=== PATIENT | female | born 1970 | race Caucasian/White ===

== ENCOUNTER 2020-01-28 10:54 | Outpatient (REF) | payer OTHER, SELFPAY ==
[2020-01-28 11:36] LABS: MANUAL DIFF FLAG NO
[2020-01-28 11:41] LABS: Basophils Absolute Auto 0.1 X10*3/uL (0.0-0.2); Basophils Percent Auto 0.5 % (0-2); Eosinophils Absolute Auto 0.3 X10*3/uL (0.0-0.4); Eosinophils Percent Auto 3.3 % (0-4); Hematocrit 42.7 % (37-47); Hemoglobin 13.8 g/dl (12.0-16.0); Imm Gran Abs Auto 0.04 X10*3/uL (0.00-0.03); Imm Gran Pct Auto 0.4 % (0.0-0.4); Lymphocytes Absolute Auto 3.3 X10*3/uL (1.2-4.9); Lymphocytes Percent Auto 34.1 % (20-40); Mean Corpuscular HGB Conc 32.3 g/dl (31.0-35.0); Mean Corpuscular Hemoglobin 30.3 pg (27.0-33.0); Mean Corpuscular Volume 93.6 fL (80-98); Mean Platelet Volume 9.1 fL (9.4-12.3); Monocytes Absolute Auto 0.5 X10*3/uL (0.1-1.2); Monocytes Percent Auto 5.1 % (2-11); Neutrophils Absolute Auto 5.5 X10*3/uL (2.0-8.3); Neutrophils Percent Auto 56.6 % (45-73); Platelet Count 268 X10*3/uL (160-400); Red Blood Count 4.56 X10*6/uL (4.20-5.50); Red Cell Distribution Width 12.6 % (11.0-16.0); White Blood Count 9.8 X10*3/uL (4.8-10.8)
== END 2020-01-28 10:55 | disposition home or self-care (01) ==
LOC: HO.LABR 10:54
PROVIDERS: PCP Internal Medicine; Visit Provider Clinical Nurse Specialist Psychiatric/Mental Health, Adult
DX: Z79.899 Other long term (current) drug therapy (principal)
CPT/HCPCS: 36415; 85025

== ENCOUNTER 2020-03-04 12:31 | Outpatient (REF) | payer OTHER, SELFPAY ==
[2020-03-04 13:15] LABS: MANUAL DIFF FLAG NO
[2020-03-04 13:20] LABS: Basophils Absolute Auto 0.1 X10*3/uL (0.0-0.2); Basophils Percent Auto 0.5 % (0-2); Eosinophils Absolute Auto 0.3 X10*3/uL (0.0-0.4); Hematocrit 41.8 % (37-47); Hemoglobin 13.3 g/dl (12.0-16.0); Imm Gran Abs Auto 0.06 X10*3/uL (0.00-0.03); Imm Gran Pct Auto 0.5 % (0.0-0.4); Lymphocytes Percent Auto 32.7 % (20-40); Mean Corpuscular HGB Conc 31.8 g/dl (31.0-35.0); Mean Corpuscular Hemoglobin 29.8 pg (27.0-33.0); Mean Corpuscular Volume 93.7 fL (80-98); Mean Platelet Volume 8.8 fL (9.4-12.3); Monocytes Absolute Auto 0.6 X10*3/uL (0.1-1.2); Monocytes Percent Auto 4.8 % (2-11); Neutrophils Absolute Auto 7.4 X10*3/uL (2.0-8.3); Neutrophils Percent Auto 59.5 % (45-73); Platelet Count 312 X10*3/uL (160-400); Red Blood Count 4.46 X10*6/uL (4.20-5.50); Red Cell Distribution Width 12.7 % (11.0-16.0); White Blood Count 12.4 X10*3/uL (4.8-10.8)
== END 2020-03-04 12:32 | disposition home or self-care (01) ==
LOC: HO.LAB 12:31
PROVIDERS: PCP Internal Medicine; Visit Provider Clinical Nurse Specialist Psychiatric/Mental Health, Adult
DX: Z79.899 Other long term (current) drug therapy (principal)
CPT/HCPCS: 36415; 85025

== ENCOUNTER 2020-03-30 15:42 | Outpatient (REF) | payer OTHER, SELFPAY ==
[2020-03-30 16:32] LABS: MANUAL DIFF FLAG NO
[2020-03-30 16:38] LABS: Basophils Percent Auto 0.4 % (0-2); Eosinophils Absolute Auto 0.3 X10*3/uL (0.0-0.4); Eosinophils Percent Auto 2.5 % (0-4); Hematocrit 42.2 % (37-47); Hemoglobin 13.2 g/dl (12.0-16.0); Imm Gran Abs Auto 0.03 X10*3/uL (0.00-0.03); Imm Gran Pct Auto 0.3 % (0.0-0.4); Lymphocytes Absolute Auto 3.9 X10*3/uL (1.2-4.9); Lymphocytes Percent Auto 37.3 % (20-40); Mean Corpuscular HGB Conc 31.3 g/dl (31.0-35.0); Mean Corpuscular Hemoglobin 29.8 pg (27.0-33.0); Mean Corpuscular Volume 95.3 fL (80-98); Monocytes Absolute Auto 0.5 X10*3/uL (0.1-1.2); Monocytes Percent Auto 4.6 % (2-11); Neutrophils Absolute Auto 5.7 X10*3/uL (2.0-8.3); Neutrophils Percent Auto 54.9 % (45-73); Platelet Count 242 X10*3/uL (160-400); Red Blood Count 4.43 X10*6/uL (4.20-5.50); Red Cell Distribution Width 12.8 % (11.0-16.0); White Blood Count 10.4 X10*3/uL (4.8-10.8)
== END 2020-03-30 15:43 | disposition home or self-care (01) ==
LOC: HO.LABR 15:42
PROVIDERS: PCP Internal Medicine; Visit Provider Clinical Nurse Specialist Psychiatric/Mental Health, Adult
DX: Z79.899 Other long term (current) drug therapy (principal); E78.2 Mixed hyperlipidemia
CPT/HCPCS: 36415; 85025

== ENCOUNTER 2020-04-27 10:17 | Outpatient (REF) | payer OTHER, SELFPAY ==
[2020-04-27 11:34] LABS: MANUAL DIFF FLAG NO
[2020-04-27 11:45] LABS: Basophils Absolute Auto 0.1 X10*3/uL (0.0-0.2); Basophils Percent Auto 0.5 % (0-2); Eosinophils Absolute Auto 0.2 X10*3/uL (0.0-0.4); Eosinophils Percent Auto 1.9 % (0-4); Hematocrit 43.4 % (37-47); Hemoglobin 14.1 g/dl (12.0-16.0); Imm Gran Abs Auto 0.04 X10*3/uL (0.00-0.03); Imm Gran Pct Auto 0.4 % (0.0-0.4); Lymphocytes Absolute Auto 3.6 X10*3/uL (1.2-4.9); Lymphocytes Percent Auto 34.8 % (20-40); Mean Corpuscular HGB Conc 32.5 g/dl (31.0-35.0); Mean Corpuscular Hemoglobin 29.9 pg (27.0-33.0); Mean Corpuscular Volume 91.9 fL (80-98); Mean Platelet Volume 9.5 fL (9.4-12.3); Monocytes Absolute Auto 0.5 X10*3/uL (0.1-1.2); Neut%MD 57.4 %; Neutrophils Absolute Auto 5.9 X10*3/uL (2.0-8.3); Neutrophils Percent Auto 57.4 % (45-73); Platelet Count 245 X10*3/uL (160-400); Red Blood Count 4.72 X10*6/uL (4.20-5.50); Red Cell Distribution Width 12.8 % (11.0-16.0); WBCANC 10.3 X10*3/uL; White Blood Count 10.3 X10*3/uL (4.8-10.8)
[2020-05-01 15:07] LABS: Clozapine (Clozaril) 286 mcg/L; Norclozapine 103 mcg/L (25-400)
== END 2020-04-27 10:18 | disposition home or self-care (01) ==
LOC: HO.LABR 10:17
PROVIDERS: PCP Internal Medicine; Visit Provider Clinical Nurse Specialist Psychiatric/Mental Health, Adult
DX: Z79.899 Other long term (current) drug therapy (principal)
CPT/HCPCS: 36415; 80159; 85025; 85048

== ENCOUNTER 2020-05-27 11:09 | Outpatient (REF) | payer OTHER, SELFPAY ==
[2020-05-27 12:03] LABS: MANUAL DIFF FLAG NO
[2020-05-27 12:08] LABS: Basophils Absolute Auto 0.1 X10*3/uL (0.0-0.2); Basophils Percent Auto 0.5 % (0-2); Eosinophils Absolute Auto 0.3 X10*3/uL (0.0-0.4); Eosinophils Percent Auto 2.9 % (0-4); Hematocrit 41.9 % (37-47); Hemoglobin 13.6 g/dl (12.0-16.0); Imm Gran Abs Auto 0.04 X10*3/uL (0.00-0.03); Imm Gran Pct Auto 0.4 % (0.0-0.4); Lymphocytes Absolute Auto 3.9 X10*3/uL (1.2-4.9); Lymphocytes Percent Auto 40.9 % (20-40); Mean Corpuscular HGB Conc 32.5 g/dl (31.0-35.0); Mean Corpuscular Hemoglobin 30.2 pg (27.0-33.0); Mean Corpuscular Volume 92.9 fL (80-98); Mean Platelet Volume 9.7 fL (9.4-12.3); Monocytes Absolute Auto 0.5 X10*3/uL (0.1-1.2); Monocytes Percent Auto 5.4 % (2-11); Neut%MD 49.9 %; Neutrophils Absolute Auto 4.8 X10*3/uL (2.0-8.3); Neutrophils Percent Auto 49.9 % (45-73); Platelet Count 246 X10*3/uL (160-400); Red Blood Count 4.51 X10*6/uL (4.20-5.50); Red Cell Distribution Width 12.9 % (11.0-16.0); WBCANC 9.6 X10*3/uL; White Blood Count 9.6 X10*3/uL (4.8-10.8)
== END 2020-05-27 11:10 | disposition home or self-care (01) ==
LOC: HO.LABR 11:09
PROVIDERS: PCP Internal Medicine; Visit Provider Clinical Nurse Specialist Psychiatric/Mental Health, Adult
DX: Z79.899 Other long term (current) drug therapy (principal)
CPT/HCPCS: 36415; 85025; 85048

== ENCOUNTER 2020-06-24 11:46 | Outpatient (REF) | payer OTHER, SELFPAY ==
[2020-06-24 13:04] LABS: MANUAL DIFF FLAG NO
[2020-06-24 13:22] LABS: Basophils Absolute Auto 0.1 X10*3/uL (0.0-0.2); Basophils Percent Auto 0.5 % (0-2); Eosinophils Absolute Auto 0.3 X10*3/uL (0.0-0.4); Eosinophils Percent Auto 2.9 % (0-4); Hematocrit 44.4 % (37-47); Hemoglobin 14.1 g/dl (12.0-16.0); Imm Gran Abs Auto 0.03 X10*3/uL (0.00-0.03); Imm Gran Pct Auto 0.3 % (0.0-0.4); Lymphocytes Absolute Auto 3.8 X10*3/uL (1.2-4.9); Lymphocytes Percent Auto 35.5 % (20-40); Mean Corpuscular HGB Conc 31.8 g/dl (31.0-35.0); Mean Corpuscular Hemoglobin 29.9 pg (27.0-33.0); Mean Corpuscular Volume 94.3 fL (80-98); Mean Platelet Volume 9.6 fL (9.4-12.3); Monocytes Absolute Auto 0.5 X10*3/uL (0.1-1.2); Monocytes Percent Auto 4.9 % (2-11); Neut%MD 55.9 %; Neutrophils Absolute Auto 5.9 X10*3/uL (2.0-8.3); Neutrophils Percent Auto 55.9 % (45-73); Platelet Count 262 X10*3/uL (160-400); Red Blood Count 4.71 X10*6/uL (4.20-5.50); Red Cell Distribution Width 13.1 % (11.0-16.0); WBCANC 10.6 X10*3/uL; White Blood Count 10.6 X10*3/uL (4.8-10.8)
== END 2020-06-24 11:47 | disposition home or self-care (01) ==
LOC: HO.LABR 11:46
PROVIDERS: PCP Internal Medicine; Visit Provider Clinical Nurse Specialist Psychiatric/Mental Health, Adult
DX: Z79.899 Other long term (current) drug therapy (principal)
CPT/HCPCS: 36415; 85025; 85048

== ENCOUNTER 2020-07-22 13:32 | Outpatient (REF) | payer OTHER, SELFPAY ==
[2020-07-22 14:06] LABS: MANUAL DIFF FLAG NO
[2020-07-22 14:07] LABS: Basophils Absolute Auto 0.1 X10*3/uL (0.0-0.2); Basophils Percent Auto 0.6 % (0-2); Eosinophils Absolute Auto 0.3 X10*3/uL (0.0-0.4); Eosinophils Percent Auto 2.8 % (0-4); Hematocrit 45.3 % (37-47); Hemoglobin 14.6 g/dl (12.0-16.0); Imm Gran Abs Auto 0.03 X10*3/uL (0.00-0.03); Imm Gran Pct Auto 0.3 % (0.0-0.4); Lymphocytes Absolute Auto 3.3 X10*3/uL (1.2-4.9); Lymphocytes Percent Auto 31.5 % (20-40); Mean Corpuscular HGB Conc 32.2 g/dl (31.0-35.0); Mean Corpuscular Volume 93.2 fL (80-98); Mean Platelet Volume 8.9 fL (9.4-12.3); Monocytes Absolute Auto 0.5 X10*3/uL (0.1-1.2); Neutrophils Absolute Auto 6.2 X10*3/uL (2.0-8.3); Neutrophils Percent Auto 59.8 % (45-73); Platelet Count 262 X10*3/uL (160-400); Red Blood Count 4.86 X10*6/uL (4.20-5.50); Red Cell Distribution Width 13.1 % (11.0-16.0); White Blood Count 10.4 X10*3/uL (4.8-10.8)
== END 2020-07-22 13:33 | disposition home or self-care (01) ==
LOC: HO.LABR 13:32
PROVIDERS: PCP Internal Medicine; Visit Provider Clinical Nurse Specialist Psychiatric/Mental Health, Adult
DX: Z79.899 Other long term (current) drug therapy (principal)
CPT/HCPCS: 36415; 85025

== ENCOUNTER 2020-08-19 13:39 | Outpatient (REF) | payer OTHER, SELFPAY ==
[2020-08-19 14:31] LABS: MANUAL DIFF FLAG NO
[2020-08-19 14:35] LABS: Basophils Absolute Auto 0.1 X10*3/uL (0.0-0.2); Basophils Percent Auto 0.5 % (0-2); Eosinophils Absolute Auto 0.3 X10*3/uL (0.0-0.4); Hematocrit 41.3 % (37-47); Hemoglobin 13.4 g/dl (12.0-16.0); Imm Gran Abs Auto 0.03 X10*3/uL (0.00-0.03); Imm Gran Pct Auto 0.3 % (0.0-0.4); Lymphocytes Absolute Auto 3.6 X10*3/uL (1.2-4.9); Lymphocytes Percent Auto 36.9 % (20-40); Mean Corpuscular HGB Conc 32.4 g/dl (31.0-35.0); Mean Corpuscular Hemoglobin 30.3 pg (27.0-33.0); Mean Corpuscular Volume 93.4 fL (80-98); Mean Platelet Volume 9.4 fL (9.4-12.3); Monocytes Absolute Auto 0.6 X10*3/uL (0.1-1.2); Monocytes Percent Auto 6.4 % (2-11); Neut%MD 52.9 %; Neutrophils Absolute Auto 5.2 X10*3/uL (2.0-8.3); Neutrophils Percent Auto 52.9 % (45-73); Platelet Count 277 X10*3/uL (160-400); Red Blood Count 4.42 X10*6/uL (4.20-5.50); Red Cell Distribution Width 12.7 % (11.0-16.0); WBCANC 9.8 X10*3/uL; White Blood Count 9.8 X10*3/uL (4.8-10.8)
== END 2020-08-19 13:40 | disposition home or self-care (01) ==
LOC: HO.LABR 13:39
PROVIDERS: PCP Internal Medicine; Visit Provider Clinical Nurse Specialist Psychiatric/Mental Health, Adult
DX: Z79.899 Other long term (current) drug therapy (principal)
CPT/HCPCS: 36415; 85025; 85048

== ENCOUNTER 2020-09-27 09:22 | Outpatient (REF) | payer OTHER, SELFPAY ==
[2020-09-27 10:21] LABS: MANUAL DIFF FLAG NO
[2020-09-27 10:40] LABS: Basophils Absolute Auto 0.1 X10*3/uL (0.0-0.2); Basophils Percent Auto 0.6 % (0-2); Eosinophils Absolute Auto 0.3 X10*3/uL (0.0-0.4); Hematocrit 42.7 % (37-47); Hemoglobin 13.6 g/dl (12.0-16.0); Imm Gran Abs Auto 0.04 X10*3/uL (0.00-0.03); Imm Gran Pct Auto 0.4 % (0.0-0.4); Lymphocytes Absolute Auto 2.7 X10*3/uL (1.2-4.9); Lymphocytes Percent Auto 26.3 % (20-40); Mean Corpuscular HGB Conc 31.9 g/dl (31.0-35.0); Mean Corpuscular Hemoglobin 30.2 pg (27.0-33.0); Mean Corpuscular Volume 94.7 fL (80-98); Mean Platelet Volume 9.6 fL (9.4-12.3); Monocytes Absolute Auto 0.5 X10*3/uL (0.1-1.2); Monocytes Percent Auto 4.5 % (2-11); Neutrophils Absolute Auto 6.7 X10*3/uL (2.0-8.3); Neutrophils Percent Auto 65.2 % (45-73); Platelet Count 249 X10*3/uL (160-400); Red Blood Count 4.51 X10*6/uL (4.20-5.50); Red Cell Distribution Width 13.2 % (11.0-16.0); White Blood Count 10.2 X10*3/uL (4.8-10.8)
== END 2020-09-27 09:23 | disposition home or self-care (01) ==
LOC: HO.LABR 09:22
PROVIDERS: PCP Internal Medicine; Visit Provider Clinical Nurse Specialist Psychiatric/Mental Health, Adult
DX: Z79.899 Other long term (current) drug therapy (principal)
CPT/HCPCS: 36415; 85025

== ENCOUNTER 2020-10-26 14:39 | Outpatient (REF) | payer OTHER, SELFPAY ==
[2020-10-26 15:04] LABS: MANUAL DIFF FLAG NO
[2020-10-26 15:07] LABS: Basophils Absolute Auto 0.1 X10*3/uL (0.0-0.2); Basophils Percent Auto 0.4 % (0-2); Eosinophils Absolute Auto 0.3 X10*3/uL (0.0-0.4); Eosinophils Percent Auto 2.8 % (0-4); Hematocrit 41.5 % (37-47); Hemoglobin 13.3 g/dl (12.0-16.0); Imm Gran Abs Auto 0.04 X10*3/uL (0.00-0.03); Imm Gran Pct Auto 0.3 % (0.0-0.4); Lymphocytes Absolute Auto 3.7 X10*3/uL (1.2-4.9); Lymphocytes Percent Auto 31.2 % (20-40); Mean Corpuscular Hemoglobin 30.2 pg (27.0-33.0); Mean Corpuscular Volume 94.1 fL (80-98); Mean Platelet Volume 8.9 fL (9.4-12.3); Monocytes Absolute Auto 0.6 X10*3/uL (0.1-1.2); Monocytes Percent Auto 4.8 % (2-11); Neutrophils Absolute Auto 7.3 X10*3/uL (2.0-8.3); Neutrophils Percent Auto 60.5 % (45-73); Platelet Count 251 X10*3/uL (160-400); Red Blood Count 4.41 X10*6/uL (4.20-5.50); Red Cell Distribution Width 12.6 % (11.0-16.0)
== END 2020-10-26 14:40 | disposition home or self-care (01) ==
LOC: HO.LABR 14:39
PROVIDERS: PCP Internal Medicine; Visit Provider Clinical Nurse Specialist Psychiatric/Mental Health, Adult
DX: Z79.899 Other long term (current) drug therapy (principal)
CPT/HCPCS: 36415; 85025

== ENCOUNTER 2020-11-23 09:54 | Outpatient (REF) | payer OTHER, SELFPAY ==
[2020-11-23 10:32] LABS: Basophils Absolute Auto 0.1 X10*3/uL (0.0-0.2); Basophils Percent Auto 0.6 % (0-2); Eosinophils Absolute Auto 0.3 X10*3/uL (0.0-0.4); Eosinophils Percent Auto 2.9 % (0-4); Hematocrit 41.9 % (37-47); Hemoglobin 13.6 g/dl (12.0-16.0); Imm Gran Abs Auto 0.04 X10*3/uL (0.00-0.03); Imm Gran Pct Auto 0.4 % (0.0-0.4); Lymphocytes Absolute Auto 2.9 X10*3/uL (1.2-4.9); Lymphocytes Percent Auto 29.6 % (20-40); MANUAL DIFF FLAG NO; Mean Corpuscular HGB Conc 32.5 g/dl (31.0-35.0); Mean Corpuscular Hemoglobin 29.9 pg (27.0-33.0); Mean Corpuscular Volume 92.1 fL (80-98); Mean Platelet Volume 9.3 fL (9.4-12.3); Monocytes Absolute Auto 0.5 X10*3/uL (0.1-1.2); Monocytes Percent Auto 4.5 % (2-11); Neutrophils Absolute Auto 6.1 X10*3/uL (2.0-8.3); Platelet Count 242 X10*3/uL (160-400); Red Blood Count 4.55 X10*6/uL (4.20-5.50); Red Cell Distribution Width 12.8 % (11.0-16.0); White Blood Count 9.9 X10*3/uL (4.8-10.8)
== END 2020-11-23 09:55 | disposition home or self-care (01) ==
LOC: HO.LABR 09:54
PROVIDERS: PCP Internal Medicine; Visit Provider Clinical Nurse Specialist Psychiatric/Mental Health, Adult
DX: Z79.899 Other long term (current) drug therapy (principal)
CPT/HCPCS: 36415; 85025

== ENCOUNTER 2021-01-03 10:24 | Outpatient (REF) | payer OTHER, SELFPAY ==
[2021-01-03 11:08] LABS: MANUAL DIFF FLAG NO
[2021-01-03 11:47] LABS: Basophils Percent Auto 0.4 % (0-2); Eosinophils Absolute Auto 0.3 X10*3/uL (0.0-0.4); Eosinophils Percent Auto 2.6 % (0-4); Hematocrit 43.9 % (37-47); Hemoglobin 14.1 g/dl (12.0-16.0); Imm Gran Abs Auto 0.04 X10*3/uL (0.00-0.03); Imm Gran Pct Auto 0.4 % (0.0-0.4); Lymphocytes Absolute Auto 3.6 X10*3/uL (1.2-4.9); Lymphocytes Percent Auto 34.4 % (20-40); Mean Corpuscular HGB Conc 32.1 g/dl (31.0-35.0); Mean Corpuscular Volume 93.4 fL (80-98); Mean Platelet Volume 9.2 fL (9.4-12.3); Monocytes Absolute Auto 0.6 X10*3/uL (0.1-1.2); Monocytes Percent Auto 5.9 % (2-11); Neut%MD 56.3 %; Neutrophils Absolute Auto 5.9 X10*3/uL (2.0-8.3); Neutrophils Percent Auto 56.3 % (45-73); Platelet Count 293 X10*3/uL (160-400); Red Cell Distribution Width 13.1 % (11.0-16.0); WBCANC 10.5 X10*3/uL; White Blood Count 10.5 X10*3/uL (4.8-10.8)
== END 2021-01-03 10:25 | disposition home or self-care (01) ==
LOC: HO.LABR 10:24
PROVIDERS: Visit Provider Clinical Nurse Specialist Psychiatric/Mental Health, Adult
DX: Z79.899 Other long term (current) drug therapy (principal)
CPT/HCPCS: 36415; 85025

== ENCOUNTER 2021-01-13 12:16 | Outpatient (REF) | payer OTHER, SELFPAY ==
[2021-01-13 13:33] LABS: Alanine Aminotransferase 15 U/L (0-31); Alkaline Phosphatase 85 U/L (39-117); Anion Gap 10 (12-20); Aspartate Amino Transferase 12 U/L (5-31); Bilirubin Total 0.6 mg/dL (0.0-1.0); Blood Urea Nitrogen 12 mg/dL (9-16); Calcium 9.7 mg/dL (8.4-10.2); Carbon Dioxide 29 mmol/L (22-29); Chloride 105 mmol/L (96-108); Estimated Glomerular Filt Rate > 60; Glucose Random 97 mg/dL (60-115); Potassium 4.3 mmol/L (3.3-5.1); Sodium 140 mmol/L (135-145); Total Protein 6.7 g/dL (6.5-8.0)
[2021-01-13 13:35] LABS: Valproate 17.6 mcg/mL (50.0-100.0)
[2021-01-13 13:40] LABS: Lithium 0.83 mmol/L (0.60-1.20)
[2021-01-13 13:56] LABS: Thyroid Stimulating Hormone 0.79 uIU/mL (0.32-4.0)
== END 2021-01-13 12:17 | disposition home or self-care (01) ==
LOC: HO.LAB 12:16
PROVIDERS: PCP Internal Medicine; Visit Provider Clinical Nurse Specialist Psychiatric/Mental Health, Adult
DX: Z79.899 Other long term (current) drug therapy (principal)
CPT/HCPCS: 36415; 80053; 80164; 80178; 84443

== ENCOUNTER 2021-01-31 09:07 | Outpatient (REF) | payer OTHER, SELFPAY ==
[2021-01-31 09:32] LABS: MANUAL DIFF FLAG NO
[2021-01-31 10:06] LABS: Basophils Absolute Auto 0.1 X10*3/uL (0.0-0.2); Basophils Percent Auto 0.5 % (0-2); Eosinophils Absolute Auto 0.3 X10*3/uL (0.0-0.4); Eosinophils Percent Auto 3.2 % (0-4); Hematocrit 44.6 % (37-47); Hemoglobin 14.1 g/dl (12.0-16.0); Imm Gran Abs Auto 0.05 X10*3/uL (0.00-0.03); Imm Gran Pct Auto 0.5 % (0.0-0.4); Lymphocytes Absolute Auto 3.1 X10*3/uL (1.2-4.9); Lymphocytes Percent Auto 29.4 % (20-40); Mean Corpuscular HGB Conc 31.6 g/dl (31.0-35.0); Mean Corpuscular Hemoglobin 29.8 pg (27.0-33.0); Mean Corpuscular Volume 94.3 fL (80-98); Mean Platelet Volume 9.2 fL (9.4-12.3); Monocytes Absolute Auto 0.5 X10*3/uL (0.1-1.2); Monocytes Percent Auto 4.6 % (2-11); Neutrophils Absolute Auto 6.4 X10*3/uL (2.0-8.3); Neutrophils Percent Auto 61.8 % (45-73); Platelet Count 307 X10*3/uL (160-400); Red Blood Count 4.73 X10*6/uL (4.20-5.50); Red Cell Distribution Width 13.4 % (11.0-16.0); White Blood Count 10.4 X10*3/uL (4.8-10.8)
== END 2021-01-31 09:08 | disposition home or self-care (01) ==
LOC: HO.LABR 09:07
PROVIDERS: Visit Provider Clinical Nurse Specialist Psychiatric/Mental Health, Adult
DX: Z79.899 Other long term (current) drug therapy (principal)
CPT/HCPCS: 36415; 85025

== ENCOUNTER 2021-01-31 16:10 | Emergency (ER) | payer OTHER, SELFPAY ==
--- NOTE | ~2021-01-31 | CT_ITS ---
EXAMINATION: CT ANGIOGRAM HEAD CT ANGIOGRAM NECK CLINICAL INFORMATION: Right-sided headache with weakness. COMPARISON: CT head from 01/31/2021. TECHNIQUE: Initial noncontrast asic design engineer imaging of the head and neck was performed. Comparison is made with noncontrast head CT from earlier today. Test bolus sequences followed by intravenous administration 70 mL of Omnipaque 350. Helical imaging was performed in the axial plane from the aortic arch to the skull vertex. Delayed postcontrast imaging of the head was also performed. The data was processed at the electronic technologist's workstation for generation of MIP sequences. Angled MIPs and volume rendered reformatted images were also generated at an offline 3D workstation. Stenoses are assessed in accordance with NASCET criteria unless otherwise indicated. This CT examination was performed using dose optimization techniques as appropriate, variously including the following: *Automated exposure control. *Adjustment of mA and/or kV according to patient size (this includes techniques or standardized protocols for targeted exams where dose is matched to indication/reason for exam; i.e. extremities or head). *Use of iterative reconstruction technique. DLP: 1657 mGy-cm FINDINGS: CT Head: There is no evidence of acute intracranial hemorrhage or edematous territorial infarction. There is no abnormal attenuation within the brain parenchyma. Hoang-white matter differentiation is preserved. The ventricles are normal in size and configuration. No evidence for obstructive hydrocephalus. No abnormal mass effect or midline shift. No extra-axial fluid collections. No pathologic intra-axial enhancement or regional oligemia. No acute soft tissue or osseous abnormalities. Mild mucosal thickening of the paranasal sinuses. Moderate rightward nasal septal deviation. The mastoid air cells and middle ear cavities are clear. Mild degenerative arthropathy of the temporal mandibular joints. Mild periapical lucencies associated with the maxillary and mandibular right-sided molars. CT Neck: The thyroid gland and remaining cervical soft tissues are within normal limits. Mild multilevel degenerative spinal arthropathy of the cervical spine. CT Upper Chest: The visualized lung apices and upper mediastinum are within normal limits. Neck CTA: Aortic Arch: Normal contour and caliber. Classic 3 vessel branching pattern of the aortic arch. Great Vessel Origins: No significant stenosis of the branch origins. Right Common Carotid Artery: No focal stenosis or occlusion. Cervical Right Internal Carotid Artery: Normal opacification without focal stenosis or occlusion. Left Common Carotid Artery: No focal stenosis or occlusion. Cervical Left Internal Carotid Artery: Normal opacification without focal stenosis or occlusion. Cervical Right Vertebral Artery: Co-dominant. No focal stenosis or occlusion. Cervical Left Vertebral Artery: Co-dominant. No focal stenosis or occlusion. Brain CTA: Intracranial Internal Carotid Arteries: Mild calcific atherosclerotic disease of the intracranial internal carotid arteries without occlusion or flow-limiting stenosis. 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 Right Anterior Cerebral Artery: Normal A1 segment. Normal opacification of the distal VERN segments. Left Anterior Cerebral Artery: Normal A1 segment. Normal opacification of the distal VERN segments. Anterior Communicating Artery: Normal. Right Middle Cerebral Artery: Normal M1 segment of the MCA without focal stenosis or occlusion. Normal arborization of the distal segments. Left Middle Cerebral Artery: Normal M1 segment of the MCA without focal stenosis or occlusion. Normal arborization of the distal segments. Right Vertebral Artery: Normal V4 segment. Normal opacification of the proximal segments of the posterior inferior cerebellar artery. Left Vertebral Artery: Normal V4 segment. Normal opacification of the proximal segments of the posterior inferior cerebellar artery. Basilar Artery: Normal without focal stenosis or occlusion. Normal appearance of the proximal superior cerebellar arteries. Right Posterior Cerebral Artery: Normal P1 segment. Normal opacification of the distal TELECOM BILLING ANALYST segments. Left Posterior Cerebral Artery: Normal P1 segment. Normal opacification of the distal TELECOM BILLING ANALYST segments. Normal opacification of the superior sagittal, straight, transverse, and sigmoid sinuses. CT/CT angio head neck IMPRESSION: 1. No evidence of acute intracranial hemorrhage or edematous territorial infarction. Mild underlying microangiopathy and generalized cerebral volume loss. 2. CTA of the head and neck without proximal occlusion or flow-limiting stenosis. 3. 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
--- NOTE | ~2021-01-31 | CT_ITS ---
EXAMINATION: CT HEAD WITHOUT CONTRAST (STROKE PROTOCOL) CLINICAL INFORMATION: Stroke protocol. Headache. Altered mental status. COMPARISON: CT head September 27, 2014 TECHNIQUE: Contiguous axial imaging was performed from the skull base to vertex without intravenous administration of contrast. This CT examination was performed using dose optimization techniques as appropriate, variously including the following: *Automated exposure control *Adjustment of mA and/or kV according to patient size (this includes techniques or standardized protocols for targeted exams where dose is matched to indication/reason for exam; i.e. extremities or head) *Use of iterative reconstruction technique DLP: 863 mGy-cm FINDINGS: There is generalized global volume loss. There is mild prominence of the ventricles and the sulci . There is mild hypodensity of the periventricular white matter due to chronic small vessel ischemic disease. There are vascular calcifications of the internal carotid arteries bilaterally. There is no intracranial hemorrhage, hematoma, or extra-axial fluid collection. The ventricles are normal in size. There is no hydrocephalus, edema, or mass effect. The vaughn-white matter differentiation appears symmetric. There is no acute infarct or mass lesion. The calvarium appears intact. There is no pneumocephalus or orbital emphysema. The visualized sinuses and middle ears and mastoid air cells show no significant mucosal thickening. There are no air-fluid levels. CT/CT head for stroke IMPRESSION: No acute intracranial pathology. This critical result was discussed with Dr. Willingham at 1655 hours on 01/31/2021. It was ascertained that the content and urgency of the report was understood at the time of direct communication.
--- NOTE | 2021-01-31 09:35 | ECG_ITS ---
Test Reason : STROKE Blood Pressure : / mmHG Vent. Rate : 089 BPM Atrial Rate : 089 BPM P-R Int : 150 ms QRS Dur : 098 ms QT Int : 380 ms P-R-T Axes : 027 -39 007 degrees QTc Int : 462 ms Normal sinus rhythm Left axis deviation Nonspecific T wave abnormality Abnormal ECG When compared with ECG of 26-JAN-2018 12:32, Nonspecific T wave abnormality now evident in Inferior leads Nonspecific T wave abnormality no longer evident in Lateral leads Referred By: Da Kramer Electronically Signed By:DAYAMI HARVEY MD
[2021-01-31 16:18] VITALS: PULSE 88; BMI 34.3
[2021-01-31 16:25] VITALS: BP 119/70; PULSE 89; RESP 18; TEMP 36.5; O2SAT 94
--- NOTE | 2021-01-31 16:42 | ED.NEUROSD ---
HPI - Neuro Symptoms/Deficit General Chief Complaint: Neuro Symptoms/Deficit Stated Complaint: stroke alert Time Seen by Provider: 01/31/21 16:29 Source: patient Mode of arrival: ambulatory Limitations: no limitations History of Present Illness HPI Narrative: Patient 50 years old with history of bipolar disorder depression hypertension no history of migraine was doing okay just half an hour prior to arrival while with her friend noticed sudden onset of right-sided frontotemporal headache associated with bilateral leg weakness had difficulty in walking no facial asymmetry mild slurred speech no focal weakness noticed by the EMS after arrival patient felt better , walked to the bathroom. Related Data Allergies Allergy/AdvReac Type Severity Reaction Status Date / Time lamotrigine [From LAMICTAL] Allergy Unknown HEART Unverified 12/24/19 17:02 PALPITATIONS From SEROQUEL Allergy Unknown HEART Uncoded 12/24/19 17:02 PALPITATIONS Review of Systems Review of Systems: Yes all other systems are reviewed and are negative [facility] Social History Social History Alcohol intake: unknown Patient Tobacco Use Status: Tobacco use Unknown Use of substances other than those prescribed or required for medical reasons: No Advance Directives: No Advance Directives Information Provided: Yes Physical Exam Vital Signs: Vital Signs: Last Vital Signs Temp 98.4 F 01/31/21 19:49 Pulse 89 01/31/21 19:49 Resp 16 01/31/21 19:49 BP 139/92 H 01/31/21 19:49 Pulse Ox 94 01/31/21 19:49 Body Mass Index 34.3 Appearance: Alert. Oriented X3. No acute distress. Eyes: PERRLA, No Nystagmus ENT: Pharynx normal. Oral Mucosa moist, no temporal artery tenderness Neck: Normal inspection. Neck supple. CVS: Normal heart rate and rhythm. Pulses normal. Respiratory: No respiratory distress. Equal air entry bilateral, no wheezing/rales/rhonchi Abdomen: Soft and nontender. Bowel sounds are present, no mass palpable, no CVA tenderness Skin: Skin warm and dry. Normal skin color. Normal skin turgor. Extremities: No lower extremity edema. No calf tenderness Neuro: Oriented X 3. No motor deficit. No sensory deficit.No cerebellar signs , cranial nerves II-XII intact MDM - Neuro Symptoms/Deficit MDM Narrative Medical decision making narrative: Patient nonspecific headache with weakness NIHSS score was 0 CT head negative CTA head and neck also negative discharge patient home for likely migraine/tension headache. Patient ambulatory in the ER without any weakness Lab Data Attestation: I reviewed the patient's lab results. Result diagrams: 01/31/21 17:04 Labs: Lab Results 01/31/21 Range/Units 17:04 Sodium 139 (135-145) mmol/L Potassium 4.3 (3.3-5.1) mmol/L Chloride 104 (96-108) mmol/L Carbon Dioxide 27 (22-29) mmol/L Anion Gap 12 (12-20) BUN 11 (9-16) mg/dL Creatinine 0.68 (0.5-1.4) mg/dL Estim Creat Clear Calc 106.8 Estimated GFR > 60 Random Glucose 94 (60-115) mg/dL Calcium 9.2 (8.4-10.2) mg/dL NIH Stroke Scale Internal: Initial- Upon Arrival Level of Consciousness: Alert Level of Consciousness Questions: Answers both questions correctly Level of Consciousness Commands: Performs both tasks correctly Best Gaze: Normal Visual: No visual loss Facial Palsy: Normal Motor Arm (Right): No drift Motor Arm (Left): No drift Motor Leg (Right): No drift Motor Leg (Left): No drift Limb Ataxia: Absent Sensory: Normal Best Language: No aphasia Dysarthia: Normal Extinction and Inattention: No abnormality Score: 0 Discharge Plan Discharge Clinical Impression: Weakness Headache Qualifiers: Headache type: unspecified Headache chronicity pattern: unspecified pattern Intractability: not intractable Qualified Code(s): R51.9 - Headache, unspecified Patient Disposition: Home, Self-Care Instructions: Weakness (ED), General Headache (ED) Additional Instructions: No stroke was found in your CT scan The symptoms likely from tension headache with nonspecific weakness Follow-up with PCP if any concerns
[2021-01-31 17:28] LABS: Anion Gap 12 (12-20); Blood Urea Nitrogen 11 mg/dL (9-16); Calcium 9.2 mg/dL (8.4-10.2); Carbon Dioxide 27 mmol/L (22-29); Chloride 104 mmol/L (96-108); Creatinine Clr Calc Pharmacy 106.8; Estimated Glomerular Filt Rate > 60; Glucose Random 94 mg/dL (60-115); Potassium 4.3 mmol/L (3.3-5.1); Sodium 139 mmol/L (135-145)
[2021-01-31] MEDS: iohexoL 350 MG/ML 100 ML INFUS..BTL IV (19:23)
[2021-01-31 19:49] VITALS: BP 139/92; PULSE 89; RESP 16; TEMP 36.9; O2SAT 94
--- NOTE | 2021-01-31 19:51 | PC.NURSE ---
Pt sitting on stretcher in NAD, breathing with ease on RA, family at bedside. Pt aaox4, speaking in complete clear sentences. No facial droop or unilateral weakness noted/appreciated by this RN. Pt awaiting CTA results and dispo, is agreeable to plan.
== END 2021-01-31 20:28 | disposition home or self-care (01) ==
PROVIDERS: Emergency Provider Internal Medicine
DX: R53.1 Weakness (principal); R51.9 Headache, unspecified; I10 Essential (primary) hypertension
CPT/HCPCS: 36415; 70450; 70496; 70498; 80048; 93005; 99284; 99285; Q9967

== ENCOUNTER 2021-03-14 10:37 | Outpatient (REF) | payer OTHER, SELFPAY ==
[2021-03-14 10:52] LABS: MANUAL DIFF FLAG NO
[2021-03-14 11:48] LABS: Basophils Absolute Auto 0.1 X10*3/uL (0.0-0.2); Basophils Percent Auto 0.4 % (0-2); Eosinophils Absolute Auto 0.3 X10*3/uL (0.0-0.4); Eosinophils Percent Auto 2.7 % (0-4); Hematocrit 44.5 % (37.0-47.0); Hemoglobin 14.3 g/dl (12.0-16.0); Imm Gran Abs Auto 0.04 X10*3/uL (0.00-0.03); Imm Gran Pct Auto 0.4 % (0.0-0.4); Lymphocytes Absolute Auto 3.1 X10*3/uL (1.2-4.9); Lymphocytes Percent Auto 27.4 % (20-40); Mean Corpuscular HGB Conc 32.1 g/dl (31.0-35.0); Mean Corpuscular Hemoglobin 30.8 pg (27.0-33.0); Mean Corpuscular Volume 95.9 fL (80.0-98.0); Mean Platelet Volume 9.3 fL (9.4-12.3); Monocytes Absolute Auto 0.5 X10*3/uL (0.1-1.2); Monocytes Percent Auto 4.4 % (2-11); Neutrophils Absolute Auto 7.2 x10*3/uL (2.0-8.3); Neutrophils Percent Auto 64.7 % (45-73); Platelet Count 265 X10*3/uL (160-400); Red Blood Count 4.64 X10*6/uL (4.20-5.50); Red Cell Distribution Width 13.2 % (11.0-16.0); White Blood Count 11.2 X10*3/uL (4.8-10.8)
== END 2021-03-14 10:38 | disposition home or self-care (01) ==
LOC: HO.LABR 10:37
PROVIDERS: Visit Provider Clinical Nurse Specialist Psychiatric/Mental Health, Adult
DX: Z79.899 Other long term (current) drug therapy (principal)
CPT/HCPCS: 36415; 85025

== ENCOUNTER 2021-04-04 13:01 | Outpatient (REF) | payer OTHER, SELFPAY ==
[2021-04-04 13:15] LABS: MANUAL DIFF FLAG NO
[2021-04-04 14:04] LABS: Basophils Absolute Auto 0.1 X10*3/uL (0.0-0.2); Basophils Percent Auto 0.7 % (0-2); Eosinophils Absolute Auto 0.3 X10*3/uL (0.0-0.4); Eosinophils Percent Auto 3.2 % (0-4); Hematocrit 44.4 % (37.0-47.0); Hemoglobin 14.1 g/dl (12.0-16.0); Imm Gran Abs Auto 0.04 X10*3/uL (0.00-0.03); Imm Gran Pct Auto 0.4 % (0.0-0.4); Lymphocytes Absolute Auto 3.3 X10*3/uL (1.2-4.9); Lymphocytes Percent Auto 31.1 % (20-40); Mean Corpuscular HGB Conc 31.8 g/dl (31.0-35.0); Mean Corpuscular Hemoglobin 30.4 pg (27.0-33.0); Mean Corpuscular Volume 95.7 fL (80.0-98.0); Mean Platelet Volume 9.4 fL (9.4-12.3); Monocytes Absolute Auto 0.5 X10*3/uL (0.1-1.2); Monocytes Percent Auto 5.1 % (2-11); Neutrophils Absolute Auto 6.2 x10*3/uL (2.0-8.3); Neutrophils Percent Auto 59.5 % (45-73); Platelet Count 268 X10*3/uL (160-400); Red Blood Count 4.64 X10*6/uL (4.20-5.50); Red Cell Distribution Width 12.9 % (11.0-16.0); White Blood Count 10.5 X10*3/uL (4.8-10.8)
== END 2021-04-04 13:02 | disposition home or self-care (01) ==
LOC: HO.LABR 13:01
PROVIDERS: Visit Provider Clinical Nurse Specialist Psychiatric/Mental Health, Adult
DX: Z79.899 Other long term (current) drug therapy (principal)
CPT/HCPCS: 36415; 85025

== ENCOUNTER 2021-05-01 13:52 | Outpatient (REF) | payer OTHER, SELFPAY ==
[2021-05-01 14:04] LABS: MANUAL DIFF FLAG NO
[2021-05-01 14:39] LABS: Basophils Absolute Auto 0.1 X10*3/uL (0.0-0.2); Basophils Percent Auto 0.5 % (0-2); Eosinophils Absolute Auto 0.4 X10*3/uL (0.0-0.4); Eosinophils Percent Auto 2.9 % (0-4); Hemoglobin 14.4 g/dl (12.0-16.0); Imm Gran Abs Auto 0.06 X10*3/uL (0.00-0.03); Imm Gran Pct Auto 0.5 % (0.0-0.4); Lymphocytes Absolute Auto 4.2 X10*3/uL (1.2-4.9); Lymphocytes Percent Auto 33.3 % (20-40); Mean Corpuscular Hemoglobin 30.6 pg (27.0-33.0); Mean Corpuscular Volume 95.5 fL (80.0-98.0); Mean Platelet Volume 9.3 fL (9.4-12.3); Monocytes Absolute Auto 0.7 X10*3/uL (0.1-1.2); Monocytes Percent Auto 5.5 % (2-11); Neutrophils Absolute Auto 7.3 x10*3/uL (2.0-8.3); Neutrophils Percent Auto 57.3 % (45-73); Platelet Count 301 X10*3/uL (160-400); Red Blood Count 4.71 X10*6/uL (4.20-5.50); White Blood Count 12.7 X10*3/uL (4.8-10.8)
== END 2021-05-01 13:53 | disposition home or self-care (01) ==
LOC: HO.LABR 13:52
PROVIDERS: Visit Provider Clinical Nurse Specialist Psychiatric/Mental Health, Adult
DX: Z79.899 Other long term (current) drug therapy (principal)
CPT/HCPCS: 36415; 85025

== ENCOUNTER 2021-12-11 07:57 | Emergency (ER) | payer OTHER, SELFPAY ==
--- NOTE | 2021-12-11 08:15 | ED_ITS ---
HPI - General Adult General Chief complaint: General Medical Stated complaint: NOT FEELING WELL S/P TAKING A FEW MEDS Time Seen by Provider: 12/11/21 08:15 Source: patient and EMS Mode of arrival: EMS Limitations: no limitations History of Present Illness HPI narrative: Patient is a 51 year old female presenting to the emergency department today requesting a medication refill. Patient states that she didn't sleep well last night because her medication is wrong. Patient states that a nurse came and went through her pills with her but she is short multiple clonazepam and clozapine. Patient states that due to the holiday, she wasn't sure if she was going to be able to call and have them filled or not, so she came here. Patient states she is very concerned because she has an extensive psychiatric history and has not been sleeping. Patient denies any dizziness, lightheadedness, abdominal pain, nausea, vomiting, fever, chills, blurry vision, double vision, loss of vision, chest pain, difficulty breathing, shortness of breath, back pain, night sweats, pain with urination, increased urinary frequency, increased urinary urgency, blood in her urine or stool, syncope or a near syncopal episode, recent trauma or falls, bowel incontinence, bladder incontinence, bowel retention, bladder retention, or any other complaints at this time. Severity: mild Severity scale (1-10): 1 Relieving factors: none Exacerbating factors: none Associated symptoms: denies other symptoms Treatments prior to arrival: none Related Data Allergies Allergy/AdvReac Type Severity Reaction Status Date / Time lamotrigine [From LAMICTAL] Allergy Unknown HEART Unverified 12/24/19 17:02 PALPITATIONS From SEROQUEL Allergy Unknown HEART Uncoded 12/24/19 17:02 PALPITATIONS Review of Systems Constitutional: Constitutional: Reports no additional constitutional complaints, Denies chills, Denies fever(s) and Denies night sweats Eyes: Eyes: Reports no additional eye complaints, Denies blurry vision, Denies change in vision, Denies diplopia, Denies eye discharge, Denies loss of vision and Denies eye pain ENT: Denies dizziness Cardiovascular: Cardiovascular: Reports no additional cardiovascular complaints, Denies chest pain, Denies lightheadedness, Denies Loss of Consciousness and Denies dyspnea Respiratory: Respiratory: Reports no additional respiratory complaints and Denies dyspnea Gastrointestinal: Gastrointestinal: Reports no additional gastrointestinal complaints, Denies abdominal pain, Denies melena, Denies hematochezia, Denies change in bowel habits and Denies change in stool character Genitourinary: Genitourinary: Denies hematuria, Denies urinary frequency, Denies dysuria, Denies urinary incontinence, Denies urinary hesitancy and Denies urinary urgency Musculoskeletal: Musculoskeletal: Reports no additional musculoskeletal complaints, Denies numbness and Denies tingling Neurologic: Denies dizziness, Denies loss of vision, Denies numbness and Denies tingling Psychiatric: Psychiatric: Reports no additional psychiatric complaints Endocrine: Endocrine: Reports no additional endocrine complaints Hematologic/Lymphatic: Hematologic/Lymphatic: Reports no additional hematologic/lymphatic complaints Allergic/Immunologic: Allergic/Immunologic: Reports no additional allergic/immunologic complaints PMFSH Past Medical History Attestation statement: The following information was validated with the patient. Source: old records reviewed Social History Social History Alcohol intake: unknown Patient Tobacco Use Status: Tobacco use Unknown Advance Directives: No Advance Directives Information Provided: No Physical Exam ED Vital Signs: Vital Signs - 24 hr 12/11/21 08:20 Temperature 98 F Pulse Rate 74 Respiratory Rate 20 Blood Pressure 132/85 Pulse Oximetry 95 Oxygen Delivery Method Room Air BMI result Body Mass Index 42.0 Const General: cooperative, no acute distress, alert and awake Nutritional Appearance: well nourished Orientation/consciousness: patient oriented x3 Limitations: no limitations HENMT Head: Yes normal to inspection and Yes atraumatic Ears: hearing grossly normal bilaterally and external ears normal General nose exam: Normal external nose present, no nasal discharge noted and no epistaxis Face and sinus: Yes normal facial exam, No abrasion and No laceration Mouth: Normal oral and palatal mucosa present, no drooling and no muffled voice Eyes General: appearance normal, both eyes and all related structures Periorbital: periorbital findings normal Eyelids: Yes eyelids normal Conjunctivae: conjunctivae normal Pupils: Equal, round and reactive pupils present EOM: EOMs intact bilaterally Neck Neck: Yes normal visual inspection, Yes full ROM and Yes no lymphadenopathy Chest Chest palpation & inspection: normal inspection of the chest Resp Effort & Inspection: normal respiratory effort and able to speak in complete sentences Auscultation: clear to auscultation bilaterally Cardio Rate: regular rate Rhythm: regular rhythm GI Inspection: Yes normal to inspection Neuro General: patient oriented x3 and moves all extremities Cranial nerves: Yes Equal, round and reactive pupils present Cognition (Neuro): normal cognition Motor exam (neuro): 5/5 motor strength present throughout Sensory Exam: Normal double simultaneous stimulation for sensation Coordination: [id number] test normal Extrem General: Yes normal to inspection, Yes full ROM and Yes capillary refill normal Psych Appearance: grossly normal Mental Status: mental status grossly normal Affect: normal affect Attitude: cooperative Thought process: Normal thought process present Thought content: Normal thought content present Insight: Good insight present (Psych) Medical Decision Making MDM Narrative Medical decision making narrative: Patient is a 51 year old female presenting to the emergency department today f or a medication refill. Patient's physical exam was unremarkable. I explained my physical exam findings to the patient. I answered all questions asked by the patient. I called and spoke to the pharmacist at [facility] on [facility] and they stated that those prescriptions she is asking about are on hold and can be filled for her. Pharmacist stated that they will start working on filling them for her now. I stressed the importance of the patient taking her medication as prescribed. I stressed the importance of the patient following up with her primary care provider and her psychiatrist. I stressed the importance of the patient returning to the emergency department immediately if her symptoms were to worsen or if she were to develop any dizziness, shortness of breath, difficulty breathing, chest pain, blurry vision, loss of vision, nausea, vomiting, abdominal pain, fever, chills, back pain, or any other complaints. Patient verbalized agreement and understanding with this treatment plan and tello calixto. Differential Diagnosis Differential Diagnosis: med refill Medical Records Medical records reviewed: Yes I reviewed the patient's medical records. Discharge Plan Discharge Clinical Impression: Encounter for medication refill Patient Disposition: Home, Self-Care Instructions: Medicine Refill (ED) Additional Instructions: Follow up with your primary care provider. Return to the emergency department immediately if your symptoms worsen or if you develop any dizziness, shortness of breath, difficulty breathing, chest pain, blurry vision, loss of vision, nausea, vomiting, abdominal pain, fever, chills, back pain, or any other complaints. Referrals: [facility] [Provider Group] (Call to establish and follow up with a primary care provider. If you already have a primary care provider, please follow up with them. ) [facility], [place] [Provider Group] (Call to establish and follow up with a primary care provider. If you already have a primary care provider, please follow up with them. ) [facility] Primary [facility],[place] [Provider Group] (Call to establish and follow up with a primary care provider. If you already have a primary care provider, please follow up with them. ) Print Language: Occitan
[2021-12-11 08:20] VITALS: BP 124/80; BP 132/85; PULSE 74; PULSE 86; RESP 20; TEMP 36.6; O2SAT 92; O2SAT 95; BMI 42.0
== END 2021-12-11 08:42 | disposition home or self-care (01) ==
PROVIDERS: Emergency Provider Emergency Medicine
DX: Z76.0 Encounter for issue of repeat prescription (principal)
CPT/HCPCS: 99282

== ENCOUNTER 2022-07-23 13:42 | Outpatient (REF) | payer OTHER, SELFPAY ==
[2022-07-23 14:04] LABS: MANUAL DIFF FLAG NO
[2022-07-23 15:37] LABS: Basophils Absolute Auto 0.1 X10*3/uL (0.0-0.2); Basophils Percent Auto 0.6 % (0-2); Eosinophils Absolute Auto 0.3 X10*3/uL (0.0-0.4); Eosinophils Percent Auto 3.5 % (0-4); Hematocrit 40.2 % (37.0-47.0); Hemoglobin 12.6 g/dl (12.0-16.0); Imm Gran Abs Auto 0.03 X10*3/uL (0.00-0.03); Imm Gran Pct Auto 0.3 % (0.0-0.4); Lymphocytes Percent Auto 32.5 % (20-40); Mean Corpuscular HGB Conc 31.3 g/dl (31.0-35.0); Mean Corpuscular Hemoglobin 29.2 pg (27.0-33.0); Mean Corpuscular Volume 93.1 fL (80.0-98.0); Mean Platelet Volume 9.8 fL (9.4-12.3); Monocytes Absolute Auto 0.4 X10*3/uL (0.1-1.2); Monocytes Percent Auto 4.2 % (2-11); Neutrophils Absolute Auto 5.4 x10*3/uL (2.0-8.3); Neutrophils Percent Auto 58.9 % (45-73); Platelet Count 281 X10*3/uL (160-400); Red Blood Count 4.32 X10*6/uL (4.20-5.50); Red Cell Distribution Width 13.4 % (11.0-16.0); White Blood Count 9.3 X10*3/uL (4.8-10.8)
== END 2022-07-23 13:43 | disposition home or self-care (01) ==
LOC: HO.LABR 13:42
PROVIDERS: Visit Provider Clinical Nurse Specialist Psychiatric/Mental Health, Adult
DX: Z79.899 Other long term (current) drug therapy (principal)
CPT/HCPCS: 36415; 85025

== ENCOUNTER 2022-08-20 14:09 | Outpatient (REF) | payer OTHER, SELFPAY ==
[2022-08-20 15:59] LABS: Valproate 41.1 mcg/mL (50.0-100.0)
[2022-08-20 16:05] LABS: Alanine Aminotransferase 8 U/L (0-31); Albumin Level 3.8 g/dL (3.5-5.0); Alkaline Phosphatase 75 U/L (39-117); Anion Gap 11 (12-20); Aspartate Amino Transferase 11 U/L (5-31); Bilirubin Total 0.2 mg/dL (0.0-1.0); Blood Urea Nitrogen 16 mg/dL (9-16); Calcium 9.3 mg/dL (8.4-10.2); Carbon Dioxide 27 mmol/L (22-29); Chloride 105 mmol/L (96-108); Estimated Glomerular Filt Rate > 60; Glucose Random 108 mg/dL (60-115); Potassium 4.2 mmol/L (3.3-5.1); Sodium 139 mmol/L (135-145); Total Protein 6.5 g/dL (6.5-8.0)
[2022-08-20 16:19] LABS: Lithium 0.67 mmol/L (0.60-1.20)
[2022-08-20 16:22] LABS: Thyroid Stimulating Hormone 2.09 uIU/mL (0.32-4.0)
== END 2022-08-20 14:10 | disposition home or self-care (01) ==
LOC: HO.LAB 14:09
PROVIDERS: Visit Provider Clinical Nurse Specialist Psychiatric/Mental Health, Adult
DX: Z79.899 Other long term (current) drug therapy (principal)
CPT/HCPCS: 36415; 80053; 80164; 80178; 84443

== ENCOUNTER 2022-10-03 09:53 | Outpatient (REF) | payer OTHER, SELFPAY ==
[2022-10-03 10:03] LABS: MANUAL DIFF FLAG NO
[2022-10-03 10:32] LABS: Basophils Absolute Auto 0.1 X10*3/uL (0.0-0.2); Basophils Percent Auto 0.6 % (0-2); Eosinophils Absolute Auto 0.3 X10*3/uL (0.0-0.4); Eosinophils Percent Auto 2.4 % (0-4); Hematocrit 38.9 % (37.0-47.0); Hemoglobin 12.5 g/dl (12.0-16.0); Imm Gran Abs Auto 0.04 X10*3/uL (0.00-0.03); Imm Gran Pct Auto 0.4 % (0.0-0.4); Lymphocytes Absolute Auto 3.5 X10*3/uL (1.2-4.9); Lymphocytes Percent Auto 31.6 % (20-40); Mean Corpuscular HGB Conc 32.1 g/dl (31.0-35.0); Mean Corpuscular Hemoglobin 30.1 pg (27.0-33.0); Mean Corpuscular Volume 93.7 fL (80.0-98.0); Mean Platelet Volume 9.5 fL (9.4-12.3); Monocytes Absolute Auto 0.6 X10*3/uL (0.1-1.2); Neutrophils Absolute Auto 6.7 x10*3/uL (2.0-8.3); Platelet Count 266 X10*3/uL (160-400); Red Blood Count 4.15 X10*6/uL (4.20-5.50); Red Cell Distribution Width 13.2 % (11.0-16.0); White Blood Count 11.1 X10*3/uL (4.8-10.8)
== END 2022-10-03 09:54 | disposition home or self-care (01) ==
LOC: HO.LAB 09:53
PROVIDERS: Visit Provider Clinical Nurse Specialist Psychiatric/Mental Health, Adult
DX: Z79.899 Other long term (current) drug therapy (principal)
CPT/HCPCS: 36415; 85025

== ENCOUNTER 2022-10-30 13:34 | Outpatient (REF) | payer OTHER, SELFPAY ==
[2022-10-30 13:45] LABS: MANUAL DIFF FLAG NO
[2022-10-30 14:01] LABS: Basophils Absolute Auto 0.1 X10*3/uL (0.0-0.2); Basophils Percent Auto 0.9 % (0-2); Eosinophils Absolute Auto 0.4 X10*3/uL (0.0-0.4); Eosinophils Percent Auto 3.5 % (0-4); Hematocrit 38.8 % (37.0-47.0); Hemoglobin 12.4 g/dl (12.0-16.0); Imm Gran Abs Auto 0.03 X10*3/uL (0.00-0.03); Imm Gran Pct Auto 0.3 % (0.0-0.4); Lymphocytes Absolute Auto 3.8 X10*3/uL (1.2-4.9); Lymphocytes Percent Auto 35.8 % (20-40); Mean Corpuscular Hemoglobin 29.3 pg (27.0-33.0); Mean Corpuscular Volume 91.7 fL (80.0-98.0); Monocytes Absolute Auto 0.5 X10*3/uL (0.1-1.2); Monocytes Percent Auto 4.7 % (2-11); Neutrophils Absolute Auto 5.8 x10*3/uL (2.0-8.3); Neutrophils Percent Auto 54.8 % (45-73); Platelet Count 265 X10*3/uL (160-400); Red Blood Count 4.23 X10*6/uL (4.20-5.50); Red Cell Distribution Width 12.9 % (11.0-16.0); White Blood Count 10.5 X10*3/uL (4.8-10.8)
== END 2022-10-30 13:35 | disposition home or self-care (01) ==
LOC: HO.LABR 13:34
PROVIDERS: Visit Provider Clinical Nurse Specialist Psychiatric/Mental Health, Adult
DX: Z79.899 Other long term (current) drug therapy (principal)
CPT/HCPCS: 36415; 85025

== ENCOUNTER 2022-11-30 09:29 | Outpatient (REF) | payer OTHER, SELFPAY ==
[2022-11-30 09:49] LABS: MANUAL DIFF FLAG NO
[2022-11-30 10:04] LABS: Basophils Absolute Auto 0.1 X10*3/uL (0.0-0.2); Basophils Percent Auto 0.6 % (0-2); Eosinophils Absolute Auto 0.4 X10*3/uL (0.0-0.4); Eosinophils Percent Auto 3.8 % (0-4); Hematocrit 41.7 % (37.0-47.0); Hemoglobin 13.1 g/dl (12.0-16.0); Imm Gran Abs Auto 0.03 X10*3/uL (0.00-0.03); Imm Gran Pct Auto 0.3 % (0.0-0.4); Lymphocytes Absolute Auto 3.1 X10*3/uL (1.2-4.9); Lymphocytes Percent Auto 32.3 % (20-40); Mean Corpuscular HGB Conc 31.4 g/dl (31.0-35.0); Mean Corpuscular Hemoglobin 29.4 pg (27.0-33.0); Mean Corpuscular Volume 93.7 fL (80.0-98.0); Mean Platelet Volume 9.2 fL (9.4-12.3); Monocytes Absolute Auto 0.5 X10*3/uL (0.1-1.2); Monocytes Percent Auto 5.5 % (2-11); Neutrophils Absolute Auto 5.6 x10*3/uL (2.0-8.3); Neutrophils Percent Auto 57.5 % (45-73); Platelet Count 240 X10*3/uL (160-400); Red Blood Count 4.45 X10*6/uL (4.20-5.50); Red Cell Distribution Width 12.9 % (11.0-16.0); White Blood Count 9.7 X10*3/uL (4.8-10.8)
== END 2022-11-30 09:30 | disposition home or self-care (01) ==
LOC: HO.LABR 09:29
PROVIDERS: Visit Provider Clinical Nurse Specialist Psychiatric/Mental Health, Adult
DX: Z79.899 Other long term (current) drug therapy (principal)
CPT/HCPCS: 36415; 85025

== ENCOUNTER 2023-01-09 16:43 | Outpatient (REF) | payer OTHER, SELFPAY ==
[2023-01-09 16:53] LABS: MANUAL DIFF FLAG NO
[2023-01-09 17:51] LABS: Basophils Absolute Auto 0.1 X10*3/uL (0.0-0.2); Basophils Percent Auto 0.7 % (0-2); Eosinophils Absolute Auto 0.3 X10*3/uL (0.0-0.4); Eosinophils Percent Auto 2.9 % (0-4); Hematocrit 37.7 % (37.0-47.0); Hemoglobin 11.9 g/dl (12.0-16.0); Imm Gran Abs Auto 0.02 X10*3/uL (0.00-0.03); Imm Gran Pct Auto 0.2 % (0.0-0.4); Lymphocytes Percent Auto 30.1 % (20-40); Mean Corpuscular HGB Conc 31.6 g/dl (31.0-35.0); Mean Corpuscular Hemoglobin 29.3 pg (27.0-33.0); Mean Corpuscular Volume 92.9 fL (80.0-98.0); Mean Platelet Volume 9.7 fL (9.4-12.3); Monocytes Absolute Auto 0.7 X10*3/uL (0.1-1.2); Monocytes Percent Auto 6.5 % (2-11); Neut%MD 59.6 %; Neutrophils Percent Auto 59.6 % (45-73); Platelet Count 250 X10*3/uL (160-400); Red Blood Count 4.06 X10*6/uL (4.20-5.50); Red Cell Distribution Width 14.1 % (11.0-16.0); WBCANC 10.1 X10*3/uL; White Blood Count 10.1 X10*3/uL (4.8-10.8)
== END 2023-01-09 16:44 | disposition home or self-care (01) ==
LOC: HO.LABR 16:43
PROVIDERS: PCP Internal Medicine; Visit Provider Clinical Nurse Specialist Psychiatric/Mental Health, Adult
DX: Z79.899 Other long term (current) drug therapy (principal)
CPT/HCPCS: 36415; 85025

== ENCOUNTER 2023-02-22 12:47 | Outpatient (REF) | payer OTHER, SELFPAY ==
[2023-02-22 12:58] LABS: MANUAL DIFF FLAG NO
[2023-02-22 14:11] LABS: Basophils Absolute Auto 0.1 X10*3/uL (0.0-0.2); Basophils Percent Auto 0.6 % (0-2); Eosinophils Absolute Auto 0.3 X10*3/uL (0.0-0.4); Eosinophils Percent Auto 3.2 % (0-4); Hemoglobin 13.1 g/dl (12.0-16.0); Imm Gran Abs Auto 0.04 X10*3/uL (0.00-0.03); Imm Gran Pct Auto 0.4 % (0.0-0.4); Lymphocytes Absolute Auto 3.8 X10*3/uL (1.2-4.9); Mean Corpuscular Hemoglobin 30.3 pg (27.0-33.0); Mean Corpuscular Volume 94.7 fL (80.0-98.0); Mean Platelet Volume 9.8 fL (9.4-12.3); Monocytes Absolute Auto 0.5 X10*3/uL (0.1-1.2); Monocytes Percent Auto 5.1 % (2-11); Neutrophils Absolute Auto 4.9 x10*3/uL (2.0-8.3); Neutrophils Percent Auto 50.7 % (45-73); Platelet Count 259 X10*3/uL (160-400); Red Blood Count 4.33 X10*6/uL (4.20-5.50); White Blood Count 9.6 X10*3/uL (4.8-10.8)
== END 2023-02-22 12:48 | disposition home or self-care (01) ==
LOC: HO.LABR 12:47
PROVIDERS: Visit Provider Clinical Nurse Specialist Psychiatric/Mental Health, Adult
DX: Z79.899 Other long term (current) drug therapy (principal)
CPT/HCPCS: 36415; 85025

== ENCOUNTER 2023-03-21 12:04 | Outpatient (REF) | payer OTHER, SELFPAY ==
[2023-03-21 12:33] LABS: MANUAL DIFF FLAG NO
[2023-03-21 12:48] LABS: Basophils Absolute Auto 0.1 X10*3/uL (0.0-0.2); Basophils Percent Auto 0.7 % (0-2); Eosinophils Absolute Auto 0.3 X10*3/uL (0.0-0.4); Eosinophils Percent Auto 2.9 % (0-4); Hematocrit 41.3 % (37.0-47.0); Hemoglobin 13.2 g/dl (12.0-16.0); Imm Gran Abs Auto 0.03 X10*3/uL (0.00-0.03); Imm Gran Pct Auto 0.3 % (0.0-0.4); Lymphocytes Absolute Auto 3.6 X10*3/uL (1.2-4.9); Lymphocytes Percent Auto 38.1 % (20-40); Mean Corpuscular Hemoglobin 29.9 pg (27.0-33.0); Mean Corpuscular Volume 93.4 fL (80.0-98.0); Mean Platelet Volume 9.1 fL (9.4-12.3); Monocytes Absolute Auto 0.5 X10*3/uL (0.1-1.2); Monocytes Percent Auto 4.9 % (2-11); Neut%MD 53.1 %; Neutrophils Percent Auto 53.1 % (45-73); Platelet Count 219 X10*3/uL (160-400); Red Blood Count 4.42 X10*6/uL (4.20-5.50); Red Cell Distribution Width 12.5 % (11.0-16.0); WBCANC 9.5 X10*3/uL; White Blood Count 9.5 X10*3/uL (4.8-10.8)
== END 2023-03-21 12:05 | disposition home or self-care (01) ==
LOC: HO.LABR 12:04
PROVIDERS: Visit Provider Clinical Nurse Specialist Psychiatric/Mental Health, Adult
DX: Z79.899 Other long term (current) drug therapy (principal)
CPT/HCPCS: 36415; 85025

== ENCOUNTER 2023-05-02 16:21 | Outpatient (REF) | payer OTHER, SELFPAY ==
[2023-05-02 16:36] LABS: MANUAL DIFF FLAG NO
[2023-05-02 17:15] LABS: Basophils Absolute Auto 0.1 X10*3/uL (0.0-0.2); Basophils Percent Auto 0.7 % (0-2); Eosinophils Absolute Auto 0.3 X10*3/uL (0.0-0.4); Eosinophils Percent Auto 3.6 % (0-4); Hematocrit 41.7 % (37.0-47.0); Hemoglobin 13.5 g/dl (12.0-16.0); Imm Gran Abs Auto 0.03 X10*3/uL (0.00-0.03); Imm Gran Pct Auto 0.4 % (0.0-0.4); Lymphocytes Percent Auto 35.9 % (20-40); Mean Corpuscular HGB Conc 32.4 g/dl (31.0-35.0); Mean Corpuscular Volume 92.7 fL (80.0-98.0); Mean Platelet Volume 9.9 fL (9.4-12.3); Monocytes Absolute Auto 0.4 X10*3/uL (0.1-1.2); Monocytes Percent Auto 5.2 % (2-11); Neut%MD 54.2 %; Neutrophils Absolute Auto 4.6 x10*3/uL (2.0-8.3); Neutrophils Percent Auto 54.2 % (45-73); Platelet Count 230 X10*3/uL (160-400); Red Cell Distribution Width 12.6 % (11.0-16.0); WBCANC 8.4 X10*3/uL; White Blood Count 8.4 X10*3/uL (4.8-10.8)
== END 2023-05-02 16:22 | disposition home or self-care (01) ==
LOC: HO.LABR 16:21
PROVIDERS: Visit Provider Clinical Nurse Specialist Psychiatric/Mental Health, Adult
DX: Z79.899 Other long term (current) drug therapy (principal)
CPT/HCPCS: 36415; 85025

== ENCOUNTER 2023-05-30 11:56 | Outpatient (REF) | payer OTHER, SELFPAY ==
[2023-05-30 12:23] LABS: MANUAL DIFF FLAG NO
[2023-05-30 13:28] LABS: Basophils Absolute Auto 0.1 X10*3/uL (0.0-0.2); Basophils Percent Auto 0.8 % (0-2); Eosinophils Absolute Auto 0.3 X10*3/uL (0.0-0.4); Eosinophils Percent Auto 4.1 % (0-4); Hemoglobin 13.6 g/dl (12.0-16.0); Imm Gran Abs Auto 0.04 X10*3/uL (0.00-0.03); Imm Gran Pct Auto 0.5 % (0.0-0.4); Lymphocytes Absolute Auto 2.4 X10*3/uL (1.2-4.9); Lymphocytes Percent Auto 31.5 % (20-40); Mean Corpuscular HGB Conc 32.4 g/dl (31.0-35.0); Mean Corpuscular Hemoglobin 30.4 pg (27.0-33.0); Mean Corpuscular Volume 93.8 fL (80.0-98.0); Mean Platelet Volume 9.6 fL (9.4-12.3); Monocytes Absolute Auto 0.5 X10*3/uL (0.1-1.2); Monocytes Percent Auto 6.3 % (2-11); Neut%MD 56.8 %; Neutrophils Absolute Auto 4.3 x10*3/uL (2.0-8.3); Neutrophils Percent Auto 56.8 % (45-73); Platelet Count 291 X10*3/uL (160-400); Red Blood Count 4.48 X10*6/uL (4.20-5.50); Red Cell Distribution Width 12.9 % (11.0-16.0); WBCANC 7.6 X10*3/uL; White Blood Count 7.6 X10*3/uL (4.8-10.8)
== END 2023-05-30 11:57 | disposition home or self-care (01) ==
LOC: HO.LABR 11:56
PROVIDERS: Visit Provider Clinical Nurse Specialist Psychiatric/Mental Health, Adult
DX: Z79.899 Other long term (current) drug therapy (principal)
CPT/HCPCS: 36415; 85025

== ENCOUNTER 2023-07-02 13:49 | Outpatient (REF) | payer OTHER, SELFPAY ==
[2023-07-02 14:01] LABS: MANUAL DIFF FLAG NO
[2023-07-02 14:37] LABS: Basophils Absolute Auto 0.1 X10*3/uL (0.0-0.2); Basophils Percent Auto 0.6 % (0-2); Eosinophils Absolute Auto 0.3 X10*3/uL (0.0-0.4); Eosinophils Percent Auto 3.6 % (0-4); Hematocrit 42.7 % (37.0-47.0); Hemoglobin 13.8 g/dl (12.0-16.0); Imm Gran Abs Auto 0.03 X10*3/uL (0.00-0.03); Imm Gran Pct Auto 0.4 % (0.0-0.4); Lymphocytes Absolute Auto 2.3 X10*3/uL (1.2-4.9); Lymphocytes Percent Auto 27.8 % (20-40); Mean Corpuscular HGB Conc 32.3 g/dl (31.0-35.0); Mean Corpuscular Volume 92.8 fL (80.0-98.0); Mean Platelet Volume 9.2 fL (9.4-12.3); Monocytes Absolute Auto 0.5 X10*3/uL (0.1-1.2); Monocytes Percent Auto 5.4 % (2-11); Neutrophils Absolute Auto 5.2 x10*3/uL (2.0-8.3); Neutrophils Percent Auto 62.2 % (45-73); Platelet Count 275 X10*3/uL (160-400); Red Cell Distribution Width 12.6 % (11.0-16.0); White Blood Count 8.3 X10*3/uL (4.8-10.8)
[2023-07-02 15:04] LABS: Lithium 0.62 mmol/L (0.60-1.20)
[2023-07-02 15:09] LABS: Alanine Aminotransferase 13 U/L (0-31); Albumin Level 4.1 g/dL (3.5-5.0); Alkaline Phosphatase 83 U/L (39-117); Anion Gap 12 (12-20); Aspartate Amino Transferase 19 U/L (5-31); Bilirubin Total 0.2 mg/dL (0.0-1.0); Blood Urea Nitrogen 19 mg/dL (9-16); Calcium 9.8 mg/dL (8.4-10.2); Carbon Dioxide 29 mmol/L (22-29); Chloride 102 mmol/L (96-108); Estimated Glomerular Filt Rate > 60; Glucose Random 107 mg/dL (60-115); Potassium 4.2 mmol/L (3.3-5.1); Sodium 139 mmol/L (135-145); Total Protein 7.7 g/dL (6.5-8.0)
[2023-07-02 15:13] LABS: Valproate 37.2 mcg/mL (50.0-100.0)
== END 2023-07-02 13:50 | disposition home or self-care (01) ==
LOC: HO.LABR 13:49
PROVIDERS: Visit Provider Clinical Nurse Specialist Psychiatric/Mental Health, Adult
DX: Z79.899 Other long term (current) drug therapy (principal)
CPT/HCPCS: 36415; 80053; 80164; 80178; 84443; 85025

== ENCOUNTER 2023-07-30 13:44 | Outpatient (REF) | payer OTHER, SELFPAY ==
[2023-07-30 14:01] LABS: MANUAL DIFF FLAG NO
[2023-07-30 14:38] LABS: Basophils Absolute Auto 0.1 X10*3/uL (0.0-0.2); Basophils Percent Auto 0.6 % (0-2); Eosinophils Absolute Auto 0.3 X10*3/uL (0.0-0.4); Eosinophils Percent Auto 3.5 % (0-4); Hematocrit 40.4 % (37.0-47.0); Hemoglobin 13.4 g/dl (12.0-16.0); Imm Gran Abs Auto 0.06 X10*3/uL (0.00-0.03); Imm Gran Pct Auto 0.7 % (0.0-0.4); Lymphocytes Absolute Auto 2.5 X10*3/uL (1.2-4.9); Lymphocytes Percent Auto 27.6 % (20-40); Mean Corpuscular HGB Conc 33.2 g/dl (31.0-35.0); Mean Corpuscular Volume 93.5 fL (80.0-98.0); Mean Platelet Volume 9.1 fL (9.4-12.3); Monocytes Absolute Auto 0.5 X10*3/uL (0.1-1.2); Neutrophils Absolute Auto 5.5 x10*3/uL (2.0-8.3); Neutrophils Percent Auto 61.6 % (45-73); Platelet Count 248 X10*3/uL (160-400); Red Blood Count 4.32 X10*6/uL (4.20-5.50); Red Cell Distribution Width 12.6 % (11.0-16.0); White Blood Count 8.9 X10*3/uL (4.8-10.8)
== END 2023-07-30 13:45 | disposition home or self-care (01) ==
LOC: HO.LAB 13:44
PROVIDERS: PCP Internal Medicine; Visit Provider Clinical Nurse Specialist Psychiatric/Mental Health, Adult
DX: Z79.899 Other long term (current) drug therapy (principal)
CPT/HCPCS: 36415; 85025

== ENCOUNTER 2023-08-23 11:51 | Outpatient (REF) | payer OTHER, SELFPAY ==
[2023-08-23 12:10] LABS: MANUAL DIFF FLAG NO
[2023-08-23 12:53] LABS: Basophils Absolute Auto 0.1 X10*3/uL (0.0-0.2); Basophils Percent Auto 0.6 % (0-2); Eosinophils Absolute Auto 0.4 X10*3/uL (0.0-0.4); Eosinophils Percent Auto 4.3 % (0-4); Hematocrit 42.5 % (37.0-47.0); Hemoglobin 13.6 g/dl (12.0-16.0); Imm Gran Abs Auto 0.03 X10*3/uL (0.00-0.03); Imm Gran Pct Auto 0.3 % (0.0-0.4); Lymphocytes Absolute Auto 2.9 X10*3/uL (1.2-4.9); Lymphocytes Percent Auto 32.8 % (20-40); Mean Corpuscular Hemoglobin 30.5 pg (27.0-33.0); Mean Corpuscular Volume 95.3 fL (80.0-98.0); Mean Platelet Volume 9.3 fL (9.4-12.3); Monocytes Absolute Auto 0.4 X10*3/uL (0.1-1.2); Monocytes Percent Auto 4.8 % (2-11); Neutrophils Absolute Auto 5.1 x10*3/uL (2.0-8.3); Neutrophils Percent Auto 57.2 % (45-73); Platelet Count 241 X10*3/uL (160-400); Red Blood Count 4.46 X10*6/uL (4.20-5.50); White Blood Count 8.9 X10*3/uL (4.8-10.8)
== END 2023-08-23 11:52 | disposition home or self-care (01) ==
LOC: HO.LABR 11:51
PROVIDERS: Visit Provider Clinical Nurse Specialist Psychiatric/Mental Health, Adult
DX: Z79.899 Other long term (current) drug therapy (principal)
CPT/HCPCS: 36415; 85025

== ENCOUNTER 2023-09-03 15:15 | Outpatient (REF) | payer OTHER, SELFPAY ==
[2023-09-03 15:35] LABS: MANUAL DIFF FLAG NO
[2023-09-03 16:22] LABS: Basophils Absolute Auto 0.1 X10*3/uL (0.0-0.2); Basophils Percent Auto 0.6 % (0-2); Eosinophils Absolute Auto 0.4 X10*3/uL (0.0-0.4); Eosinophils Percent Auto 3.6 % (0-4); Hematocrit 42.6 % (37.0-47.0); Imm Gran Abs Auto 0.05 X10*3/uL (0.00-0.03); Imm Gran Pct Auto 0.5 % (0.0-0.4); Lymphocytes Absolute Auto 2.9 X10*3/uL (1.2-4.9); Lymphocytes Percent Auto 29.2 % (20-40); Mean Corpuscular HGB Conc 32.9 g/dl (31.0-35.0); Mean Corpuscular Hemoglobin 30.5 pg (27.0-33.0); Mean Corpuscular Volume 92.8 fL (80.0-98.0); Mean Platelet Volume 9.2 fL (9.4-12.3); Monocytes Absolute Auto 0.5 X10*3/uL (0.1-1.2); Monocytes Percent Auto 5.3 % (2-11); Neut%MD 60.8 %; Neutrophils Absolute Auto 6.1 x10*3/uL (2.0-8.3); Neutrophils Percent Auto 60.8 % (45-73); Platelet Count 264 X10*3/uL (160-400); Red Blood Count 4.59 X10*6/uL (4.20-5.50); Red Cell Distribution Width 12.8 % (11.0-16.0); WBCANC 10.1 X10*3/uL; White Blood Count 10.1 X10*3/uL (4.8-10.8)
== END 2023-09-03 15:16 | disposition home or self-care (01) ==
LOC: HO.LABR 15:15
PROVIDERS: PCP Internal Medicine; Visit Provider Clinical Nurse Specialist Psychiatric/Mental Health, Adult
DX: Z79.899 Other long term (current) drug therapy (principal)
CPT/HCPCS: 36415; 85025

== ENCOUNTER 2023-10-04 09:32 | Outpatient (REF) | payer OTHER, SELFPAY ==
[2023-10-04 09:44] LABS: MANUAL DIFF FLAG NO
[2023-10-04 09:59] LABS: Basophils Absolute Auto 0.1 X10*3/uL (0.0-0.2); Basophils Percent Auto 0.7 % (0-2); Eosinophils Absolute Auto 0.3 X10*3/uL (0.0-0.4); Eosinophils Percent Auto 3.5 % (0-4); Hematocrit 40.3 % (37.0-47.0); Hemoglobin 13.3 g/dl (12.0-16.0); Imm Gran Abs Auto 0.03 X10*3/uL (0.00-0.03); Imm Gran Pct Auto 0.4 % (0.0-0.4); Lymphocytes Percent Auto 26.8 % (20-40); Mean Corpuscular Hemoglobin 30.6 pg (27.0-33.0); Mean Corpuscular Volume 92.6 fL (80.0-98.0); Mean Platelet Volume 8.9 fL (9.4-12.3); Monocytes Absolute Auto 0.4 X10*3/uL (0.1-1.2); Neutrophils Absolute Auto 4.7 x10*3/uL (2.0-8.3); Neutrophils Percent Auto 63.6 % (45-73); Platelet Count 224 X10*3/uL (160-400); Red Blood Count 4.35 X10*6/uL (4.20-5.50); Red Cell Distribution Width 12.6 % (11.0-16.0); White Blood Count 7.4 X10*3/uL (4.8-10.8)
== END 2023-10-04 09:33 | disposition home or self-care (01) ==
LOC: HO.LABR 09:32
PROVIDERS: PCP Physician Assistant Medical; Visit Provider Clinical Nurse Specialist Psychiatric/Mental Health, Adult
DX: Z79.899 Other long term (current) drug therapy (principal)
CPT/HCPCS: 36415; 85025

== ENCOUNTER 2023-10-30 13:34 | Outpatient (REF) | payer OTHER, SELFPAY ==
[2023-10-30 13:49] LABS: MANUAL DIFF FLAG NO
[2023-10-30 14:00] LABS: Basophils Absolute Auto 0.1 X10*3/uL (0.0-0.2); Basophils Percent Auto 0.6 % (0-2); Eosinophils Absolute Auto 0.2 X10*3/uL (0.0-0.4); Eosinophils Percent Auto 2.8 % (0-4); Hematocrit 42.3 % (37.0-47.0); Imm Gran Abs Auto 0.03 X10*3/uL (0.00-0.03); Imm Gran Pct Auto 0.4 % (0.0-0.4); Lymphocytes Absolute Auto 2.5 X10*3/uL (1.2-4.9); Lymphocytes Percent Auto 30.8 % (20-40); Mean Corpuscular HGB Conc 33.1 g/dl (31.0-35.0); Mean Corpuscular Hemoglobin 30.8 pg (27.0-33.0); Mean Corpuscular Volume 93.2 fL (80.0-98.0); Mean Platelet Volume 8.8 fL (9.4-12.3); Monocytes Absolute Auto 0.5 X10*3/uL (0.1-1.2); Monocytes Percent Auto 5.8 % (2-11); Neutrophils Absolute Auto 4.8 x10*3/uL (2.0-8.3); Neutrophils Percent Auto 59.6 % (45-73); Platelet Count 266 X10*3/uL (160-400); Red Blood Count 4.54 X10*6/uL (4.20-5.50); Red Cell Distribution Width 12.5 % (11.0-16.0); White Blood Count 8.1 X10*3/uL (4.8-10.8)
== END 2023-10-30 13:35 | disposition home or self-care (01) ==
LOC: HO.LABR 13:34
PROVIDERS: PCP Physician Assistant Medical; Visit Provider Clinical Nurse Specialist Psychiatric/Mental Health, Adult
DX: Z79.899 Other long term (current) drug therapy (principal)
CPT/HCPCS: 36415; 85025

== ENCOUNTER 2023-11-29 09:33 | Outpatient (REF) | payer OTHER, SELFPAY ==
[2023-11-29 09:45] LABS: MANUAL DIFF FLAG NO
[2023-11-29 10:17] LABS: Basophils Absolute Auto 0.1 X10*3/uL (0.0-0.2); Basophils Percent Auto 0.6 % (0-2); Eosinophils Absolute Auto 0.3 X10*3/uL (0.0-0.4); Hematocrit 41.7 % (37.0-47.0); Hemoglobin 13.5 g/dl (12.0-16.0); Imm Gran Abs Auto 0.02 X10*3/uL (0.00-0.03); Imm Gran Pct Auto 0.3 % (0.0-0.4); Lymphocytes Absolute Auto 2.2 X10*3/uL (1.2-4.9); Lymphocytes Percent Auto 26.9 % (20-40); Mean Corpuscular HGB Conc 32.4 g/dl (31.0-35.0); Mean Corpuscular Hemoglobin 30.1 pg (27.0-33.0); Mean Corpuscular Volume 92.9 fL (80.0-98.0); Mean Platelet Volume 9.1 fL (9.4-12.3); Monocytes Absolute Auto 0.4 X10*3/uL (0.1-1.2); Monocytes Percent Auto 5.3 % (2-11); Neutrophils Percent Auto 62.9 % (45-73); Platelet Count 244 X10*3/uL (160-400); Red Blood Count 4.49 X10*6/uL (4.20-5.50); Red Cell Distribution Width 12.4 % (11.0-16.0)
== END 2023-11-29 09:34 | disposition home or self-care (01) ==
LOC: HO.LABR 09:33
PROVIDERS: PCP Physician Assistant Medical; Visit Provider Clinical Nurse Specialist Psychiatric/Mental Health, Adult
DX: Z79.899 Other long term (current) drug therapy (principal)
CPT/HCPCS: 36415; 85025

== ENCOUNTER 2024-01-02 13:32 | Outpatient (REF) | payer OTHER, SELFPAY ==
[2024-01-02 13:50] LABS: MANUAL DIFF FLAG NO
[2024-01-02 13:59] LABS: Basophils Absolute Auto 0.1 X10*3/uL (0.0-0.2); Basophils Percent Auto 0.5 % (0-2); Eosinophils Absolute Auto 0.3 X10*3/uL (0.0-0.4); Eosinophils Percent Auto 2.4 % (0-4); Hematocrit 40.1 % (37.0-47.0); Hemoglobin 13.1 g/dl (12.0-16.0); Imm Gran Abs Auto 0.04 X10*3/uL (0.00-0.03); Imm Gran Pct Auto 0.4 % (0.0-0.4); Lymphocytes Absolute Auto 2.4 X10*3/uL (1.2-4.9); Lymphocytes Percent Auto 22.1 % (20-40); Mean Corpuscular HGB Conc 32.7 g/dl (31.0-35.0); Mean Corpuscular Hemoglobin 30.3 pg (27.0-33.0); Mean Corpuscular Volume 92.6 fL (80.0-98.0); Mean Platelet Volume 8.7 fL (9.4-12.3); Monocytes Absolute Auto 0.7 X10*3/uL (0.1-1.2); Monocytes Percent Auto 6.8 % (2-11); Neutrophils Absolute Auto 7.2 x10*3/uL (2.0-8.3); Neutrophils Percent Auto 67.8 % (45-73); Platelet Count 271 X10*3/uL (160-400); Red Blood Count 4.33 X10*6/uL (4.20-5.50); Red Cell Distribution Width 12.8 % (11.0-16.0); White Blood Count 10.7 X10*3/uL (4.8-10.8)
== END 2024-01-02 13:33 | disposition home or self-care (01) ==
LOC: HO.LAB 13:32
PROVIDERS: PCP Internal Medicine; Visit Provider Clinical Nurse Specialist Psychiatric/Mental Health, Adult
DX: Z79.899 Other long term (current) drug therapy (principal)
CPT/HCPCS: 36415; 85025

== ENCOUNTER 2024-02-04 13:03 | Outpatient (REF) | payer OTHER, SELFPAY ==
[2024-02-04 13:17] LABS: MANUAL DIFF FLAG NO
[2024-02-04 13:47] LABS: Basophils Absolute Auto 0.1 X10*3/uL (0.0-0.2); Basophils Percent Auto 0.7 % (0-2); Eosinophils Absolute Auto 0.3 X10*3/uL (0.0-0.4); Eosinophils Percent Auto 3.7 % (0-4); Hematocrit 40.9 % (37.0-47.0); Hemoglobin 13.2 g/dl (12.0-16.0); Imm Gran Abs Auto 0.02 X10*3/uL (0.00-0.03); Imm Gran Pct Auto 0.3 % (0.0-0.4); Lymphocytes Absolute Auto 2.3 X10*3/uL (1.2-4.9); Lymphocytes Percent Auto 31.2 % (20-40); Mean Corpuscular HGB Conc 32.3 g/dl (31.0-35.0); Mean Corpuscular Hemoglobin 30.1 pg (27.0-33.0); Mean Corpuscular Volume 93.2 fL (80.0-98.0); Mean Platelet Volume 9.3 fL (9.4-12.3); Monocytes Absolute Auto 0.4 X10*3/uL (0.1-1.2); Monocytes Percent Auto 5.8 % (2-11); Neutrophils Absolute Auto 4.3 x10*3/uL (2.0-8.3); Neutrophils Percent Auto 58.3 % (45-73); Platelet Count 243 X10*3/uL (160-400); Red Blood Count 4.39 X10*6/uL (4.20-5.50); White Blood Count 7.3 X10*3/uL (4.8-10.8)
== END 2024-02-04 13:04 | disposition home or self-care (01) ==
LOC: HO.LABR 13:03
PROVIDERS: Visit Provider Clinical Nurse Specialist Psychiatric/Mental Health, Adult
DX: Z79.899 Other long term (current) drug therapy (principal)
CPT/HCPCS: 36415; 85025

== ENCOUNTER 2024-03-03 15:39 | Outpatient (REF) | payer OTHER, SELFPAY ==
[2024-03-03 15:56] LABS: MANUAL DIFF FLAG NO
[2024-03-03 17:13] LABS: Basophils Absolute Auto 0.1 X10*3/uL (0.0-0.2); Basophils Percent Auto 0.7 % (0-2); Eosinophils Absolute Auto 0.3 X10*3/uL (0.0-0.4); Eosinophils Percent Auto 3.2 % (0-4); Hemoglobin 12.8 g/dl (12.0-16.0); Imm Gran Abs Auto 0.03 X10*3/uL (0.00-0.03); Imm Gran Pct Auto 0.3 % (0.0-0.4); Lymphocytes Absolute Auto 3.3 X10*3/uL (1.2-4.9); Lymphocytes Percent Auto 32.1 % (20-40); Mean Corpuscular Hemoglobin 29.8 pg (27.0-33.0); Mean Platelet Volume 9.5 fL (9.4-12.3); Monocytes Absolute Auto 0.5 X10*3/uL (0.1-1.2); Monocytes Percent Auto 5.2 % (2-11); Neut%MD 58.5 %; Neutrophils Absolute Auto 6.1 x10*3/uL (2.0-8.3); Neutrophils Percent Auto 58.5 % (45-73); Platelet Count 265 X10*3/uL (160-400); Red Cell Distribution Width 12.8 % (11.0-16.0); WBCANC 10.4 X10*3/uL; White Blood Count 10.4 X10*3/uL (4.8-10.8)
== END 2024-03-03 15:40 | disposition home or self-care (01) ==
LOC: HO.LABR 15:39
PROVIDERS: PCP Internal Medicine; Visit Provider Clinical Nurse Specialist Psychiatric/Mental Health, Adult
DX: Z79.899 Other long term (current) drug therapy (principal)
CPT/HCPCS: 36415; 85025

== ENCOUNTER 2024-04-10 11:02 | Outpatient (REF) | payer OTHER, SELFPAY ==
[2024-04-10 11:15] LABS: MANUAL DIFF FLAG NO
[2024-04-10 11:41] LABS: Basophils Absolute Auto 0.1 X10*3/uL (0.0-0.2); Basophils Percent Auto 0.5 % (0-2); Eosinophils Absolute Auto 0.3 X10*3/uL (0.0-0.4); Eosinophils Percent Auto 2.6 % (0-4); Hematocrit 42.2 % (37.0-47.0); Hemoglobin 13.6 g/dl (12.0-16.0); Imm Gran Abs Auto 0.04 X10*3/uL (0.00-0.03); Imm Gran Pct Auto 0.4 % (0.0-0.4); Lymphocytes Absolute Auto 2.4 X10*3/uL (1.2-4.9); Lymphocytes Percent Auto 24.2 % (20-40); Mean Corpuscular HGB Conc 32.2 g/dl (31.0-35.0); Mean Corpuscular Hemoglobin 29.9 pg (27.0-33.0); Mean Corpuscular Volume 92.7 fL (80.0-98.0); Mean Platelet Volume 9.1 fL (9.4-12.3); Monocytes Absolute Auto 0.6 X10*3/uL (0.1-1.2); Monocytes Percent Auto 5.7 % (2-11); Neutrophils Absolute Auto 6.6 x10*3/uL (2.0-8.3); Neutrophils Percent Auto 66.6 % (45-73); Platelet Count 275 X10*3/uL (160-400); Red Blood Count 4.55 X10*6/uL (4.20-5.50); Red Cell Distribution Width 13.1 % (11.0-16.0)
--- OUTSIDE RECORDS SUMMARY | 2024-04-10 12:53 | XMS_ITS | Clinical Summary ---
Author Organization Unknown Care Team Providers Care Guitar Technician Name Role Phone CHAZ DEL RIO, MADI Unavailable Unavailable KATHIE LIMA, AMY Unavailable Unavailable OTONIEL LIMA, YAHAIRA Unavailable Unavailable Payers Payer Name Policy Type Policy Number Effective Date Expira tion Date [facility] [id number] [place] [id number] Problems Condition Name Condition Details Condition Category Status Onset Date Resolution Date Last Treatment Date Treating Clinician Comments SCHIZOAFFECT JEET DISORDER, BIPOLAR TYPE Active 11-07 00:00: 00 POST-TRAUMAT IC STRESS DISORDER, UNSPECIFIED Active 11-07 00:00: 00 ESSENTIAL (PRIMARY) HYPERTENSION Active 04-08 00:00: 00 NICOTINE DEPENDENCE, UNSPECIFIED, UNCOMPLICATE D Active 04-08 00:00: 00 GASTRO-ESOPH AGEAL REFLUX DISEASE WITHOUT ESOPHAGITIS Active 04-08 00:00: 00 PERSONAL HISTORY OF MALIGNANT NEOPLASM OF BREAST Active 04-08 00:00: 00 Allergies, Adverse Reactions, Alerts Allergy Name Allergy Type Status Severity Reaction(s) Onset Date Inactive Date Treating Clinician Comments SEROQUEL Propensity to adverse reactions Active 2018-07 20:44:2 0 LAMICTAL Propensity to adverse reactions Active 2018-07 20:44:3 3 Medications Ordered Medication Name Filled Medication Name Start Date Stop Date Current Medication? Ordering Clinician Indication Dosage Frequency Signature (SIG) Comments Components Arimidex 1 mg tablet 07-09 00:00: 00 Yes [id number] 1 tablet EVERY AM 1 tablet EVERY AM (route: oral) Med Classific ation: Antineopl astics carvedilol 12.5 mg tablet 07-09 00:00: 00 Yes [id number] 1 tablet Twice a day 1 tablet Twice a day (route: oral) Med Classific ation: Cardiovas cular Therapy Agents clonazepam 1 mg tablet 06-06 00:00: 00 Yes [id number] 1 tablet TWICE A DAY DAILY 1 tablet TWICE A DAY DAILY (route: oral) Alternate Route: BY MOUTH. Med Classific ation: Central Nervous System Agents clonazepam 1 mg tablet 07-09 00:00: 00 08-13 23:59 :00 No [id number] 1 tablet PRN 1 tablet PRN (route: oral) Med Classific ation: Central Nervous System Agents clozapine 100 mg tablet 05-13 00:00: 00 Yes [id number] 3 tablet AT BEDTIME 3 tablet AT BEDTIME (route: oral) Alternate Route: BY MOUTH. Med Classific ation: Central Nervous System Agents desmopressi n 0.2 mg tablet 05-21 00:00: 00 03-07 23:59 :00 No [id number] 2 tablet AT BEDTIME 2 tablet AT BEDTIME (route: oral) Alternate Route: BY MOUTH. Med Classific ation: Endocrine Depakote 500 mg tablet,pedro luis yed release 05-21 00:00: 00 Yes [id number] 1 tablet TWICE A DAY 1 tablet TWICE A DAY (route: oral) Alternate Route: BY MOUTH. Med Classific ation: Central Nervous System Agents lisinopril 2.5 mg tablet 07-09 00:00: 00 Yes [id number] 1 tablet EVERY AM 1 tablet EVERY AM (route: oral) Med Classific ation: Cardiovas cular Therapy Agents lithium carbonate 300 mg capsule 07-09 00:00: 00 Yes [id number] 1 capsule EVERY AM 1 capsule EVERY AM (route: oral) Med Classific ation: Central Nervous System Agents lithium carbonate 300 mg capsule 07-09 00:00: 00 Yes [id number] 2 capsule EVERY PM 2 capsule EVERY PM (route: oral) Med Classific ation: Central Nervous System Agents omeprazole 20 mg capsule,del ayed release 07-09 00:00: 00 Yes [id number] 1 capsule EVERY AM 1 capsule EVERY AM (route: oral) Med Classific ation: Gastroint estinal Therapy Agents oxybutynin chloride 5 mg tablet 07-09 00:00: 00 Yes [id number] 2 tablet EVERY PM 2 tablet EVERY PM (route: oral) Med Classific ation: Genitouri nary Therapy Vitamin D3 25 mcg (1,000 unit) capsule 09-03 00:00: 00 Yes [id number] 1 mcg EVERY AM 1 mcg EVERY AM (route: oral) Med Classific ation: Electroly te Balance-N utritiona l Products doxycycline hyclate 100 mg capsule 12-01 00:00: 00 01-04 23:59 :00 No [id number] 1 capsule 2 TIMES DAILY 1 capsule 2 TIMES DAILY (route: oral) Med Classific ation: Anti-Infe ctive Agents cephalexin 500 mg capsule 11-02 00:00: 00 11-05 23:59 :00 No [id number] 1 capsule 4 TIMES DAILY 1 capsule 4 TIMES DAILY (route: oral) Med Classific ation: Anti-Infe ctive Agents desmopressi n 0.2 mg tablet 2021-04 00:00: 00 Yes [id number] 3 tablet BEDTIME 3 tablet BEDTIME (route: oral) Med Classific ation: Endocrine Immunizations Ordered Immunization Name Filled Immunization Name Date Status Comments Refusal Reason INFLUENZA, TIV (INACTIVATED) 2018-04-08 00:00:00 PNEUMOCOCCAL (PPV), PPV 2018-04-08 00:00:00 Plan of Treatment Planned Activity Planned Date Details Comments Future Scheduled Test SKILLED NU RSE TO EVALUATE PATIENT, IDENTIFY PRIMARY AND CO-MORBID CONDITIONS CODED PER CODING GUIDELINES, AND DEVELOP PATIENT SPECIFIC PLAN OF CARE THAT INCLUDES PATIENT GOAL FOR HOME HEALTH. [code = SKILLED NURSE TO EVALUATE PATIENT, IDENTIFY PRIMARY AND CO-MORBID CONDITIONS CODED PER CODING GUIDELINES, AND DEVELOP PATIENT SPECIFIC PLAN OF CARE THAT INCLUDES PATIENT GOAL FOR HOME HEALTH.] Future Scheduled Test SKILLED NU RSE TO O/A OF PATIENTS MENTAL/BEHAVIORAL STATUS, ASSESS VITAL SIGNS NEEDED OR REQUESTED, ALLOW 2 PRNS FOR MEDICATION MANAGEMENT. [code = SKILLED NURSE TO O/A OF PATIENTS MENTAL/BEHAVIORAL STATUS, ASSESS VITAL SIGNS NEEDED OR REQUESTED, ALLOW 2 PRNS FOR MEDICATION MANAGEMENT.] Future Scheduled Test SKILLED NU RSE WILL MAINTAIN SITUATIONAL AWARENESS FOR SAFETY AND WILL NOTIFY CLINICAL BOAT DOCK OPERATOR AND PHYSICIAN/PROVIDER WITH ANY CHANGE IN CONDITION. [code = SKILLED NURSE WILL MAINTAIN SITUATIONAL AWARENESS FOR SAFETY AND WILL NOTIFY CLINICAL BOAT DOCK OPERATOR AND PHYSICIAN/PROVIDER WITH ANY CHANGE IN CONDITION.] Future Scheduled Test SKILLED NU RSE TO PRE-POUR MEDICATION PER MEDICATION LIST WEEKLY. [code = SKILLED NURSE TO PRE-POUR MEDICATION PER MEDICATION LIST WEEKLY.] Future Scheduled Test SKILLED NU RSE FOR O/A AND SKILLED TEACHING OF COPING SKILLS TO MANAGE ANXIETY AND MAINTAIN SAFETY. [code = SKILLED NURSE FOR O/A AND SKILLED TEACHING OF COPING SKILLS TO MANAGE ANXIETY AND MAINTAIN SAFETY.] Future Scheduled Test SKILLED NU RSE FOR O/A OF ALTERED THOUGHT PROCESS AND/OR DISRUPTION IN COGNITIVE OPERATIONS AND ACTIVITIES. [code = SKILLED NURSE FOR O/A OF ALTERED THOUGHT PROCESS AND/OR DISRUPTION IN COGNITIVE OPERATIONS AND ACTIVITIES.] Future Scheduled Test SKILLED NU RSE TO ASSESS PATIENTS PSYCHOSOCIAL STATUS TO IDENTIFY POTENTIAL ISSUES THAT MAY COMPLICATE THE PROVISION OF THE PLAN OF CARE INCLUDING THE PATIENTS ABILITY TO ACCESS COMMUNITY RESOURCES AND PSYCHOSOCIAL SUPPORT SERVICES. [code = SKILLED NURSE TO ASSESS PATIENTS PSYCHOSOCIAL STATUS TO IDENTIFY POTENTIAL ISSUES THAT MAY COMPLICATE THE PROVISION OF THE PLAN OF CARE INCLUDING THE PATIENTS ABILITY TO ACCESS COMMUNITY RESOURCES AND PSYCHOSOCIAL SUPPORT SERVICES.] Future Scheduled Test SKILLED NU RSE FOR O/A OF CLIENT'S SOCIAL ISOLATION AND PROVIDE ASSISTANCE TO CLIENT IN DEVELOPMENT OF PLANNED ACTIVITIES [code = SKILLED NURSE FOR O/A OF CLIENT'S SOCIAL ISOLATION AND PROVIDE ASSISTANCE TO CLIENT IN DEVELOPMENT OF PLANNED ACTIVITIES] Future Scheduled Test MEDICATION S WILL BE HELD AND STORED IN LOCKBOX [code = MEDICATIONS WILL BE HELD AND STORED IN LOCKBOX] Future Scheduled Test SKILLED NU RSE MAY PICKUP AND TRANSPORT MEDICATIONS [code = SKILLED NURSE MAY PICKUP AND TRANSPORT MEDICATIONS] Goal Patient Goal - T O EXERCISE MORE AND DECREASE MY NEED FOR MEDICATION. Goal 2018-11-07 Patient Goal - TAKE LESS MED ICATION Goal 2018-09-10 Patient Goal - TAKE LESS MED ICATION Goal 2019-01-07 Patient Goal - TAKE LESS MED ICATION Goal 2019-03-06 Patient Goal - TAKE LESS MED ICATION Goal 2019-05-06 Patient Goal - TAKE LESS MED ICATION Goal 2019-07-08 Patient Goal - TAKE LESS MED ICATION Goal 2019-09-02 Patient Goal - TAKE LESS MED ICATION Goal 2019-11-04 Patient Goal - TAKE LESS MED ICATION Goal 2019-12-31 Patient Goal - TAKE LESS MED ICATION Goal 2020-02-29 Patient Goal - TAKE LESS MED ICATION Goal 2020-04-29 Patient Goal - TAKE LESS MED ICATION Goal 2020-06-30 Patient Goal - TAKE LESS MED ICATION Goal 2020-08-31 Patient Goal - TAKE LESS MED ICATION Goal 2020-10-27 Patient Goal - T O EXERCISE MORE AND DECREASE MY NEED FOR MEDICATION. Goal 2020-12-29 Patient Goal - T O EXERCISE MORE AND DECREASE MY NEED FOR MEDICATION. Goal 2021-02-23 Patient Goal - T O EXERCISE MORE AND DECREASE MY NEED FOR MEDICATION. Goal 2021-04-27 Patient Goal - T O EXERCISE MORE AND DECREASE MY NEED FOR MEDICATION. Goal 2021-06-23 Patient Goal - T O EXERCISE MORE AND DECREASE MY NEED FOR MEDICATION. Goal 2021-08-24 Patient Goal - T O EXERCISE MORE AND DECREASE MY NEED FOR MEDICATION. Goal 2021-10-24 Patient Goal - T O EXERCISE MORE AND DECREASE MY NEED FOR MEDICATION. Goal 2021-12-21 Patient Goal - T O EXERCISE MORE AND DECREASE MY NEED FOR MEDICATION. Goal 2022-02-22 Patient Goal - T O EXERCISE MORE AND DECREASE MY NEED FOR MEDICATION. Goal 2022-04-19 Patient Goal - T O EXERCISE MORE AND DECREASE MY NEED FOR MEDICATION. Goal 2022-06-20 Patient Goal - T O EXERCISE MORE AND DECREASE MY NEED FOR MEDICATION. Goal 2022-08-20 Patient Goal - T O EXERCISE MORE AND DECREASE MY NEED FOR MEDICATION. Goal 2022-10-18 Patient Goal - T O EXERCISE MORE AND DECREASE MY NEED FOR MEDICATION. Goal 2022-12-17 Patient Goal - T O EXERCISE MORE AND DECREASE MY NEED FOR MEDICATION. Goal 2023-02-14 Patient Goal - T O EXERCISE MORE AND DECREASE MY NEED FOR MEDICATION. Goal 2023-04-18 Patient Goal - T O EXERCISE MORE AND DECREASE MY NEED FOR MEDICATION. Goal 2023-06-13 Patient Goal - T O EXERCISE MORE AND DECREASE MY NEED FOR MEDICATION. Goal 2023-08-15 Patient Goal - T O EXERCISE MORE AND DECREASE MY NEED FOR MEDICATION. Goal 2023-10-14 Patient Goal - T O EXERCISE MORE AND DECREASE MY NEED FOR MEDICATION. Goal 2023-12-12 Patient Goal - T O EXERCISE MORE AND DECREASE MY NEED FOR MEDICATION. Goal 2024-02-12 Patient Goal - T O EXERCISE MORE AND DECREASE MY NEED FOR MEDICATION. Goal 2024-04-09 Patient Goal - T O EXERCISE MORE AND DECREASE MY NEED FOR MEDICATION. Goal Provider Goal - A PLAN OF CARE WILL BE ESTABLISHED THAT MEETS PATIENT'S SENIOR CARE NEEDS AND INCLUDES PATIENT GOAL FOR HOME HEALTH. Goal Provider Goal - ALTERED MENTAL/BEHAVIORAL STATUS WILL BE IDENTIFIED PROMPTLY AND INTERVENTION INITIATED QUICKLY TO MINIMIZE ASSOCIATED RISKS THROUGHOUT CERTIFICATION PERIOD. Goal Provider Goal - PATIENT WILL REMAIN SAFE IN THE COMMUNITY AND WILL BE FREE OF DANGER TO SELF AND OTHERS THROUGHOUT THE CERTIFICATION PERIOD. Goal Provider Goal - PATIENT WILL COMPLY WITH MEDICATION WHEN SKILLED NURSE PRE-POURS MEDICATION THROUGHOUT CERTIFICATION PERIOD. Goal Provider Goal - PATIENT WILL BE ABLE TO PERFORM DAILY FUNCTIONS AND HAVE OPTIMAL IMPROVEMENT IN LEVEL OF ANXIETY THROUGHOUT CERTIFICATION PERIOD. Goal Provider Goal - PATIENT WILL BE ABLE TO PERFORM DAILY FUNCTIONS AND HAVE OPTIMAL IMPROVEMENT IN THOUGHT PROCESS THROUGHOUT CERTIFICATION PERIOD. Goal Provider Goal - PSYCHOSOCIAL NEEDS WILL BE IDENTIFIED AND PLAN IMPLEMENTED TO MINIMIZE RISK THROUGHOUT CERTIFICATION PERIOD. Goal Provider Goal - PATIENT WILL DEMONSTRATE AN INCREASED INTEREST IN SOCIALIZATION AND ACTIVITIES BY THE END OF THE CERTIFICATION PERIOD. Goal Provider Goal - MEDICATION WILL BE STORED IN LOCKBOX FOR SAFETY. Goal Provider Goal - SKILLED NURSE PICKED UP AND TRANSPORTED MEDICATIONS FOR SAFETY. Progress Notes Progress Notes <paragraph>[Visit Date: 2024 by AMY VÁZQUEZ RN]:</paragraph><paragraph>RECERTIFICATION VISIT FOR A 53 YEAR OLD FEMALE LIVING ALONE IN A LARGE APARTMENT [facility]. SHE RECENTLY WAS GIFTED A CAT BY HER SON AND SHE IS PLEASANTLY DISTRACTED BY HIS SHENANEGANS. SHE REPORTED GETTING THROUGH THE [place]OL[place], NOT STAYING UP TILL MIDNIGHT ON [place]. APARTMENT IS SPOTLESSLY CLEAN, TRASH IS TAKEN OUT, AND [place]BAL[place] IS CLEAN, DRESSED. SHE SITS ON COUCH WHILE USES COFFEE TABLE TO PREFILL HER MEDS - WE TALK ABOUT HER WEEK, WHATS COMING UP, REMINDED HER SHE NEEDS TO GET BLOODWORK THIS WEEK FOR CLOZARIL REFILL. SHE SEES SONS REGULARLY, LIKES THEIR GIRLFRIENDS AND DECLARES BEING NEW. SHE REPORTS NOT WATCHING THE EVENING NEWS ANYMORE IT WAS INTERUPTING HER SLEEP. [place] IS SENSITIVE TO SUFFERING AND SAID THE NEWS IS TO GRAPHIC FOR HER. SHE IS TRYING TO QUIT SMOKING, ALWAYS GOES OUTSIDE IF SHE HAS TO, BUT HAS CUT CONSUMPTION IN HALF ON HER OWN. SHE ATTENDS ALL APPOINTMENTS AND IS COMPLIANT WITH PREFILLED MED NATIONAL OPELINT ANALYST, EVIDENCED BY EMPTY NATIONAL OPELINT ANALYST EACH VISIT. SHE RARELY MISSES A DOSE. SHE HAS A FLAT AFFECT AND A SLOW LAZY WAY OF TALKING, LIKE SHES ABOUT TO FALL ASLEEP. SN 1W9 FOR ASSESSMENT OF MOOD, COPING, COMPLIANCE, HOME SAFETY, MED PREFILL, MENTAL HEALTH SUPPORT, POC.</paragraph> Encounters Start Date/Time End Date/Time Encounter Type Admission Type Attending [facility] Care Facility Care Department Encounter ID Discharge Date Discharge Status Discharge Condition Discharge Reason Percent Goals Met 2017-11-16 00:00:00 2024-04-12 00:00:00 Outpatient RECERTIFIC [facility] [id number] 7.14
== END 2024-04-10 11:03 | disposition home or self-care (01) ==
LOC: HO.LAB 11:02
PROVIDERS: Visit Provider Clinical Nurse Specialist Psychiatric/Mental Health, Adult
DX: Z79.899 Other long term (current) drug therapy (principal)
CPT/HCPCS: 36415; 85025

== ENCOUNTER 2024-05-07 12:29 | Outpatient (REF) | payer OTHER, SELFPAY ==
[2024-05-07 13:01] LABS: MANUAL DIFF FLAG NO
[2024-05-07 13:09] LABS: Basophils Absolute Auto 0.1 X10*3/uL (0.0-0.2); Basophils Percent Auto 0.7 % (0-2); Eosinophils Absolute Auto 0.3 X10*3/uL (0.0-0.4); Eosinophils Percent Auto 3.7 % (0-4); Hematocrit 38.9 % (37.0-47.0); Hemoglobin 12.4 g/dl (12.0-16.0); Imm Gran Abs Auto 0.02 X10*3/uL (0.00-0.03); Imm Gran Pct Auto 0.3 % (0.0-0.4); Lymphocytes Percent Auto 26.5 % (20-40); Mean Corpuscular HGB Conc 31.9 g/dl (31.0-35.0); Mean Corpuscular Hemoglobin 29.5 pg (27.0-33.0); Mean Corpuscular Volume 92.4 fL (80.0-98.0); Monocytes Absolute Auto 0.4 X10*3/uL (0.1-1.2); Monocytes Percent Auto 4.6 % (2-11); Neutrophils Absolute Auto 4.9 x10*3/uL (2.0-8.3); Neutrophils Percent Auto 64.2 % (45-73); Platelet Count 210 X10*3/uL (160-400); Red Blood Count 4.21 X10*6/uL (4.20-5.50); White Blood Count 7.6 X10*3/uL (4.8-10.8)
--- OUTSIDE RECORDS SUMMARY | 2024-05-07 16:22 | XMS_ITS | Encounter Summary ---
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 Procedures MG Mammo Digital Diagnostic w Umer bilat MG Mammo Digital Diagnostic bilat Brittany Garcia MD [address] [place] [id number] [address] Referral ID Status Reason Start Date Expiration Date Visits Re quested Visits Authorized [id number] Closed 03/03/2024 03/03/2025 1 1 Encounter Details Date Type Department Care Team (Latest Contact Info) Description 04/24/2024 7:24 AM EST - 04/24/2024 11:59 PM EST Hospital [facility] [address] [phone] 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 Discharge Disposition: Home or Self Care Social History Tobacco Use Types Packs/Day Years Used Date Smoking Tobacco: Every Day Cigarettes Smokeless Tobacco: Never Alcohol Use Standard Drinks/Week Comments No 0 (1 standard drink = 0.6 oz pur e alcohol) Sex and Gender Information Value Date Recorded Sex Assigned at Female 03/04/2024 2:27 PM EST Gender Identity Female 03/04/2024 2:27 PM EST Sexual Orientation Straight 03/04/2024 2: 27 PM EST Job Start Date Occupation Industry Not on file Not on file Not on file documented as of this encounter Last Filed Vital Signs Vital Sign Reading Time Taken Comments Blood Pressure - - Pulse - - Temperature - - Respiratory Rate - - Oxygen Saturation - - Inhaled Oxygen Concentration - - Weight 107 kg (236 lb) 04/24/2024 7:33 AM EST Height 170.2 cm (5' 7 ) 04/24/2024 7:33 AM EST Body Mass Index 36.96 04/24/2024 7:33 AM EST documented in this encounter Medications at Time of Discharge Medication Sig Dispensed Refills Start Date End Date anastrozole (ARIMIDEX) 1 mg Take 1 tablet (1 mg total) by mouth 1 (one) time each day 02/06/2024 bisacodyL (DULCOLAX) 5 mg EC tablet Take 2 tablets by mouth right before your first dose of liquid prep. carvediloL (COREG) 12.5 mg tablet TAKE 1 TABLET BY MOUTH TWICE A DAY WITH FOOD celecoxib (CeleBREX) 100 mg capsule TAKE 1 CAPSULE BY MOUTH 2 TIMES DAILY FOR 30 DAYS. 03/28/2023 cholecalciferol (VITAMIN D-3) 25 mcg (1,000 unit) capsule TAKE 1 CAPSULE BY MOUTH EVERY DAY clindamycin (CLEOCIN T) 1 % gel Apply topically 2 (two) times a day. For treatment of hydradenitis suppurativa of axillae and groin. 30 g 03/03/2024 03/03/2025 clonazePAM (KlonoPIN) 1 mg tablet Take 1 Tab by mouth 2 times daily as needed. Takes 2 scheduled 2 prns cloZAPine (CLOZARIL) 100 mg tablet Take 300 mg by mouth at bedtime. desmopressin (DDAVP) 0.2 mg tablet Take 1 Tablet by mouth daily. divalproex (DEPAKOTE ER) 500 mg 24 hr tablet Take 1 Tab by mouth 2 times daily. lisinopriL (PRINIVIL,ZESTRIL) 2.5 mg tablet TAKE 1 TABLET BY MOUTH EVERY DAY 90 tablet 04/06/2024 lithium 300 mg capsule Take 1 Capsule by mouth every morning. lithium 300 mg tablet Take 2 Tablets by mouth every evening. omeprazole (PriLOSEC) [address] capsule Take 1 capsule (20 mg total) by mouth 1 (one) time each day. 90 capsule 1 04/28/2024 oxyBUTYnin (DITROPAN) 5 mg tablet TAKE 1 TABLET BY MOUTH TWICE A DAY polyethylene glycol (GoLYTELY) 236-22.74-6.74 -5.86 gram solution Take 240 mL by mouth once for 1 dose. Take 4L by mouth once for one dose. May substitue any PEG. Starting at 6PM the night before your procedure drink 1 8oz glasses at your own pace until rectals run clear. omeprazole (PriLOSEC) [address] capsule TAKE 1 CAPSULE BY MOUTH EVERY DAY 30 capsule 03/23/2024 04/28/2024 documented as of this encounter Discharge Disposition Disposition Code Departure Means Destination Home or Self Care documented in this encounter Plan of Treatment Upcoming Encounters Date Type Department Care Team (Late st Contact Info) Description 06/03/2024 12:45 PM EST Office Visit Adult Medicine [facility] [address] [place] [phone] Joshua Hampton PA [address] [place] [address] 09/01/2024 2:20 PM EDT Office Visit Breast Care Center [facility] [address] [place] [id number] Brittany Garcia MD [address] [place] [address] documented as of this encounter Procedures Procedure Name Priority Date/Time Associated Diagnosis Comments MG MAMMO DIGITAL DIAGNOSTIC W UMER BILAT Routine 04/24/2024 8:36 AM EST 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 ??Postlumpectomy changes bilaterally, stable on the left; no previous mammograms following the right lumpectomy are available for comparison. ??Follow-up bilateral diagnostic mammography in one year is recommended. TISSUE DENSITY: There are scattered areas of fibroglandular density. (BI-RADS category B) IMPRESSION: No mammographic evidence of malignancy. ??Postlumpectomy changes are present bilaterally. BI-RADS CATEGORY: 3 - PROBABLY BENIGN RECOMMENDATION: Diagnostic bilateral mammogram recommended in 1 year. Mammo Location: [facility], [address] [place] [id number] -------- FINAL REPORT -------- Dictated By: Anastacio Pathak Dictated Date: 04/24/2024 08:14 ET Assigned Physician: Anastacio Pathak Reviewed and Electronically Signed By: Anastacio Pathak Signed Date: 04/24/2024 08:26 ET Workstation ID: [id number] Transcribed By: Self Edit Transcribed Date: 04/24/2024 08:14 ET Narrative 04/24/2024 8:26 AM EST CLINICAL: The patient is a 53 years Female with personal history of left breast cancer in 2011 treated with lumpectomy, chemotherapy, and radiation. ??The patient also has a personal history of right breast cancer in 2022, treated with lumpectomy which was performed on 02/06/2023. ??This is the patient's first mammogram following treatment for right breast cancer. COMPARISON: Most recently 02/04/2023 and most remotely 12/08/2021. ?? TECHNIQUE: Full-field digital mammography of the breasts bilaterally consisting of tomosynthesis in MLO and CC projection is performed in the [employer] 2000-D unit. ??Computer aided detection utilizing the iCAD system was utilized. FINDINGS: The breasts are seen to be composed of a combination of fatty and fibroglandular elements. ??Architectural distortion is present at the 12:00 position of the left breast, middle depth, with associated dystrophic calcifications and overlying skin thickening and retraction, representing the lumpectomy site. ??This is unchanged as compared to prior studies dating back to 12/08/2021. ??There is also mild architectural distortion in the right breast, just medial to the nipple line, with surgical clips, representing the right lumpectomy site. ??Mild overlying skin thickening is noted. ??Bilateral breast calcifications, more numerous in the left breast than in the right breast, are without suspicious interval change. ??There is no suspicious cluster of microcalcifications, mass, or other area of architectural distortion. Procedure Note Anastacio Pathak MD - 04/24/2024 CLINICAL: The patient is a 53 years Female with personal history of leftbreast cancer in 2011 treated with lumpectomy, chemotherapy, andradiation. The patient also has a personal history of right breast cancerin 2022, treated with lumpectomy which was performed on 02/06/2023. Thisis the patient's first mammogram following treatment for right breastcancer. COMPARISON: Most recently 02/04/2023 and most remotely 12/08/2021. TECHNIQUE: Full-field digital mammography of the breasts bilaterallyconsisting of tomosynthesis in MLO and CC projection is performed in theAssociated Material Processing[employer]he 2000-D unit. Computer aided detection utilizing the Refinder by G[employer]Dsystem was utilized. FINDINGS: The breasts are seen to be composed of a combination of fattyand fibroglandular elements. Architectural distortion is present at the12:00 position of the left breast, middle depth, with associateddystrophic calcifications and overlying skin thickening and retraction,representing the lumpectomy site. This is unchanged as compared to priorstudies dating back to 12/08/2021. There is also mild architecturaldistortion in the right breast, just medial to the nipple line, withsurgical clips, representing the right lumpectomy site. Mild overlyingskin thickening is noted. Bilateral breast calcifications, more numerousin the left breast than in the right breast, are without suspiciousinterval change. There is no suspicious cluster of microcalcifications,mass, or other area of architectural distortion. IMPRESSION: No mammographic evidence of malignancy. Postlumpectomy changesbilaterally, stable on the left; no previous mammograms following theright lumpectomy are available for comparison. Follow-up bilateraldiagnostic mammography in one year is recommended. TISSUE DENSITY: There are scattered areas of fibroglandular density.(BI-RADS category B) IMPRESSION: No mammographic evidence of malignancy. Postlumpectomy changes arepresent bilaterally. BI-RADS CATEGORY: 3 - PROBABLY BENIGN RECOMMENDATION: Diagnostic bilateral mammogram recommended in 1 year. 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
--- OUTSIDE RECORDS SUMMARY | 2024-05-07 16:23 | XMS_ITS | Encounter Summary ---
Author Organization [facility] Address [address] [place] [address] Care Team Providers Care Occupational Therapy Aides Teacher Name Role Phone Carley Maguire MD Primary Care Provider [phone] Reason for Visit * Reason Onset Date Comments PT-1 04/23/2024 Encounter Details Date Type Department Care Team ([facility] st Contact Info) Description 04/23/2024 Telephone Adult Medicine [address] [phone] Carley Maguire MD [address] [place] [id number] PT-1 Social History Tobacco Use Types Packs/Day Years [...] on file documented as of this encounter Progress Notes * Fatimah Purvis LPN - 04/23/2024 3:15 PM EST PT 1 form submitted Tracking # [id number] Joshua Hampton 4 visit per year * Radha Hurst - 04/23/2024 11:38 AM EST PT-1 Request Call [place] new provider or submitter number is [id number] Verify and document patients [place] Health insurance ID # (NOT [facility] ID): [id number] Payor: [employer] PLAN / Plan: [employer] MEDICAID / Product Type: *No Product type* / Patient mailing address: [address] [place] [phone] (home) [phone] (work) Pt. demographics verified? yes If not accurate, update registration. Is this a NEW request or a RENEWAL? New request Name of treating facility: [facility] Name (first & last) of treating provider? required : Joshua Hampton What is the medical reason why the patient is seeing the above provider? Medication Review Address/Zip code for treating provider: [address] [place] [address] Phone # for treating provider: [phone] Is the provider in the [facility] [employer] network (do they accept [place] Health insurance)? yes What specialtly is this provider? Adult Medicine When is the visit scheduled for? 06/03/24 at 12:45pm How often you will be seeing this particular provider? 3 times a year Do you have friends or family who can transport you to this visit? yes If yes, do not complete request. Is there anything stopping you from using public transportation? If yes, explain: yes Is there a medical reason (diagnosis) why you are unable to use public transportation? If yes, explain: Yes,knee issues and lacks sense of direction Does patient carry self-administered oxygen? no Does patient require door through door or room to room service( ex: member cannot ambulate or wait independently outside their home/facility for transportation. no Is this is for an Adult Day Program or Suboxone clinic If yes to above what is arrival time and what is departure time If yes to above how many days a week? Do you need a wheelchair van? no If you use a wheelchair what is the height, width & length of the wheelchair? Do you need an escort to accompany you? If yes, explain why. no Will you have an alternative pick-up address? no Do you have a service animal? no PT DOES NOT NEED RELEASE OF INFORMATION SIGNED documented in this encounter Plan of Treatment Upcoming Encounters Date Type Department Care Team (Late st Contact Info) Description 06/03/2024 12:45 PM EST Office Visit Adult Medicine [facility] [address] [place] [address] Joshua Hampton PA [address] [place] [address] 09/01/2024 2:20 PM EDT Office Visit [facility] [address] [place] [id number] Brittany Garcia MD [address] [place] [address] documented as of this encounter Visit Diagnoses Not on filedocumented in this encounter Care Teams Occupational Therapy Aides Teacher Relationship Specialty Start Date End Date Carley Maguire MD [address] [place] [id number] PCP - General Internal Medicine 11/13/21 documented as of this encounter
--- OUTSIDE RECORDS SUMMARY | 2024-05-07 16:23 | XMS_ITS | Clinical Summary ---
Author Organization Unknown Care Team Providers Care Pneumatic Tube Repairer Name Role Phone CHAZ DEL RIO, MADI Unavailable Unavailable KATHIE LIMA, AMY Unavailable Unavailable OTONIEL LIMA, YAHAIRA Unavailable Unavailable Payers Payer Name Policy Type Policy Number Effective Date Expira tion Date [facility] [id number] MEDICAID [place] [id number] Problems Condition Name Condition Details Condition Category [...] 1 mg tablet 07-09 00:00: 00 Yes [id number] 1 tablet EVERY AM 1 tablet EVERY AM (route: oral) Med Classific ation: Antineopl astics carvedilol 12.5 mg tablet 07-09 00:00: 00 Yes [id number] 1 tablet Twice a day 1 tablet Twice a day (route: oral) Med Classific ation: Cardiovas cular Therapy Agents clonazepam 1 mg tablet 06-06 00:00: 00 Yes [id number] 1 tablet TWICE A DAY DAILY 1 tablet TWICE A DAY DAILY (route: oral) Alternate Route: BY MOUTH. Med Classific ation: Central Nervous System Agents clonazepam 1 mg tablet 07-09 00:00: 00 08-13 23:59 :00 No [id number] 1 tablet PRN 1 tablet PRN (route: oral) Med Classific ation: Central Nervous System Agents clozapine 100 mg tablet 05-13 00:00: 00 Yes [id number] 3 tablet AT BEDTIME 3 tablet AT BEDTIME (route: oral) Alternate Route: BY MOUTH. Med Classific ation: Central Nervous System Agents desmopressi n 0.2 mg tablet 05-21 00:00: 00 03-07 23:59 :00 No [id number] 2 tablet AT BEDTIME 2 tablet AT BEDTIME (route: oral) Alternate Route: BY MOUTH. Med Classific ation: Endocrine Depakote 500 mg tablet,pedro luis yed release 05-21 00:00: 00 Yes [id number] 1 tablet TWICE A DAY 1 tablet TWICE A DAY (route: oral) Alternate Route: BY MOUTH. Med Classific ation: Central Nervous System Agents lisinopril 2.5 mg tablet 07-09 00:00: 00 Yes [id number] 1 tablet EVERY AM 1 tablet EVERY AM (route: oral) Med Classific ation: Cardiovas cular Therapy Agents lithium carbonate 300 mg capsule 07-09 00:00: 00 Yes [id number] 1 capsule EVERY AM 1 capsule EVERY AM (route: oral) Med Classific ation: Central Nervous System Agents lithium carbonate 300 mg capsule 07-09 00:00: 00 Yes [id number] 2 capsule EVERY PM 2 capsule EVERY PM (route: oral) Med Classific ation: Central Nervous System Agents omeprazole 20 mg capsule,del ayed release 07-09 00:00: 00 Yes [id number] 1 capsule EVERY AM 1 capsule EVERY AM (route: oral) Med Classific ation: Gastroint estinal Therapy Agents oxybutynin chloride 5 mg tablet 07-09 00:00: 00 Yes [id number] 2 tablet EVERY PM 2 tablet EVERY PM (route: oral) Med Classific ation: Genitouri nary Therapy Vitamin D3 25 mcg (1,000 unit) capsule 09-03 00:00: 00 Yes [id number] 1 mcg EVERY AM 1 mcg EVERY AM (route: oral) Med Classific ation: Electroly te Balance-N utritiona l Products doxycycline hyclate 100 mg capsule 12-01 00:00: 00 01-04 23:59 :00 No [id number] 1 capsule 2 TIMES DAILY 1 capsule 2 TIMES DAILY (route: oral) Med Classific ation: Anti-Infe ctive Agents cephalexin 500 mg capsule 11-02 00:00: 00 11-05 23:59 :00 No [id number] 1 capsule 4 TIMES DAILY 1 capsule 4 TIMES DAILY (route: oral) Med Classific ation: Anti-Infe ctive Agents desmopressi n 0.2 mg tablet 2021-04 00:00: 00 Yes [id number] 3 tablet BEDTIME 3 tablet BEDTIME (route: oral) Med Classific ation: Endocrine Immunizations Ordered Immunization Name Filled Immunization Name Date Status Comments Refusal Reason INFLUENZA, TIV (INACTIVATED) 2018-04-08 00:00:00 PNEUMOCOCCAL (PPV), PPV 2018-04-08 00:00:00 Vital Signs Vital Name Observation Time Observation Value Commen ts Temperature 2024-04-16 12:19:00.000 96.9 [degF] Pulse 2024-04-16 12:19:00.000 81 /min Respirations 2024-04-16 12:19:00.000 16 /min Systolic Blood Pressure 2024-04-16 12:19:00.000 122 mm [Hg] Diastolic Blood Pressure 2024-04-16 12:19:00.000 81 mm [Hg] Plan of Treatment Planned Activity Planned Date [...] AWARENESS FOR SAFETY AND WILL NOTIFY CLINICAL LINE ORDERING CLINICIAN AND PHYSICIAN/PROVIDER WITH ANY CHANGE IN CONDITION. [code = SKILLED NURSE WILL MAINTAIN SITUATIONAL AWARENESS FOR SAFETY AND WILL NOTIFY CLINICAL LINE ORDERING CLINICIAN AND PHYSICIAN/PROVIDER WITH ANY CHANGE IN CONDITION.] [...] PROCESS AND/OR DISRUPTION IN COGNITIVE OPERATIONS AND ACTIVITIES [code = SKILLED NURSE FOR O/A OF ALTERED THOUGHT PROCESS AND/OR DISRUPTION IN COGNITIVE OPERATIONS AND ACTIVITIES ] Future Scheduled Test SKILLED NU RSE TO [...] AND PSYCHOSOCIAL SUPPORT SERVICES.] Future Scheduled Test MEDICATION S WILL BE HELD AND STORED IN LOCKBOX [code = MEDICATIONS WILL BE HELD AND STORED IN LOCKBOX] Future Scheduled Test SKILLED NU RSE MAY PICKUP AND TRANSPORT MEDICATIONS [code = SKILLED NURSE MAY PICKUP AND TRANSPORT MEDICATIONS] Goal 2018-11-07 Patient Goal - TAKE LESS [...] AND DECREASE MY NEED FOR MEDICATION. Goal Patient Goal - T O EXERCISE MORE AND DECREASE MY NEED FOR MEDICATION. Goal Provider Goal - A PLAN OF CARE WILL BE ESTABLISHED THAT MEETS PATIENT'S M[facility] NEEDS AND INCLUDES PATIENT GOAL FOR HOME [...] THROUGHOUT CERTIFICATION PERIOD. Goal Provider Goal - MEDICATION WILL BE STORED IN LOCKBOX FOR SAFETY. Goal Provider Goal - SKILLED NURSE PICKED UP AND TRANSPORTED MEDICATIONS FOR SAFETY. Encounters Start Date/Time End Date/Time Encounter Type Admission Type Attending [facility] Care Department Encounter ID Discharge Date Discharge Status Discharge Condition Discharge Reason Percent Goals Met 2017-11-16 00:00:00 2024-06-11 00:00:00 Outpatient RECERTIFIC AMY CURRY [facility] [id number] 02.16
--- OUTSIDE RECORDS SUMMARY | 2024-05-07 16:23 | XMS_ITS | Clinical Summary ---
Author Organization [facility] Address [address] [place] [address] Phone Care Team Providers Care Tong Setter Name Role Phone Carley Maguire MD Primary Care Provider [phone] Allergies Active Allergy Reactions Criticality Noted Date Comments Lamotrigine Swelling 07/21/2011 Quetiapine Fumarate Swelling 07/21/2011 Medications Medication Sig Dispensed Refills Start Date End Date Status bisacodyL (DULCOLAX) 5 mg EC tablet Take 2 tablets by mouth right before your first dose of liquid prep. Active carvediloL (COREG) 12.5 mg tablet TAKE 1 TABLET BY MOUTH TWICE A DAY WITH FOOD Active cholecalciferol (VITAMIN D-3) 25 mcg (1,000 unit) capsule TAKE 1 CAPSULE BY MOUTH EVERY DAY Active clonazePAM (KlonoPIN) 1 mg tablet Take 1 Tab by mouth 2 times daily as needed. Takes 2 scheduled 2 prns Active cloZAPine (CLOZARIL) 100 mg tablet Take 300 mg by mouth at bedtime. Active desmopressin (DDAVP) 0.2 mg tablet Take 1 Tablet by mouth daily. Active divalproex (DEPAKOTE ER) 500 mg 24 hr tablet Take 1 Tab by mouth 2 times daily. Active lithium 300 mg capsule Take 1 Capsule by mouth every morning. Active lithium 300 mg tablet Take 2 Tablets by mouth every evening. Active oxyBUTYnin (DITROPAN) 5 mg tablet TAKE 1 TABLET BY MOUTH TWICE A DAY Active polyethylene glycol (GoLYTELY) 236-22.74-6.74 -5.86 gram solution Take 240 mL by mouth once for 1 dose. Take 4L by mouth once for one dose. May substitue any PEG. Starting at 6PM the night before your procedure drink 1 8oz glasses at your own pace until rectals run clear. Active anastrozole (ARIMIDEX) 1 mg Take 1 tablet (1 mg total) by mouth 1 (one) time each day 02/06/2024 Active celecoxib (CeleBREX) 100 mg capsule TAKE 1 CAPSULE BY MOUTH 2 TIMES DAILY FOR 30 DAYS. 03/28/2023 Active clindamycin (CLEOCIN T) 1 % gel Apply topically 2 (two) times a day. For treatment of hydradenitis suppurativa of axillae and groin. 30 g 03/03/2024 5 Active lisinopriL (PRINIVIL,ZESTR IL) 2.5 mg tablet TAKE 1 TABLET BY MOUTH EVERY DAY 90 tablet 04/06/2024 Active omeprazole (PriLOSEC) [address] capsule Take 1 capsule (20 mg total) by mouth 1 (one) time each day. 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 I discussed the suspected diagnosis of hidradenitis suppurativa with the patient today. I encouraged her to call to make an appointment with dermatology. All questions answered. Overactive bladder 08/07/2021 Chronic instability of knee 06/01/2020 Internal derangement of knee, left 06/01/2020 Patellofemoral pain syndrome of left knee 2020 Primary osteoarthritis of both knees 06/01/2020 Current every day smoker 11/27/2019 Postmenopausal bleeding 08/31/2018 Dilated cardiomyopathy 07/18/2017 Overview (01/16/2024): Cardiac cath 07/11/2017 [facility] - nonobstructive CAD Hypertriglyceridemia 06/17/2017 Tubular adenoma of colon 04/15/2017 Gastroesophageal reflux disease 11/19/2016 Incisional hernia 11/16/2013 Ventral hernia 07/06/2012 Overview (01/16/2024): S/p repair Leukopenia 04/14/2012 Overview (01/16/2024): Clozaril was tapered off but she developed uncontrolled schizoaffective symptoms; Clozaril restarted 12/2012 Alcohol abuse, in remission 01/10/2012 Morbid obesity 07/21/2011 Schizoaffective disorder, bipolar type 2 Encounters Date Type Department Care Team Description 04/24/2024 7:24 AM EST - 04/24/2024 11:59 PM EST [facility] [address] [phone] 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 Discharge Disposition: Home or Self Care 04/23/2024 Telephone Adult Medicine [address] [phone] Carley Maguire MD PT-1 04/23/2024 Telephone Adult Medicine [address] [phone] Carley Maguire MD pt-1 04/23/2024 Telephone Adult Medicine [address] [phone] Carley Maguire MD PT-1 04/23/2024 Telephone Adult Medicine [address] [phone] Carley Maguire MD pt-1 03/03/2024 2:20 PM EST [facility] [address] [phone] Brittany Garcia MD 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 (Primary Dx); Hidradenitis suppurativa from Last 3 Months Immunizations Name Administration Dates Next Due Influenza Quadravalent, MDCK , 0.5ml, with preservative (Flucelvax) 6mo and older 01/16/2018,01/07/2017 Pfizer SARS-CoV-2 COVID-19, mRNA, LNP-S, preservative free 08/21/2020,07/31/2020 Tdap Tetanus diptheria acell ular pertussis (Boostrix; Adacel) 7yo and older 02/22/2023,01/07/2012 Surgical History Surgery Date Site/Laterality Comments TUBAL LIGATION PROCEDURE: HISTORICAL TUBAL LIGATION OTHER SURGICAL HISTORY 11/06/12 PROCEDURE: REPAIR INCARCERATED HERNI; COMMENT: laparoscopy, open repair of incarc ventral hernia, partial omentectomy OTHER SURGICAL HISTORY 02/15/12 PROCEDURE: HISTORICAL PARTIAL UNILATERAL MASTECTOMY; COMMENT: left COLONOSCOPY 03/19/2017 PROCEDURE: HISTORICAL COLONOSCOPY; COMMENT: polyps UPPER GASTROINTESTINAL ENDOSCOPY 03/19/2017 PROCEDURE: MI UPPER GI ENDOSCOPY PERFORMED; COMMENT: gastritis CARDIAC CATHETERIZATION PROCEDURE: HISTORICAL CARDIAC CATH BREAST BIOPSY 2011 Bilateral left 2011, right 2022 BREAST LUMPECTOMY 01/24/12 Bilateral left 2011, right 2022 Medical History Medical History Date Comments Bipolar illness ([facility]) 07/21/2011 DX:Bip olar illness ([facility]) Morbid obesity ([facility]) 07/21/2011 DX:Morb id obesity ([facility]) Schizoaffective disorder, bi polar type ([facility]) 07/21/2011 DX:Schizoaffective disorder, bipolar type ([facility]) Historical Medical DX 01/10/2012 DX:Alcohol abuse, in remission Leukopenia 04/14/2012 DX:Leukopenia; C OMMENT: Clozaril was tapered off but she developed uncontrolled schizoaffective symptoms; Clozaril restarted 12/2012 Historical Medical DX 07/06/2012 DX:Ventral hernia; COMMENT: S/p repair Gastroesophageal reflux disease 11/19/2016 DX:Gastroesophageal reflux disease Tubular adenoma of colon 04/15/2017 DX:Tubu lar adenoma of colon Hypertriglyceridemia 06/17/2017 DX:Hypertri glyceridemia Dilated cardiomyopathy ([facility]) 07/18/2017 DX:Dilated cardiomyopathy ([facility]); COMMENT: Cardiac cath 07/11/2017 [facility] - nonobstructive CAD Chronic systolic heart failure ([facility]) 018 DX:Chronic systolic heart failure ([facility]); COMMENT: Neg cardiac cath (nonobstructive CAD) 07/11/17 at [facility] Postmenopausal bleeding 08/31/2018 DX:Postm enopausal bleeding 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 DX:Infiltrating ductal carci noma of breast (HCC); COMMENT: left Hepatitis C antibody test positive DX:Hepatitis C antibody test positive Family History Medical History Relation Name Comments Other: Other Father possible brain tumor Pneumonia Maternal Grandfather Breast cancer Maternal Grandmother 54 Colon cancer Maternal Grandmother 54 Bipolar disorder Mother Diabetes Mother Other: shizoaffective Mother No Known Problems Son 1 No Known Problems Son 2 No Known Problems Son 3 Esophageal cancer Uncle maternal Relation Name Status Comments Father unknown type ca ncer Maternal Grandfather Maternal Grandmother 54 Mother Alive Paternal Grandfather Paternal Grandmother Son 1 Alive Son 2 Alive Son 3 Alive Uncle Social History Tobacco Use Types Packs/Day Years [...] file Not on file Not on file Obstetrics History Para Term AB IAB SAB Ectopic Multiple Livin g Live Births 3 Last Filed Vital Signs Vital Sign Reading Time Taken Comments Blood Pressure 110/76 08/15/2023 1:02 PM EDT Pulse 79 08/15/2023 1:02 PM EDT Temperature - - Respiratory Rate - - Oxygen Saturation - - Inhaled Oxygen Concentration - - Weight 107 kg (236 lb) 04/24/2024 7:33 AM EST Height 170.2 cm (5' 7 ) 04/24/2024 7:33 AM EST Body Mass Index 36.96 04/24/2024 7:33 AM EST Plan of Treatment Upcoming Encounters Date Type Department Care Team (Late st Contact Info) Description 06/03/2024 12:45 PM EST Office Visit Adult Medicine [facility] [address] [place] [phone] Joshua Hampton PA [address] [place], [place] [phone] 09/01/2024 2:20 PM EDT Office Visit [facility] [place] [address] [place] [phone] Brittany Garcia MD [address] [place] [address] Health Maintenance Due Date Last Done Comments Pneumococcal Vaccine: Pediatrics (0 to 5 Years) and At-Risk Patients (6 to 64 Years) (1 of 2 - PCV) 08/06/1975 Hepatitis A Vaccines (1 of 2 - Risk 2-dose series) 1988 Hepatitis B Vaccines (1 of 3 - 19+ 3-dose series) 1988 Zoster Vaccines (1 of 2) 1988 Colorectal Cancer Screening: Colonoscopy 03/16/2022 Depression Screening 03/16/2022 HIV Screening 03/16/2022 Social Influencers of Health Screening 03/16/2022 COVID-19 Vaccine ( season) 2023 04/19/2022, 04/19/2021, 08/21/2020, Additional history exists Influenza Vaccine (#1) 2023 01/16/2018, 2016 Hypertension/CHF/CAD Annual BMP Blood Test 08/15/2024 08/16/2023, 08/16/2023 Breast Cancer Screening 04/24/2026 04/24/19 25, 01/08/2023, 12/18/2022, Additional history exists Cervical Cancer Screening: HPV 03/21/2027 03/21/2022 Cholesterol Screening (Lipid Panel) 08/15/2028 08/16/2023, 08/16/2023 Osteoporosis Screening (Bone Density Screening) 07/19/2031 07/18/2021, 06/17/2019, 11/11/2017 DTaP,Tdap,and Td Vaccines (3 - Td or Tdap) 02/22/2033 02/22/2023, 01/07/2012 Hepatitis C Screening Completed 01/04/2022 HIB Vaccines Aged Out No longer eligi ble based on patient's age to complete this topic HPV Vaccines Aged Out No longer eligi ble based on patient's age to complete this topic IPV Vaccines Aged Out No longer eligi ble based on patient's age to complete this topic MMR Vaccines Aged Out No longer eligi ble based on patient's age to complete this topic Meningococcal ACWY Vaccine Aged Out N o longer eligible based on patient's age to complete this topic RSV Immunization Patients Under 20 months Aged Out No longer eligible based on patient's age to complete this topic Varicella Vaccines Aged Out No longer eligible based on patient's age to complete this topic Procedures Procedure Name Priority Date/Time Associated Diagnosis Comments MG MAMMO DIGITAL DIAGNOSTIC W FARZAD BILAT Routine 04/24/2024 8:36 AM EST 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 Mammo Location: [facility], [address] [place] [id number] -------- FINAL REPORT -------- Dictated By: Anastacio Pathak Dictated Date: 04/24/2024 08:14 ET Assigned Physician: Anastacio Pathak Reviewed and Electronically Signed By: Anastacio Pathak Signed Date: 04/24/2024 08:26 ET Workstation ID: [id number] Transcribed By: Self Edit Transcribed Date: 04/24/2024 [...] and CC projection is performed in the [employer] 2000-D unit. ??Computer aided detection utilizing the GeneTexD system was utilized. FINDINGS: The breasts are [...] MLO and CC projection is performed in the[employer] Sen[employer] 2000-D unit. Computer aided detection utilizing the Market Trackystem was utilized. FINDINGS: The breasts are seen [...] mammogram recommended in 1 year. Mammo Location: [facility], [address] [place] [id number] -------- FINAL REPORT -------- Dictated By: Anastacio Pathak Dictated Date: 04/24/2024 08:14 ET Assigned Physician: Anastacio Pathak Reviewed and Electronically Signed By: Anastacio Pathak Signed Date: 04/24/2024 08:26 ET Workstation ID: [id number] Transcribed By: Self Edit Transcribed Date: 04/24/2024 08:14 ET Brittany Garcia MD IMG BI PROCEDURES * Annual BMP Blood Test (08/16/2023) Pathologist [facility] Annual BMP Blood Test abstracted Historical Provider [facility] * (ABNORMAL) Lipid panel (08/16/2023) [facility] LDL/HDL Ratio 6(A) 0 - 4 Triglycerides 271(A) 0 - 150 mg/dL Cholesterol 174 0 - 200 mg/dL HDL 31(A) 40 mg/dL LDL Cholesterol 89 0 - 100 mg/dL Blood Venous blood specimen / Unknown Historical Provider LAB BLOOD ORDERAB LES * Cervical Cancer Screening: HPV (03/21/2022) [facility] Cervical Cancer Screening: HPV negative interpretation abstracted Historical Provider [facility] * Hepatitis C Screening (01/04/2022) [facility] Hepatitis C Screening abstracted Historical Provider [facility] * DXA BONE DENSITY STUDY 1+ SITS AXIAL SKEL (07/18/2021 11:27 AM EDT) Anatomical Region Laterality Modality Bone Densitometr y 03/06/2021 12:0 4 PM EST Narrative 07/18/2021 6:01 PM EDT BONE DENSITY ? Lumbar Spine T-score is +0.2 ?? (SD relative to 20-29 y/o adult) Z-score is +1.1 ??(SD relative to age matched peers) This is normal by criteria defined by the WHO. Left Hip T-score is +2.8 Z-score is +3.6 This is normal by criteria defined by the WHO. Impression: Based on the World Health Organization criteria, Aleksandra Waldrop should be classified as having normal bone density. [facility] Department of Internal Medicine recommends using National Osteoporosis Foundation (NOF) guidelines in treatment decisions related to osteoporosis. NOF guidelines suggest considering treatment for postmenopausal women and men aged 50 or older presenting with the following: History of hip or vertebral fracture. T-score less than or equal to -2.5 (DXA) at the femoral neck, total hip, or spine, after appropriate evaluation to exclude secondary causes. Low bone mass (T-score between -1.0 and -2.5 at the femoral neck or spine) AND a 10-year probability of a hip fracture greater than or equal to 3% OR a 10-year probability of a major osteoporosis-related fracture greater than or equal to 20% based on the [place]-adapted WHO algorithm Please note that all treatment decisions require clinical judgment and consideration of individual patient factors, including patient preferences, co-morbidities, previous drug use, risk factors not captured in the FRAX model (e.g., frailty, falls, vitamin D deficiency, increased bone turnover, interval significant decline in bone density) and possible under- or over-estimation of fracture risk by FRAX. Procedure Note Jane Villela MD - 03/27/2022 BONE DENSITY Lumbar Spine T-score is +0.2 (SD relative to 20-29 y/o adult) Z-score is +1.1 (SD relative to age matched peers) This is normal by criteria defined by the WHO. Left Hip T-score is +2.8 Z-score is +3.6 This is normal by criteria defined by the WHO. Impression: Based on the World Health Organization criteria, Aleksandra Waldrop should beclassified as having normal bone density. [facility] Department of Internal Medicine recommendsusing National Osteoporosis Foundation (NOF) guidelines in treatmentdecisions related to osteoporosis. NOF guidelines suggest consideringtreatment for postmenopausal women and men aged 50 or older presentingwith the following: History of hip or vertebral fracture. T-score less than or equal to -2.5 (DXA) at the femoral neck, total hip,or spine, after appropriate evaluation to exclude secondary causes. Low bone mass (T-score between -1.0 and -2.5 at the femoral neck or spine)AND a 10-year probability of a hip fracture greater than or equal to 3% ORa 10-year probability of a major osteoporosis-related fracture greaterthan or equal to 20% based on the [place]-adapted WHO algorithm Please note that all treatment decisions require clinical judgment andconsideration of individual patient factors, including patientpreferences, co-morbidities, previous drug use, risk factors not capturedin the FRAX model (e.g., frailty, falls, vitamin D deficiency, increasedbone turnover, interval significant decline in bone density) and possibleunder- or over-estimation of fracture risk by FRAX. Carlee HILTON IMG DXA PROCEDURES from Last 3 Months or Most Recently Relevant to Health Maintenance Care Teams Tong Setter Relationship Specialty Start Date End Date Carley Maguire MD [address] [place] [id number] PCP - General Internal Medicine 11/13/21
--- OUTSIDE RECORDS SUMMARY | 2024-05-07 16:23 | XMS_ITS | Clinical Summary ---
Author Organization [facility] Address [address] [place] [address] Care Team Providers Care Tow Motor Mechanic Name Role Phone Carley Maguire MD Primary Care Provider [phone] Allergies Active Allergy Reactions Criticality Noted Date Comments Lamotrigine 02/08/2017 Quetiapine 02/08/2017 Medications Medication Sig Dispensed Refills Start Date End Date Status clonazePAM (KLONOPIN) 1 MG tablet Take 1 tablet (1 mg total) by mouth 2 (two) times a day as needed for anxiety. 0 Active oxybutynin (DITROPAN) 5 MG tablet Take 1 tablet (5 mg total) by mouth 3 (three) times a day. 0 Active clozapine (CLOZARIL) 100 MG tablet Take 1 tablet (100 mg total) by mouth daily. 0 Active divalproex (DEPAKOTE) 500 MG EC tablet Take 1 tablet (500 mg total) by mouth 3 (three) times a day. 0 Active desmopressin (DDAVP) 0.2 MG tablet Take 1 tablet (200 mcg total) by mouth daily. 0 Active lithium carbonate 300 MG capsule Take 1 capsule (300 mg total) by mouth 3 (three) times a day with meals. 0 Active lisinopril (PRINIVIL,ZESTRIL) tablet 2.5 mg Take 1 tablet (2.5 mg total) by mouth daily. 0 Active carvedilol (COREG) 6.25 MG tablet Take by mouth 2 (two) times a day with meals. 0 Active cholecalciferol (VITAMIN D3) 1000 units tablet Take 1,000 Units by mouth daily. 0 Active Active Problems No known active problems Family History Medical History Relation Name Comments Cancer Maternal Grandmother breast ca. Cancer Maternal Uncle esophageal ca Relation Name Status Comments Maternal Grandmother Maternal Uncle Social History Tobacco Use Types Packs/Day Years Used Date Smoking Tobacco: Every Day Cigarettes 1 Smokeless Tobacco: Never Alcohol Use Standard Drinks/Week Comments No 0 (1 standard drink = 0.6 oz pur e alcohol) Sex and Gender Information Value Date Recorded Sex Assigned at Not on file Gender Identity Not on file Sexual Orientation Not on file Job Start Date Occupation Industry Not on file Not on file Not on file Last Filed Vital Signs Vital Sign Reading Time Taken Comments Blood Pressure 120/79 06/04/2023 11:57 AM EST Pulse 81 06/04/2023 11:57 AM EST Temperature 36.3 ??C (97.3 ??F) 06/04/2023 11:[address] Respiratory Rate - - Oxygen Saturation 98% 06/04/2023 11:57 AM EST Inhaled Oxygen Concentration - - Weight 107 kg (236 lb) 06/04/2023 11:57 AM EST Height 170.2 cm (5' 7 ) 03/14/2021 9:38 AM EST Body Mass Index 36.96 03/14/2021 9:38 AM EST Plan of Treatment Health Maintenance Due Date Last Done Comments Hepatitis B Vaccines (1 of 3 - 3-dose series) 1969 Hepatitis C Screening 1969 Pneumococcal Vaccine (1 of 2 - PCV) 08/06/1975 Depression Screening 1981 Preventative Health Evaluation 08/06/1987 Shingrix-Zoster Vaccine (1 o f 2) 1988 Cervical Cancer Screening (Pap Smear) 1990 Colon Cancer Screening (Colonoscopy) 2014 Breast Cancer Screening (Mammogram) 08/06/2019 COVID-19 Vaccine (3 - Pfizer risk series) 09/18/2020 08/21/2020, 07/31/2020 Influenza Vaccine (#1) 2023 8, 01/07/2017 DTap / Tdap / Td (3 - Td or Tdap) 02/22/2033 02/22/2023, 01/07/2012 RSV Ped < 20 months Aged Out No longe r eligible based on patient's age to complete this topic Care Teams Tow Motor Mechanic Relationship Specialty Start Date End Date Carley Maguire MD [address] [place] [address] PCP - General Internal Medicine 06/04/23
--- OUTSIDE RECORDS SUMMARY | 2024-05-07 16:23 | XMS_ITS | Clinical Summary ---
Author Organization Unknown Care Team Providers Care Photovoltaic Testing Technician Name Role Phone CHAZ DEL RIO, MADI Unavailable Unavailable KATHIE LIMA, AMY Unavailable Unavailable OTONIEL LIMA, YAHAIRA Unavailable Unavailable Payers Payer Name Policy Type Policy Number Effective Date Expira tion Date [facility] [id number] MEDICAID [place] [id number] Problems Condition Name Condition Details Condition Category [...] 1 mg tablet 07-09 00:00: 00 Yes [id number] 1 tablet EVERY AM 1 tablet EVERY AM (route: oral) Med Classific ation: Antineopl astics carvedilol 12.5 mg tablet 07-09 00:00: 00 Yes [id number] 1 tablet Twice a day 1 tablet Twice a day (route: oral) Med Classific ation: Cardiovas cular Therapy Agents clonazepam 1 mg tablet 06-06 00:00: 00 Yes [id number] 1 tablet TWICE A DAY DAILY 1 tablet TWICE A DAY DAILY (route: oral) Alternate Route: BY MOUTH. Med Classific ation: Central Nervous System Agents clonazepam 1 mg tablet 07-09 00:00: 00 08-13 23:59 :00 No [id number] 1 tablet PRN 1 tablet PRN (route: oral) Med Classific ation: Central Nervous System Agents clozapine 100 mg tablet 05-13 00:00: 00 Yes [id number] 3 tablet AT BEDTIME 3 tablet AT BEDTIME (route: oral) Alternate Route: BY MOUTH. Med Classific ation: Central Nervous System Agents desmopressi n 0.2 mg tablet 05-21 00:00: 00 03-07 23:59 :00 No [id number] 2 tablet AT BEDTIME 2 tablet AT BEDTIME (route: oral) Alternate Route: BY MOUTH. Med Classific ation: Endocrine Depakote 500 mg tablet,pedro luis yed release 05-21 00:00: 00 Yes [id number] 1 tablet TWICE A DAY 1 tablet TWICE A DAY (route: oral) Alternate Route: BY MOUTH. Med Classific ation: Central Nervous System Agents lisinopril 2.5 mg tablet 07-09 00:00: 00 Yes [id number] 1 tablet EVERY AM 1 tablet EVERY AM (route: oral) Med Classific ation: Cardiovas cular Therapy Agents lithium carbonate 300 mg capsule 07-09 00:00: 00 Yes [id number] 1 capsule EVERY AM 1 capsule EVERY AM (route: oral) Med Classific ation: Central Nervous System Agents lithium carbonate 300 mg capsule 07-09 00:00: 00 Yes [id number] 2 capsule EVERY PM 2 capsule EVERY PM (route: oral) Med Classific ation: Central Nervous System Agents omeprazole 20 mg capsule,del ayed release 07-09 00:00: 00 Yes [id number] 1 capsule EVERY AM 1 capsule EVERY AM (route: oral) Med Classific ation: Gastroint estinal Therapy Agents oxybutynin chloride 5 mg tablet 07-09 00:00: 00 Yes [id number] 2 tablet EVERY PM 2 tablet EVERY PM (route: oral) Med Classific ation: Genitouri nary Therapy Vitamin D3 25 mcg (1,000 unit) capsule 09-03 00:00: 00 Yes [id number] 1 mcg EVERY AM 1 mcg EVERY AM (route: oral) Med Classific ation: Electroly te Balance-N utritiona l Products doxycycline hyclate 100 mg capsule 12-01 00:00: 00 01-04 23:59 :00 No [id number] 1 capsule 2 TIMES DAILY 1 capsule 2 TIMES DAILY (route: oral) Med Classific ation: Anti-Infe ctive Agents cephalexin 500 mg capsule 11-02 00:00: 00 11-05 23:59 :00 No [id number] 1 capsule 4 TIMES DAILY 1 capsule 4 TIMES DAILY (route: oral) Med Classific ation: Anti-Infe ctive Agents desmopressi n 0.2 mg tablet 2021-04 00:00: 00 Yes [id number] 3 tablet BEDTIME 3 tablet BEDTIME (route: [...] AWARENESS FOR SAFETY AND WILL NOTIFY CLINICAL ICT MANAGERS AND PHYSICIAN/PROVIDER WITH ANY CHANGE IN CONDITION. [code = SKILLED NURSE WILL MAINTAIN SITUATIONAL AWARENESS FOR SAFETY AND WILL NOTIFY CLINICAL ICT MANAGERS AND PHYSICIAN/PROVIDER WITH ANY CHANGE IN CONDITION.] [...] CARE WILL BE ESTABLISHED THAT MEETS PATIENT'S CUSTODIAL NEEDS AND INCLUDES PATIENT GOAL FOR HOME [...] End Date/Time Encounter Type Admission Type Attending [facility] Care Department Encounter ID Discharge Date Discharge Status Discharge Condition Discharge Reason Percent Goals Met 2017-11-16 00:00:00 2024-06-11 00:00:00 Outpatient RECERTIFIC AMY CURRY [facility] [id number] 02.16
--- OUTSIDE RECORDS SUMMARY | 2024-05-07 16:23 | XMS_ITS | Encounter Summary ---
Author Organization [facility] Address [address] [place] [address] Care Team Providers Care Painter Maintenance Name Role Phone Carley Maguire MD Primary Care Provider [phone] Reason for Visit * Reason Onset Date Comments pt-1 04/23/2024 Encounter Details Date Type Department Care Team ([facility] st Contact Info) Description 04/23/2024 Telephone Adult Medicine [address] [phone] Carley Maguire MD [address] [place] [address] pt-1 Social History Tobacco Use Types Packs/Day Years [...] Notes * Fatimah Purvis LPN - 04/23/2024 3:20 PM EST PT 1 form submitted Tracking # [id number] Brittany Garcia 2 visits yearly * Radha Hurst - 04/23/2024 11:13 AM EST PT-1 Request Call [employer] new provider or submitter number is [id number] Verify and document patients [place] Health insurance ID # (NOT [facility] ID): [id number] Payor: [employer] PLAN / Plan: [employer] MEDICAID / Product Type: *No Product type* / Patient mailing address: [address] [place] [address] (home) [phone] (work) Pt. demographics verified? yes If not accurate, update registration. Is this a NEW request or a RENEWAL? New request Name of treating facility: [facility] Name (first & last) of treating provider? required : Brittany Garcia What is the medical reason why the patient is seeing the above provider? 6 Month Follow-Up for Breast Cancer Address/Zip code for treating provider: [address] [place] [address] Phone # for treating provider: [phone] Is the provider in the [facility] network (do they accept [place] Health insurance)? yes What specialtly is this provider? Gynecologic Oncology When is the visit scheduled for? 09/01/24 at 2:20pm How often you will be seeing this particular provider? 2 times a year Do you have friends or family who can transport you to this visit? yes If yes, do not complete request. Is there anything stopping you from using public transportation? If yes, explain: yes Is there a medical reason (diagnosis) why you are unable to use public transportation? If yes, explain: Yes,knee issues and lack of sense of direction Does patient carry self-administered oxygen? no Does patient require door through door or room to room service( ex: member cannot ambulate or wait independently outside their home/facility for transportation. no Is this is for an Adult Day Program or Suboxone clinic No If yes to above what is arrival [...] 12:45 PM EST Office Visit Adult Medicine [facility] [address] [place] [phone] Joshua Hampton PA [address] [place] [address] 09/01/2024 2:20 PM EDT Office Visit Breast Care Center [facility] [address] [facility] [address] [place] [phone] Brittany Garcia MD [address] [facility] [address] [place] [address] documented as of this encounter Visit Diagnoses Not on filedocumented in this encounter Care Teams Painter Maintenance Relationship Specialty Start Date End Date Carley Maguire MD [address] [place] [address] PCP - General Internal Medicine 11/13/21 documented as of this encounter
--- OUTSIDE RECORDS SUMMARY | 2024-05-07 16:23 | XMS_ITS | Encounter Summary ---
Author Organization [facility] Address [address] [place] [address] Care Team Providers Care Dog Races Manager Name Role Phone Carley Maguire MD Primary Care Provider Reason for Visit * Reason Onset Date Comments pt-1 04/23/2024 Encounter Details Date Type Department Care Team ([facility] st Contact Info) Description 04/23/2024 Telephone Adult Medicine [address] [phone] Carley Maguire MD [address] [place] [address] pt-1 Social History Tobacco Use Types Packs/Day [...] Notes * Fatimah Purvis LPN - 04/23/2024 3:16 PM EST PT 1 form Tracking # [id number] [facility] 5 visits a year * Radha Hurst - 04/23/2024 11:32 AM EST PT-1 Request Call [employer] new provider or submitter number is [id number] Verify and document patients [place] Health insurance ID # (NOT [facility] ID): [id number] Payor: [employer] PLAN / Plan: [employer] MEDICAID / Product Type: *No Product type* / Patient mailing address: [address] [place] [address] [place] [address] (home) [phone] (work) Pt. demographics verified? yes If not accurate, update registration. Is this a NEW request or a RENEWAL? New request Name of treating facility: [facility] Name (first & last) of treating provider? required : Brennen Burton DMD What is the medical reason why the patient is seeing the above provider? Teeth cleanings Address/Zip code for treating provider: [address] [place] [address] Phone # for treating provider: [phone] Is the provider in the [facility] [employer] network (do they accept [place] Health insurance)? yes What specialtly is this provider? Dental When is the visit scheduled for? TBD How often you will be seeing this particular provider? 5 times a year Do you have friends or family who can transport you to this visit? yes If yes, do not complete request. Is there anything stopping you from using public transportation? If yes, explain: yes Is there a medical reason (diagnosis) why you are unable to use public transportation? If yes, explain: Yes,knee issues and lack of direction Does patient carry self-administered oxygen? Does patient require door through door or [...] 12:45 PM EST Office [facility] [address] [place] [address] Joshua Hampton PA [address] [place] [address] 09/01/2024 2:20 PM EDT Office Visit Breast Care Center [facility] [address] [facility] [address] [place] [address] Brittany Garcia MD [address] [facility] [address] [place] [address] documented as of this encounter Visit Diagnoses Not on filedocumented in this encounter Care Teams Dog Races Manager Relationship Specialty Start Date End Date Carley Maguire MD [address] [place] [address] PCP - General Internal Medicine 11/13/21 documented as of this encounter
--- OUTSIDE RECORDS SUMMARY | 2024-05-07 16:23 | XMS_ITS | Encounter Summary ---
Author Organization [facility] Address [address] [place] [address] Care Team Providers Care Dandy Operator Name Role Phone Carley Maguire MD Primary Care Provider [phone] Reason for Visit * Reason Onset Date Comments PT-1 04/23/2024 Encounter Details Date Type Department Care Team ([facility] st Contact Info) Description 04/23/2024 Telephone Adult Medicine [address] [phone] Carley Maguire MD [address] [place] [address] PT-1 Social History Tobacco Use Types Packs/Day [...] Notes * Fatimah Purvis LPN - 04/23/2024 3:19 PM EST PT 1 form submitted Tracking # [id number] [facility] 12 visit yearly * Radha Hurst - 04/23/2024 11:25 AM EST PT-1 Request Call [employer] new provider or submitter number is [id number] Verify and document patients [place] Health insurance ID # (NOT [facility] ID): [id number] Payor: [employer] PLAN / Plan: [employer] MEDICAID / Product Type: *No Product type* / Patient mailing address: [address] [place] [address] (home) [phone] (work) Pt. demographics verified? yes If not accurate, update registration. Is this a NEW request or a RENEWAL? New request Name of treating facility: [facility] Name (first & last) of treating provider? required : No specific person (labs only) What is the medical reason why the patient is seeing the above provider? Blood work Address/Zip code for treating provider: [address] [place] [address] Phone # for treating provider: [phone] Is the provider in the [employer] network (do they accept [place] Health insurance)? yes What specialtly is this provider? Laboratory When is the visit scheduled for? 05/01 at 10:00am How often you will be seeing this particular provider? 12 times a year Do you have friends [...] 12:45 PM EST Office Visit Adult Medicine [facility] [address] [place] [phone] Joshua Hampton PA [address] [place] [address] 09/01/2024 2:20 PM EDT Office Visit Breast Care Center [facility] [address] [place] [address] Brittany Garcia MD [address] [place] [address] documented as of this encounter Visit Diagnoses Not on filedocumented in this encounter Care Teams Dandy Operator Relationship Specialty Start Date End Date Carley Maguire MD [address] [place] [address] PCP - General Internal Medicine 11/13/21 documented as of this encounter
== END 2024-05-07 12:30 | disposition home or self-care (01) ==
LOC: HO.LAB 12:29
PROVIDERS: PCP Internal Medicine; Visit Provider Psychiatry & Neurology Psychiatry
DX: Z79.899 Other long term (current) drug therapy (principal)
CPT/HCPCS: 36415; 85025

== ENCOUNTER 2024-05-18 14:53 | Emergency (ER) | payer OTHER, SELFPAY ==
[2024-05-18 15:55] VITALS: BP 121/90; PULSE 109; RESP 16; TEMP 36.8; O2SAT 98; BMI 36.6
--- NOTE | 2024-05-18 15:59 | ED.FEMALEGU ---
HPI - Female Genitourinary General Chief complaint: Urogenital-Female Stated complaint: personal pain Time Seen by Provider: 05/18/24 22:29 Source: patient Limitations: no limitations History of Present Illness ED Provider: Antionette Huff PA-C HPI Narrative: 53-year-old female with a history of urinary incontinence presents with dysuria x2 days. Associated discolored urine. Denies abdominal pain, back pain, nausea vomiting or fever. Related Data Previous Rx's ?Medication ?Instructions ?Recorded nitrofurantoin 100 mg PO Q12H 7 days #14 caps 05/18/24 monohydrate/macrocrystals 100 mg capsule (Macrobid) phenazopyridine 200 mg tablet 200 mg PO TID PRN pain #10 tabs 05/18/24 (Pyridium) Allergies Allergy/AdvReac Type Severity Reaction Status Date / Time lamotrigine [From LAMICTAL] Allergy Unknown HEART Verified 05/18/24 15:58 PALPITATIONS From SEROQUEL Allergy Unknown HEART Uncoded 05/18/24 15:58 PALPITATIONS Review of Systems Review of Systems: Yes all other systems are reviewed and are negative Constitutional: Constitutional: Denies fatigue and Denies fever(s) Cardiovascular: Cardiovascular: Denies chest pain and Denies dyspnea Respiratory: Respiratory: Denies cough and Denies dyspnea Gastrointestinal: Gastrointestinal: Denies abdominal pain, Denies nausea and Denies vomiting Genitourinary: Genitourinary: Reports dysuria Musculoskeletal: Musculoskeletal: Denies back pain Endocrine: Endocrine: Denies fatigue [facility] Past Medical History Attestation statement: The following information was validated with the patient. Social History Social History Alcohol intake: unknown Patient Tobacco Use Status: Tobacco use Unknown Advance Directives: No Advance Directives Information Provided: Yes Do you have a plan to hurt others: No Plan Physical Exam Vital Signs: Vital Signs: Last Vital Signs Temp 98.2 F 05/18/24 15:55 Pulse 109 H 05/18/24 15:55 Resp 16 05/18/24 15:55 BP 121/90 H 05/18/24 15:55 Pulse Ox 98 05/18/24 15:55 O2 Del Method Room Air 05/18/24 15:55 BMI result Body Mass Index 36.6 Const: Other: Alert Orientation/consciousness: patient oriented x3 Resp: Effort & Inspection: normal respiratory effort Cardio: Other: Normal peripheral perfusion Skin: Other: Warm dry no rash Neuro: General: patient oriented x3, gait normal, no focal motor deficits and CN's II-XI intact bilaterally Psych: Other: Cooperative Course Course Course Narrative: RME, this is a rapid medical exam performed by Mode Daniels please refer to primary provider for complete H&P- 53-year-old female presents for evaluation of burning with urination or urgency. Symptoms started 2 days ago. Plan for urinalysis Medical Decision Making Medical Decision Making [facility] Narrative: 53-year-old female with a history of urinary incontinence presents with dysuria x2 days. Associated discolored urine. Denies abdominal pain, back pain, nausea vomiting or fever. Problem: Urinary incontinence History: Per patient I have considered the following differential diagnoses: UTI, pyelonephritis, renal colic Plan: UA was obtained from triage shows evidence of infection. She has no systemic signs symptoms concerning for pyelonephritis, she has no back or abdominal pain to suggest renal colic. We will Treat accordingly. I have independently reviewed the following tests: Labs: Urine appears infected, it will go to culture to confirm Lab Data Labs: Lab Results 05/18/24 05/18/24 Range/Units 20:18 21:40 Urine Color Yellow Urine Appearance Cloudy Urine pH 6.0 (5.0-9.0) Ur Specific [place] 1.010 (1.005-1.025) Urine Protein 30 (1+) H (Neg-Trace) mg/dL Urine Glucose (UA) Negative (Negative) mg/dL Urine Ketones Negative (Negative) mg/dL Urine Blood Moderate (2+) H (Negative) Urine Nitrite Negative (Negative) Ur Leukocyte Esterase Large (3+) H (Negative) Urine RBC 3-5 H (0-2) /HPF Urine WBC >50 H (0-5) /HPF Ur Squamous Epith Cells 0-2 (0-2) /HPF Urine Bacteria 4+ (None Seen) Hyaline Casts 3-5 (0-2) /LPF Influenza Type A (PCR) NEGATIVE (Negative) Influenza Type B (PCR) NEGATIVE (Negative) RSV RNA Qual (PCR) NEGATIVE (Negative) SARS-CoV-2 RNA (RT-PCR) NEGATIVE (Negative) S. pyogenes GrpA MU Negative (Negative) Discharge Plan Discharge Clinical Impression: Urinary tract infection Patient Disposition: Home, Self-Care Instructions: Urinary Tract Infection in Women (ED) Additional Instructions: You were found to have a urinary tract infection. See home care instructions. Take the Macrobid as directed this is an antibiotic. Use the Pyridium as needed this is specific for bladder pain and spasm. Follow up with your primary care provider as needed. Prescriptions: New phenazopyridine [Pyridium] 200 mg tablet 200 mg PO TID PRN (Reason: pain) Qty: 10 0RF nitrofurantoin monohyd/m-cryst [Macrobid] 100 mg capsule 100 mg PO Q12H 7 Days Qty: 14 0RF Rx Instructions: must administer with a meal/food Print Language: Tajik
--- OUTSIDE RECORDS SUMMARY | 2024-05-18 19:41 | XMS_ITS | Encounter Summary ---
Author Organization [facility] Address [address] [place] [address] Care Team Providers Care Fabric And Accessories Estimator Name Role Phone Carley Maguire MD Primary Care Provider [phone] Reason for Visit * Reason Onset Date Comments pt-1 04/23/2024 Encounter Details Date Type Department Care Team ([facility] st Contact Info) Description 04/23/2024 Telephone Adult Medicine [address] [phone] Carley Maguire MD [address] [place] [address] pt-1 Social History Tobacco Use Types Packs/Day Years Used Date Smoking Tobacco: Every Day Cigarettes Smokeless Tobacco: Never Alcohol Use Standard Drinks/Week Comments No 0 (1 standard drink = 0.6 oz pur e alcohol) Comments Unknown Sex and Gender Information Value Date Recorded Sex Assigned at Female 03/04/2024 2:27 PM EST Legal Sex Female 2:13 AM EST Gender Identity Female 03/04/2024 2:27 PM EST Sexual Orientation Straight 03/04/2024 2: 27 PM EST documented as of this encounter Progress Notes * Fatimah Purvis LPN - 04/23/2024 3:20 PM EST PT 1 form submitted Tracking # [id number] Brittany Bonnytyson 2 visits yearly * Radha Hurst - 04/23/2024 11:13 AM EST PT-1 Request Call [employer] new provider or submitter number is [id number] Verify and document patients [place] Health insurance ID # (NOT [facility] ID): [id number] Payor: [employer] PLAN / Plan: [employer] MEDICAID / Product Type: *No Product type* / Patient mailing address: [address] [place] [address] (home) [phone] (work) Pt. demographics verified? yes If not accurate, update registration. Is this a NEW request or a RENEWAL? New request Name of treating facility: [facility] Name (first & last) of treating provider? required : Brittany Garcia What is the medical reason why the patient is seeing the above provider? 6 Month Follow-Up for Breast Cancer Address/Zip code for treating provider: [address] [place] [address] Phone # for treating provider: [phone] Is the provider in the [employer] network (do they accept [place] Health insurance)? yes What specialtly is this [...] 12:45 PM EST Office Visit Adult Medicine [facility] [address] [place] [address] Joshua Hampton PA [address] [place] [address] 09/01/2024 2:20 PM EDT Office Visit Breast Care Center [facility] [address] [facility] [address] [place] [phone] Brittany Garcia MD [address] [facility] [address] [place] [address] documented as of this encounter Visit Diagnoses Not on filedocumented in this encounter Care Teams Fabric And Accessories Estimator Relationship Specialty Start Date End Date Carley Maguire MD [address] [place] [address] PCP - General Internal Medicine 11/13/21 documented as of this encounter
--- OUTSIDE RECORDS SUMMARY | 2024-05-18 19:41 | XMS_ITS | Encounter Summary ---
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 Procedures [facility] Mammo Digital Diagnostic w Umer bilat MG Mammo Digital Diagnostic bilat Brittany Garcia MD [address] [place] [address] Phone: tel: fax: [address] [address] Phone: tel: Referral ID Status Reason Start Date Expiration Date Visits Re quested Visits Authorized [id number] Closed 03/03/2024 03/03/2025 1 1 Encounter Details Date Type Department Care Team (Latest Contact Info) Description 04/24/2024 7:24 AM EST - 04/24/2024 11:59 PM EST [facility] [address] [address] 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 Discharge Disposition: Home or Self Care Social History Tobacco Use Types Packs/Day Years Used Date Smoking Tobacco: Every Day Cigarettes Smokeless Tobacco: Never Alcohol Use Standard Drinks/Week Comments No 0 (1 standard drink = 0.6 oz pur e alcohol) Comments No Sex and Gender Information Value Date Recorded Sex Assigned at Female 03/04/2024 2:27 PM EST Legal Sex Female 2:13 AM EST Gender Identity Female 03/04/2024 2:27 PM EST Sexual Orientation Straight 03/04/2024 2: 27 PM EST documented as of this encounter Last Filed [...] this encounter Medications at Time of Discharge anastrozole (ARIMIDEX) 1 mg Take 1 tablet (1 mg total) by mouth 1 (one) time each day 02/06/2024 bisacodyL (DULCOLAX) 5 mg EC tablet Take 2 tablets by mouth right before your first dose of liquid prep. celecoxib (CeleBREX) 100 mg capsule TAKE 1 CAPSULE BY MOUTH 2 TIMES DAILY FOR 30 DAYS. 03/28/2023 cholecalciferol (VITAMIN D-3) 25 mcg (1,000 unit) capsule TAKE 1 CAPSULE BY MOUTH EVERY DAY clindamycin (CLEOCIN T) 1 % gel Apply topically 2 (two) times a day. For treatment of hydradenitis suppurativa of axillae and groin. 30 g 03/03/2024 clonazePAM (KlonoPIN) 1 mg tablet Take 1 Tab by mouth 2 times daily as needed. Takes 2 scheduled 2 prns cloZAPine (CLOZARIL) 100 mg tablet Take 300 mg by mouth at bedtime. desmopressin (DDAVP) 0.2 mg tablet Take 1 Tablet by mouth daily. divalproex (DEPAKOTE ER) 500 mg 24 hr tablet Take 1 Tab by mouth 2 times daily. lisinopriL (PRINIVIL,ZESTRI L) 2.5 mg tablet TAKE 1 TABLET BY [...] your own pace until rectals run clear. carvediloL (COREG) 12.5 mg tablet TAKE 1 TABLET BY MOUTH TWICE A DAY WITH FOOD 5 omeprazole (PriLOSEC) [address] capsule TAKE 1 CAPSULE BY MOUTH EVERY DAY 30 capsule 03/23/2024 5 documented as of this encounter Discharge Disposition Disposition Code Departure Means Destination Home or Self Care documented in this encounter Plan of Treatment Upcoming Encounters Date Type Department Care Team (Late st Contact Info) Description 06/03/2024 12:45 PM EST Office Visit Adult Medicine [address] [phone] Joshua Hampton PA [address] [place] [address] 09/01/2024 2:20 PM EDT Office Visit Breast Care Center [facility] [address] [address] [place] [address] Brittany Garcia MD [address] [facility] [facility] [address] [place] [address] documented as of this encounter Procedures Procedure [...] mammogram recommended in 1 year. Mammo Location: [facility], [address] [place] [address] -------- FINAL REPORT -------- Dictated By: Anastacio Pathak Dictated Date: 04/24/2024 08:14 ET Assigned Physician: Anastacio Pathak Reviewed and Electronically Signed By: Anastacio Pathak Signed Date: 04/24/2024 08:26 ET Workstation ID: [id number] Transcribed By: Self Edit Transcribed Date: 04/24/2024 [...] and CC projection is performed in the IPLockse 2000-D unit. ??Computer aided detection utilizing the viaForensics system was utilized. FINDINGS: The breasts are [...] MLO and CC projection is performed in the[employer] Senographe 2000-D unit. Computer aided detection utilizing the InksharesDsystem was utilized. FINDINGS: The breasts are seen [...] mammogram recommended in 1 year. 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
--- OUTSIDE RECORDS SUMMARY | 2024-05-18 19:41 | XMS_ITS | Encounter Summary ---
Author Organization [facility] Address [address] [place] [address] Care Team Providers Care Tar Roofer Name Role Phone Carley Maguire MD Primary Care Provider [phone] Reason for Visit * Reason Onset Date Comments PT-1 04/23/2024 Encounter Details Date Type Department Care Team ([facility] st Contact Info) Description 04/23/2024 Telephone Adult Medicine [address] [phone] Carley Maguire MD [address] [place] [address] PT-1 Social History Tobacco Use Types Packs/Day [...] EST PT 1 form submitted Tracking # [id number] [facility] 12 visit yearly * Radha Hurst - 04/23/2024 11:25 AM EST PT-1 Request Call [employer] new provider or submitter number is [id number] Verify and document patients [place] Health insurance ID # (NOT [facility] ID): [id number] Payor: FP Complete PLAN / Plan: [place] MEDICAID / Product Type: *No Product type* / Patient mailing address: [address] [place] [phone] (home) [phone] (work) Pt. demographics verified? yes If not accurate, update registration. Is this a NEW request or a RENEWAL? New request Name of treating facility: [facility] Name (first & last) of treating provider? required : No specific person (labs only) What is the medical reason why the patient is seeing the above provider? Blood work Address/Zip code for treating provider: [address] [place] [address] Phone # for treating provider: [phone] Is the provider in the [facility] [employer] network (do they accept [place] Health insurance)? yes What specialtly is this [...] 12:45 PM EST Office Visit Adult Medicine [facility] [address] [place] [phone] Joshua Hampton PA [address] [place] [address] 09/01/2024 2:20 PM EDT Office Visit Breast Care Center [facility] [address] [facility] [address] [place] [phone] Brittany Garcia MD [address] [facility] [address] [place] [address] documented as of this encounter Visit Diagnoses Not on filedocumented in this encounter Care Teams Tar Roofer Relationship Specialty Start Date End Date Carley Maguire MD [address] [place] [address] PCP - General Internal Medicine 11/13/21 documented as of this encounter
--- OUTSIDE RECORDS SUMMARY | 2024-05-18 19:41 | XMS_ITS | Encounter Summary ---
Author Organization [facility] Address [address] [place] [address] Care Team Providers Care Right Of Way Worker Name Role Phone Carley Maguire MD Primary Care Provider [phone] Reason for Visit * Reason Onset Date Comments PT-1 04/23/2024 Encounter Details Date Type Department Care Team ([facility] st Contact Info) Description 04/23/2024 Telephone Adult Medicine [address] [address] Carley Maguire MD [address] [place] [address] PT-1 Social History Tobacco Use Types Packs/Day [...] EST PT 1 form submitted Tracking # [id number] Joshua Hampton 4 visit per year * Radha Hurst - 04/23/2024 11:38 AM EST PT-1 Request Call [facility] [employer] [facility] new provider or submitter number is [id number] Verify and document patients [place] Health insurance ID # (NOT [facility] ID): [id number] Payor: Har[employer] PLAN / Plan: [employer] MEDICAID / Product Type: *No Product type* / Patient mailing address: [address] [place] [phone] (home) [phone] (work) Pt. demographics verified? yes If not accurate, update registration. Is this a NEW request or a RENEWAL? New request Name of treating facility: [facility] Name (first & last) of treating provider? required : Joshua Hampton What is the medical reason why the patient is seeing the above provider? Medication Review Address/Zip code for treating provider: [address] [place] [address] Phone # for treating provider: [phone] Is the provider in the [facility] [employer] network (do they accept [place] Health insurance)? yes What specialtly is this [...] Office Visit Adult Medicine [facility] [address] [place] [address] Joshua Hampton PA [address] [place] [address] 09/01/2024 2:20 PM EDT Office Visit Breast Care Center [facility] [address] [facility] [address] [place] [phone] Brittany Garcia MD [address] [facility] [address] [place] [address] documented as of this encounter Visit Diagnoses Not on filedocumented in this encounter Care Teams Right Of Way Worker Relationship Specialty Start Date End Date Carley Maguire MD [address] [place] [address] PCP - General Internal Medicine 11/13/21 documented as of this encounter
--- OUTSIDE RECORDS SUMMARY | 2024-05-18 19:41 | XMS_ITS | Clinical Summary ---
Author Organization Unknown Care Team Providers Care Personal Care Service Provider Name Role Phone CHAZ DEL RIO, MADI Unavailable Unavailable KATHIE LIMA, AMY Unavailable Unavailable OTONIEL LIMA, YAHAIRA Unavailable Unavailable Payers Payer Name Policy Type Policy Number Effective Date Expira tion Date [facility] [id number] MEDICAID [place] [id number] Problems Condition Name Condition Details Condition Category [...] 1 mg tablet 07-09 00:00: 00 Yes [id number] 1 tablet EVERY AM 1 tablet EVERY AM (route: oral) Med Classific ation: Antineopl astics carvedilol 12.5 mg tablet 07-09 00:00: 00 Yes [id number] 1 tablet Twice a day 1 tablet Twice a day (route: oral) Med Classific ation: Cardiovas cular Therapy Agents clonazepam 1 mg tablet 06-06 00:00: 00 Yes [id number] 1 tablet TWICE A DAY DAILY 1 tablet TWICE A DAY DAILY (route: oral) Alternate Route: BY MOUTH. Med Classific ation: Central Nervous System Agents clonazepam 1 mg tablet 07-09 00:00: 00 08-13 23:59 :00 No [id number] 1 tablet PRN 1 tablet PRN (route: oral) Med Classific ation: Central Nervous System Agents clozapine 100 mg tablet 05-13 00:00: 00 Yes [id number] 3 tablet AT BEDTIME 3 tablet AT BEDTIME (route: oral) Alternate Route: BY MOUTH. Med Classific ation: Central Nervous System Agents desmopressi n 0.2 mg tablet 05-21 00:00: 00 03-07 23:59 :00 No [id number] 2 tablet AT BEDTIME 2 tablet AT BEDTIME (route: oral) Alternate Route: BY MOUTH. Med Classific ation: Endocrine Depakote 500 mg tablet,pedro luis yed release 05-21 00:00: 00 Yes [id number] 1 tablet TWICE A DAY 1 tablet TWICE A DAY (route: oral) Alternate Route: BY MOUTH. Med Classific ation: Central Nervous System Agents lisinopril 2.5 mg tablet 07-09 00:00: 00 Yes [id number] 1 tablet EVERY AM 1 tablet EVERY AM (route: oral) Med Classific ation: Cardiovas cular Therapy Agents lithium carbonate 300 mg capsule 07-09 00:00: 00 Yes [id number] 1 capsule EVERY AM 1 capsule EVERY AM (route: oral) Med Classific ation: Central Nervous System Agents lithium carbonate 300 mg capsule 07-09 00:00: 00 Yes [id number] 2 capsule EVERY PM 2 capsule EVERY PM (route: oral) Med Classific ation: Central Nervous System Agents omeprazole 20 mg capsule,del ayed release 07-09 00:00: 00 Yes [id number] 1 capsule EVERY AM 1 capsule EVERY AM (route: oral) Med Classific ation: Gastroint estinal Therapy Agents oxybutynin chloride 5 mg tablet 07-09 00:00: 00 Yes [id number] 2 tablet EVERY PM 2 tablet EVERY PM (route: oral) Med Classific ation: Genitouri nary Therapy Vitamin D3 25 mcg (1,000 unit) capsule 09-03 00:00: 00 Yes [id number] 1 mcg EVERY AM 1 mcg EVERY AM (route: oral) Med Classific ation: Electroly te Balance-N utritiona l Products doxycycline hyclate 100 mg capsule 12-01 00:00: 00 01-04 23:59 :00 No [id number] 1 capsule 2 TIMES DAILY 1 capsule 2 TIMES DAILY (route: oral) Med Classific ation: Anti-Infe ctive Agents cephalexin 500 mg capsule 11-02 00:00: 00 11-05 23:59 :00 No [id number] 1 capsule 4 TIMES DAILY 1 capsule 4 TIMES DAILY (route: oral) Med Classific ation: Anti-Infe ctive Agents desmopressi n 0.2 mg tablet 2021-04 00:00: 00 Yes [id number] 3 tablet BEDTIME 3 tablet BEDTIME (route: [...] AWARENESS FOR SAFETY AND WILL NOTIFY CLINICAL CORPORATE AUDITOR AND PHYSICIAN/PROVIDER WITH ANY CHANGE IN CONDITION. [code = SKILLED NURSE WILL MAINTAIN SITUATIONAL AWARENESS FOR SAFETY AND WILL NOTIFY CLINICAL CORPORATE AUDITOR AND PHYSICIAN/PROVIDER WITH ANY CHANGE IN CONDITION.] [...] CARE WILL BE ESTABLISHED THAT MEETS PATIENT'S LONGTERM NEEDS AND INCLUDES PATIENT GOAL FOR HOME [...] End Date/Time Encounter Type Admission Type Attending [facility] Care Department Encounter ID Discharge Date Discharge Status Discharge Condition Discharge Reason Percent Goals Met 2017-11-16 00:00:00 2024-06-11 00:00:00 Outpatient RECERTIFIC AMY CURRY [facility] [id number] 02.16
--- OUTSIDE RECORDS SUMMARY | 2024-05-18 19:42 | XMS_ITS | Clinical Summary ---
Author Organization [facility] Address [address] [place] [address] Care Team Providers Care Hat Finisher Name Role Phone Carley Maguire MD Primary Care Provider [phone] Allergies Active Allergy Reactions Criticality Noted Date [...] age to complete this topic Care Teams Hat Finisher Relationship Specialty Start Date End Date Carley Maguire MD [address] [place] [address] PCP - General Internal Medicine 06/04/23
--- OUTSIDE RECORDS SUMMARY | 2024-05-18 19:42 | XMS_ITS | Clinical Summary ---
Author Organization [facility] Address [address] [place] [address] Phone Care Team Providers Care Scarf Gluer Name Role Phone Carley Maguire MD Primary Care Provider [phone] Allergies Active Allergy Reactions Criticality Noted Date Comments Lamotrigine Swelling 07/21/2011 Quetiapine Fumarate Swelling 07/21/2011 Medications bisacodyL (DULCOLAX) 5 mg EC tablet Take 2 tablets by mouth right before your first dose of liquid prep. Active cholecalcifero l (VITAMIN D-3) 25 mcg (1,000 unit) capsule [...] by mouth 1 (one) time each day 02/06/20 24 Active celecoxib (CeleBREX) 100 mg capsule TAKE 1 CAPSULE BY MOUTH 2 TIMES DAILY FOR 30 DAYS. 03/28/20 23 Active clindamycin (CLEOCIN T) 1 % gel Apply topically 2 (two) times a day. For treatment of hydradenitis suppurativa of axillae and groin. 30 g 03/03/20 24 025 Active lisinopriL (PRINIVIL,ZEST RIL) 2.5 mg tablet TAKE 1 TABLET BY MOUTH EVERY DAY 90 tablet 04/06/20 24 Active omeprazole (PriLOSEC) [address] capsule Take 1 capsule (20 mg total) by mouth 1 (one) time each day. 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 Discharge Disposition: Home or Self Care 04/23/2024 Telephone Adult Medicine [address] [phone] Carley Maguire MD PT-1 04/23/2024 Telephone Adult Medicine [address] [phone] Carley Maguire MD pt-1 04/23/2024 Telephone Adult Medicine [address] [phone] Carley Maguire MD PT-1 04/23/2024 Telephone Adult Medicine [address] [phone] Carley Maguire MD pt-1 03/03/2024 2:20 PM EST Office Visit [facility] Center [address] [phone] Brittany Garcia MD 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 (Primary Dx); Hidradenitis suppurativa from Last 3 Months Immunizations Name Administration Dates Next Due Influenza Quadravalent, MDCK , 0.5ml, with preservative (Flucelvax) 6mo and older 01/16/2018,01/07/2017 [place] SARS-CoV-2 COVID-19, mRNA, LNP-S, preservative free 08/21/2020,07/31/2020 [...] COMMENT: polyps UPPER GASTROINTESTINAL ENDOSCOPY 03/19/2017 PROCEDURE: GA UPPER GI ENDOSCOPY PERFORMED; COMMENT: gastritis CARDIAC CATHETERIZATION PROCEDURE: HISTORICAL CARDIAC CATH BREAST BIOPSY 2011 Bilateral left 2011, right 2022 BREAST LUMPECTOMY 01/24/12 Bilateral left 2011, right 2022 Medical History Medical History Date Comments Bipolar illness ([facility]) 07/21/2011 DX:Bip olar illness ([facility]) Morbid obesity ([facility]) 07/21/2011 DX:Morb id obesity ([facility]) Schizoaffective disorder, bi polar type ([facility]) 07/21/2011 DX:Schizoaffective disorder, bipolar type ([facility]) Historical Medical DX 01/10/2012 DX:Alcohol abuse, in remission Leukopenia 04/14/2012 DX:Leukopenia; C OMMENT: Clozaril was tapered off but she developed uncontrolled schizoaffective symptoms; Clozaril restarted 12/2012 Historical Medical DX 07/06/2012 DX:Ventral hernia; COMMENT: S/p repair Gastroesophageal reflux disease 11/19/2016 DX:Gastroesophageal reflux disease Tubular adenoma of colon 04/15/2017 DX:Tubu lar adenoma of colon Hypertriglyceridemia 06/17/2017 DX:Hypertri glyceridemia Dilated cardiomyopathy ([facility]) 07/18/2017 DX:Dilated cardiomyopathy ([facility]); COMMENT: Cardiac cath 07/11/2017 [facility] - nonobstructive CAD Chronic systolic heart failure ([facility]) 018 DX:Chronic systolic heart failure (HCC); COMMENT: Neg cardiac cath (nonobstructive CAD) 07/11/17 at [facility] Postmenopausal bleeding 08/31/2018 DX:Postm enopausal bleeding [...] Orientation Straight 03/04/2024 2: 27 PM EST Obstetrics History Para Term AB IAB SAB [...] Encounters Date Type Department Care Team (Late Contact Info) Description 06/03/2024 12:45 PM EST Office Visit Adult Medicine [address] [place] [address] Joshua Hampton PA [address] [place] [address] 09/01/2024 2:20 PM EDT Office Visit Breast Care Center [facility] [address] [facility] [address] [place] [phone] Brittany Garcia MD [address] [place] [address] Health Maintenance Due Date Last Done Comments Hepatitis A Vaccines (1 of 2 - Risk 2-dose series) 1988 Hepatitis B Vaccines (1 of 3 - 19+ 3-dose series) 1988 Pneumococcal Vaccine: 50+ Years (1 of 2 - PCV) 1988 Pneumococcal Vaccine: Pediatrics (0 to 5 Years) and At-Risk Patients (6 to 64 Years) (1 of 2 - PCV) 1988 Zoster Vaccines (1 of 2) 1988 Colorectal Cancer Screening: Colonoscopy 03/16/2022 Depression Screening 03/16/2022 HIV Screening 03/16/2022 Social Influencers of Health Screening 03/16/2022 DTaP,Tdap,and Td Vaccines (3 - Td or Tdap) 08/23/2023 02/22/2023, 01/07/2012 COVID-19 Vaccine ( season) 2023 04/19/2022, 04/19/2021, 08/21/2020, Additional history exists Influenza Vaccine (#1) 2023 01/16/2018, 2016 Hypertension/CHF/CAD Annual BMP Blood Test 08/15/2024 08/16/2023, 08/16/2023 Breast Cancer Screening 04/24/2026 04/24/19, 01/08/2023, 12/18/2022, Additional history exists Cervical Cancer Screening: HPV 03/21/2027 03/21/2022 Cholesterol Screening (Lipid Panel) 08/15/2028 08/16/2023, 08/16/2023 Osteoporosis Screening (Bone Density Screening) 07/19/2031 07/18/2021, 06/17/2019, 11/11/2017 Hepatitis C Screening Completed 01/04/2022 HIB Vaccines [...] patient's age to complete this topic Meningococcal B Vacine Aged Out No lo nger eligible based on patient's age to complete [...] mammogram recommended in 1 year. Mammo Location: [facility], [address] [place] [address] -------- FINAL REPORT -------- Dictated By: Anastacio Pathak Dictated Date: 04/24/2024 08:14 ET Assigned Physician: Anastacio Pathak Reviewed and Electronically Signed By: Anastacio Pathak Signed Date: 04/24/2024 08:26 ET Workstation ID: [id number] Transcribed By: Self Edit Transcribed Date: 04/24/2024 [...] and CC projection is performed in the dilitronicse 2000-D unit. ??Computer aided detection utilizing the [...] MLO and CC projection is performed in theSynapsifyographe 2000-D unit. Computer aided detection utilizing the Oligomerixystem was utilized. FINDINGS: The breasts are seen [...] mammogram recommended in 1 year. Mammo Location: [facility], [address] [place] [address] -------- FINAL REPORT -------- Dictated By: Anastacio Pathak Dictated Date: 04/24/2024 08:14 ET Assigned Physician: Anastacio Pathak Reviewed and Electronically Signed By: Anastacio Pathak Signed Date: 04/24/2024 08:26 ET Workstation ID: [id number] Transcribed By: Self Edit Transcribed Date: 04/24/2024 08:14 ET Brittany Garcia MD IMG BI PROCEDURES Final Result * Annual BMP Blood Test (08/16/2023) [facility] Annual BMP Blood Test abstracted Result [facility] Provider HEALTH MAINTENANCE Final Result * (ABNORMAL) Lipid panel (08/16/2023) [facility] LDL/HDL Ratio 6(A) 0 - 4 Triglycerides 271(A) 0 - 150 mg/dL Cholesterol 174 0 - 200 mg/dL HDL 31(A) >=40 mg/dL LDL Cholesterol 89 0 - 100 mg/dL Blood Venous blood specimen / Unknown Result [facility] Historical Provider LAB BLOOD ORDERABLES Hollie l Result * Cervical Cancer Screening: HPV (03/21/2022) [facility] Cervical Cancer Screening: HPV negative interpretation abstracted Result [facility] Historical Provider HEALTH MAINTENANCE Final Result * Hepatitis C Screening (01/04/2022) [facility] Hepatitis C Screening abstracted Result [facility] Historical Provider HEALTH MAINTENANCE Final Result * DXA BONE DENSITY STUDY 1+ SITS [...] classified as having normal bone density. [facility] Department of Internal Medicine recommends using [...] beclassified as having normal bone density. [facility] Department of Internal Medicine recommendsusing National [...] of fracture risk by FRAX. Carlee [facility] DXA PROCEDURES Final Result from Last 3 Months or Most Recently Relevant to Health Maintenance Insurance [facility] [employer] Care Teams Scarf Gluer Relationship Specialty Start Date End Date Carley Maguire MD [address] [place] [address] PCP - General Internal Medicine 11/13/21
--- OUTSIDE RECORDS SUMMARY | 2024-05-18 19:42 | XMS_ITS | Encounter Summary ---
Author Organization [facility] Address [address] [place] [address] Care Team Providers Care Virtual Assistant Name Role Phone Carley Maguire MD Primary Care Provider [phone] Reason for Visit * Reason Onset Date Comments pt-1 04/23/2024 Encounter Details Date Type Department Care Team ([facility] st Contact Info) Description 04/23/2024 Telephone Adult Medicine [address] [phone] Carley Maguire MD [address] [place] [address] pt-1 Social History Tobacco Use Types Packs/Day [...] PM EST PT 1 form Tracking # [id number] [facility] susan 5 visits a year * Radha Hurst - 04/23/2024 11:32 AM EST PT-1 Request Call [employer]aira[employer] new provider or submitter number is [id number] Verify and document patients [place] Health insurance ID # (NOT [facility] ID): [id number] Payor: [employer] PLAN / Plan: [employer] MEDICAID / Product Type: *No Product type* / Patient mailing address: [address] [place] [address] (home) [phone] (work) Pt. demographics verified? yes If not accurate, update registration. Is this a NEW request or a RENEWAL? New request Name of treating facility: [facility] Name (first & last) of treating provider? required : Brennen Burton DMD What is the medical reason why the patient is seeing the above provider? Teeth cleanings Address/Zip code for treating provider: [address] [place] [address] Phone # for treating provider: [phone] Is the provider in the [facility] network (do they accept [place] Health insurance)? [...] 12:45 PM EST Office Visit Adult Medicine [facility] [address] [place] [address] Joshua Hampton PA [address] [place] [address] 09/01/2024 2:20 PM EDT Office Visit [facility] [address] [place] [address] Brittany Garcia MD [address] [facility] [address] [place] [address] documented as of this encounter Visit Diagnoses Not on filedocumented in this encounter Care Teams Virtual Assistant Relationship Specialty Start Date End Date Carley Maguire MD [address] [place] [address] PCP - General Internal Medicine 11/13/21 documented as of this encounter
--- OUTSIDE RECORDS SUMMARY | 2024-05-18 19:42 | XMS_ITS | Clinical Summary ---
Author Organization Unknown Care Team Providers Care Coke Loader Name Role Phone CHAZ DEL RIO, MADI Unavailable Unavailable KATHIE LIMA, AMY Unavailable Unavailable OTONIEL LIMA, YAHAIRA Unavailable Unavailable Payers Payer Name Policy Type Policy Number Effective Date Expira tion Date [facility] [id number] [place] [id number] Problems Condition Name Condition Details Condition Category [...] 1 mg tablet 07-09 00:00: 00 Yes [id number] 1 tablet EVERY AM 1 tablet EVERY AM (route: oral) Med Classific ation: Antineopl astics carvedilol 12.5 mg tablet 07-09 00:00: 00 Yes [id number] 1 tablet Twice a day 1 tablet Twice a day (route: oral) Med Classific ation: Cardiovas cular Therapy Agents clonazepam 1 mg tablet 06-06 00:00: 00 Yes [id number] 1 tablet TWICE A DAY DAILY 1 tablet TWICE A DAY DAILY (route: oral) Alternate Route: BY MOUTH. Med Classific ation: Central Nervous System Agents clonazepam 1 mg tablet 07-09 00:00: 00 08-13 23:59 :00 No [id number] 1 tablet PRN 1 tablet PRN (route: oral) Med Classific ation: Central Nervous System Agents clozapine 100 mg tablet 05-13 00:00: 00 Yes [id number] 3 tablet AT BEDTIME 3 tablet AT BEDTIME (route: oral) Alternate Route: BY MOUTH. Med Classific ation: Central Nervous System Agents desmopressi n 0.2 mg tablet 05-21 00:00: 00 03-07 23:59 :00 No [id number] 2 tablet AT BEDTIME 2 tablet AT BEDTIME (route: oral) Alternate Route: BY MOUTH. Med Classific ation: Endocrine Depakote 500 mg tablet,pedro luis yed release 05-21 00:00: 00 Yes [id number] 1 tablet TWICE A DAY 1 tablet TWICE A DAY (route: oral) Alternate Route: BY MOUTH. Med Classific ation: Central Nervous System Agents lisinopril 2.5 mg tablet 07-09 00:00: 00 Yes [id number] 1 tablet EVERY AM 1 tablet EVERY AM (route: oral) Med Classific ation: Cardiovas cular Therapy Agents lithium carbonate 300 mg capsule 07-09 00:00: 00 Yes [id number] 1 capsule EVERY AM 1 capsule EVERY AM (route: oral) Med Classific ation: Central Nervous System Agents lithium carbonate 300 mg capsule 07-09 00:00: 00 Yes [id number] 2 capsule EVERY PM 2 capsule EVERY PM (route: oral) Med Classific ation: Central Nervous System Agents omeprazole 20 mg capsule,del ayed release 07-09 00:00: 00 Yes [id number] 1 capsule EVERY AM 1 capsule EVERY AM (route: oral) Med Classific ation: Gastroint estinal Therapy Agents oxybutynin chloride 5 mg tablet 07-09 00:00: 00 Yes [id number] 2 tablet EVERY PM 2 tablet EVERY PM (route: oral) Med Classific ation: Genitouri nary Therapy Vitamin D3 25 mcg (1,000 unit) capsule 09-03 00:00: 00 Yes [id number] 1 mcg EVERY AM 1 mcg EVERY AM (route: oral) Med Classific ation: Electroly te Balance-N utritiona l Products doxycycline hyclate 100 mg capsule 12-01 00:00: 00 01-04 23:59 :00 No [id number] 1 capsule 2 TIMES DAILY 1 capsule 2 TIMES DAILY (route: oral) Med Classific ation: Anti-Infe ctive Agents cephalexin 500 mg capsule 11-02 00:00: 00 11-05 23:59 :00 No [id number] 1 capsule 4 TIMES DAILY 1 capsule 4 TIMES DAILY (route: oral) Med Classific ation: Anti-Infe ctive Agents desmopressi n 0.2 mg tablet 2021-04 00:00: 00 Yes [id number] 3 tablet BEDTIME 3 tablet BEDTIME (route: [...] AWARENESS FOR SAFETY AND WILL NOTIFY CLINICAL FREIGHT CALLER AND PHYSICIAN/PROVIDER WITH ANY CHANGE IN CONDITION. [code = SKILLED NURSE WILL MAINTAIN SITUATIONAL AWARENESS FOR SAFETY AND WILL NOTIFY CLINICAL FREIGHT CALLER AND PHYSICIAN/PROVIDER WITH ANY CHANGE IN CONDITION.] [...] CARE WILL BE ESTABLISHED THAT MEETS PATIENT'S [facility] NEEDS AND INCLUDES PATIENT GOAL FOR HOME [...] End Date/Time Encounter Type Admission Type Attending [facility] Care Department Encounter ID Discharge Date Discharge Status Discharge Condition Discharge Reason Percent Goals Met 2017-11-16 00:00:00 2024-06-11 00:00:00 Outpatient RECERTIFIC AMY [facility] [id number] 02.16
[2024-05-18 20:27] LABS: Appearance Urine Cloudy; Color Urine Yellow; Glucose Urine UA Negative (Negative); Leukocyte Esterase Urine Large (3+) (Negative); Nitrite Urine Negative (Negative); UMIC TRIGGER UACC YES; Urine Blood Moderate (2+) (Negative); Urine Ketones Negative (Negative); Urine Protein 30 (1+) mg/dL (Neg-Trace)
[2024-05-18 20:36] LABS: Bacteria Urine 4+ (None Seen); Squamous Epithelial Cell Urine 0-2 /HPF (0-2); UACC Culture Trigger YES; WBC Urine >50 /HPF (0-5)
[2024-05-18 22:09] LABS: IDNOW Serial# 6674DD1D; Strep A Nucleic Acid Negative (Negative)
[2024-05-18 22:23] LABS: Influenza A PCR NEGATIVE (Negative); Influenza B PCR NEGATIVE (Negative); Resp Syncy Virus RNA Qual PCR NEGATIVE (Negative); SARS COV2 PCR INHOUSE NEGATIVE (Negative)
[2024-05-18] MEDS: Phenazopyridine HCL 200 MG TABLET PO (23:58)
[2024-05-18] MEDS: Nitrofurantoin Monohyd/M-Cryst 100 MG CAPSULE PO (23:58)
[2024-05-19 00:01] VITALS: BP 135/84; PULSE 107; RESP 20; TEMP 37.1; O2SAT 95
[2024-05-19 00:02] VITALS: BP 135/84; PULSE 107; RESP 20; TEMP 37.1; O2SAT 95
== END 2024-05-19 00:04 | disposition home or self-care (01) ==
PROVIDERS: Physician Assistant; Emergency Provider Emergency Medicine; PCP Internal Medicine
DX: N39.0 Urinary tract infection, site not specified (principal); R32 Unspecified urinary incontinence; R30.0 Dysuria; Z03.818 Encounter for observation for suspected exposure to other biological agents ruled out
CPT/HCPCS: 0241U; 81001; 87086; 87088; 87186; 87651; 99283

== ENCOUNTER 2024-06-02 13:21 | Outpatient (REF) | payer OTHER, SELFPAY ==
[2024-06-02 13:33] LABS: MANUAL DIFF FLAG NO
[2024-06-02 13:43] LABS: Basophils Percent Auto 0.4 % (0-2); Eosinophils Absolute Auto 0.2 X10*3/uL (0.0-0.4); Eosinophils Percent Auto 2.7 % (0-4); Hematocrit 40.1 % (37.0-47.0); Hemoglobin 13.1 g/dl (12.0-16.0); Imm Gran Abs Auto 0.05 X10*3/uL (0.00-0.03); Imm Gran Pct Auto 0.7 % (0.0-0.4); Lymphocytes Absolute Auto 2.3 X10*3/uL (1.2-4.9); Lymphocytes Percent Auto 31.5 % (20-40); Mean Corpuscular HGB Conc 32.7 g/dl (31.0-35.0); Mean Corpuscular Hemoglobin 30.2 pg (27.0-33.0); Mean Corpuscular Volume 92.4 fL (80.0-98.0); Mean Platelet Volume 8.8 fL (9.4-12.3); Monocytes Absolute Auto 0.3 X10*3/uL (0.1-1.2); Monocytes Percent Auto 4.5 % (2-11); Neutrophils Absolute Auto 4.4 x10*3/uL (2.0-8.3); Neutrophils Percent Auto 60.2 % (45-73); Platelet Count 302 X10*3/uL (160-400); Red Blood Count 4.34 X10*6/uL (4.20-5.50); Red Cell Distribution Width 13.3 % (11.0-16.0); White Blood Count 7.3 X10*3/uL (4.8-10.8)
--- OUTSIDE RECORDS SUMMARY | 2024-06-02 16:26 | XMS_ITS | Clinical Summary ---
Author Organization [facility] Address [address] [place] [address] Phone Care Team Providers Care Asphalt Worker Name Role Phone Carley Maguire MD Primary Care Provider [phone] Allergies Active Allergy Reactions Criticality Noted Date Comments Lamotrigine Swelling 07/21/2011 Quetiapine Fumarate Swelling 07/21/2011 Medications bisacodyL (DULCOLAX) 5 mg EC tablet Take 2 tablets by mouth right before your first dose of liquid prep. Active clonazePAM (KlonoPIN) 1 mg tablet Take [...] TWICE A DAY Active polyethylene glycol (GoLYTELY) 236-22.74-6.7 4 -5.86 gram solution Take 240 mL by [...] 30 g 03/03/20 24 025 Active lisinopriL (PRINIVIL,ZES TRIL) 2.5 mg tablet TAKE 1 TABLET BY MOUTH EVERY DAY 90 tablet 04/06/20 24 Active omeprazole (PriLOSEC) [address] capsule Take 1 capsule (20 mg total) by mouth 1 (one) time each day. 90 capsule 1 04/28/19 25 Active carvediloL (COREG) 12.5 mg tablet TAKE 1 TABLET BY MOUTH TWICE A DAY WITH FOOD 60 tablet 05/11/19 25 Active cholecalcifer ol (VITAMIN D-3) 25 mcg (1,000 unit) capsule Take 1 capsule (1,000 Units total) by mouth 1 (one) time each day. 11 capsule 05/22/19 25 Active carvediloL (COREG) 12.5 mg tablet TAKE 1 TABLET BY MOUTH TWICE A DAY WITH FOOD 025 Discontinued cholecalcifer ol (VITAMIN D-3) 25 mcg (1,000 unit) capsule TAKE 1 CAPSULE BY MOUTH EVERY DAY 025 Discontinued(R eorder) Active Problems Problem Noted Date Diagnosed Date Post-traumatic stress disorder, unspecified 05/10 Primary hypertension 05/28/2024 Hx of malignant neoplasm of female breast 2024 Ductal carcinoma in situ (DC IS) of [...] 2020 Primary osteoarthritis of both knees 06/01/2020 Nicotine dependence, unspecified, uncomplicated 11/27/2019 Postmenopausal bleeding 08/31/2018 Dilated cardiomyopathy 07/18/2017 Overview (01/16/2024): Cardiac cath 07/11/2017 [facility] - nonobstructive CAD Hypertriglyceridemia 06/17/2017 Tubular adenoma of colon 04/15/2017 Gastro-esophageal reflux disease without esophag itis 11/19/2016 Incisional hernia 11/16/2013 Ventral hernia 07/06/2012 Overview (01/16/2024): S/p repair Leukopenia 04/14/2012 Overview (01/16/2024): Clozaril was tapered off but she developed uncontrolled schizoaffective symptoms; Clozaril restarted 12/2012 Alcohol abuse, in remission 01/10/2012 Morbid obesity 07/21/2011 Schizoaffective disorder, bipolar type 2 Encounters Date Type Department Care Team Description 05/28/2024 Billing Patient Not Present Adult Medicine [address] [phone] Carley Maguire MD Schizoaffective disorder, bipolar type (CMS/HCC) (Primary Dx); Post-traumatic stress disorder, unspecified; Primary hypertension; Nicotine dependence, uncomplicated, unspecified nicotine product type; Gastro-esophageal reflux disease without esophagitis; Hx of malignant neoplasm of female breast 05/28/2024 Billing Patient Not Present Adult Medicine [address] [phone] Carley Maguire MD Schizoaffective disorder, bipolar type (CMS/HCC) (Primary Dx) 04/24/2024 7:24 AM EST - 04/24/2024 11:59 PM EST Hospital En[facility] [address] [phone] 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 Discharge Disposition: Home or Self Care 04/23/2024 Telephone Adult Medicine [address] [phone] Carley Maguire MD PT-1 04/23/2024 Telephone Adult [address] [phone] Carley Maguire MD pt-1 04/23/2024 Telephone Adult [address] [phone] Carley Maguire MD PT-1 04/23/2024 Telephone Adult [address] [phone] Carley Maguire MD pt-1 03/03/2024 2:20 PM EST Office [facility] [address] [place] [address] Brittany Garcia MD 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 (Primary Dx); Hidradenitis suppurativa from Last 3 Months Immunizations Name Administration Dates Next Due Influenza Quadravalent, MDCK , 0.5ml, with preservative (Flucelvax) 6mo and older 01/16/2018,01/07/2017 [employer] SARS-CoV-2 COVID-19, mRNA, LNP-S, preservative free 08/21/2020,07/31/2020 [...] History Medical History Date Comments Bipolar illness ([facility]/HCC) 07/21/2011 DX:Bip olar illness (HCC) Morbid obesity (CMS/HCC) 07/21/2011 DX:Morb id obesity (HCC) Schizoaffective disorder, bi polar type ([facility]/HCC) 07/21/2011 DX:Schizoaffective disorder, bipolar type (HCC) Historical Medical DX 01/10/2012 DX:Alcohol abuse, in remission Leukopenia 04/14/2012 DX:Leukopenia; C OMMENT: Clozaril was tapered off but she developed uncontrolled schizoaffective symptoms; Clozaril restarted 12/2012 Historical Medical DX 07/06/2012 DX:Ventral hernia; COMMENT: S/p repair Gastroesophageal reflux disease 11/19/2016 DX:Gastroesophageal reflux disease Tubular adenoma of colon 04/15/2017 DX:Tubu lar adenoma of colon Hypertriglyceridemia 06/17/2017 DX:Hypertri glyceridemia Dilated cardiomyopathy ([facility]/HCC) 07/18/2017 DX:Dilated cardiomyopathy ([facility]); COMMENT: Cardiac cath 07/11/2017 [facility] - nonobstructive CAD Chronic systolic heart failure (CMS/HCC) 018 DX:Chronic systolic heart failure ([facility]); COMMENT: Neg cardiac cath (nonobstructive CAD) 07/11/17 at [facility] Postmenopausal bleeding 08/31/2018 DX:Postm enopausal bleeding 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 DX:Infiltrating ductal carci noma of breast ([facility]); COMMENT: left Hepatitis C antibody test positive [...] 12:45 PM EST Office Visit Adult Medicine [address] [phone] Joshua Hampton PA [address] [place] [address] 09/01/2024 2:20 PM EDT Office Visit [facility] [address] [place] [address] Brittany Garcia MD [address] [place] [address] Health Maintenance Due Date Last Done Comments [...] situ (DCIS) of right breast with comedonecrosis HM ANNUAL BMP BLOOD TEST Routine 08/16/2023 LIPID [...] recommended in 1 year. Mammo Location: [facility], [address] [place] [address] -------- FINAL REPORT -------- Dictated By: Anastacio Pathak Dictated Date: 04/24/2024 08:14 ET Assigned Physician: Anastacio Pathak Reviewed and Electronically Signed By: Anastacio Pathak Signed Date: 04/24/2024 08:26 ET Workstation ID: [id number] Transcribed By: Self Edit Transcribed Date: 04/24/2024 [...] and CC projection is performed in the Blog[employer]Ne 2000-D unit. ??Computer aided detection utilizing the [...] MLO and CC projection is performed in theThyme Labsographe 2000-D unit. Computer aided detection utilizing the iCADsystem was utilized. FINDINGS: The breasts are seen [...] recommended in 1 year. Mammo Location: [facility], [address] [place] [address] -------- FINAL REPORT -------- Dictated By: Anastacio Pathak Dictated Date: 04/24/2024 08:14 ET Assigned Physician: Anastacio Pathak Reviewed and Electronically Signed By: Anastacio Pathak Signed Date: 04/24/2024 08:26 ET Workstation ID: [id number] Transcribed By: Self Edit Transcribed Date: 04/24/2024 08:14 ET Brittany Garcia MD IMG BI PROCEDURES Final Result * Annual BMP Blood Test (08/16/2023) Pathologist [facility] Annual BMP Blood Test abstracted Historical Provider HEALTH MAINTENANCE Final Result * (ABNORMAL) Lipid panel (08/16/2023) LDL/HDL Ratio 6(A) 0 - 4 Triglycerides 271(A) 0 - 150 mg/dL Cholesterol 174 0 - 200 mg/dL HDL 31(A) >=40 mg/dL LDL Cholesterol 89 0 - 100 mg/dL Blood Venous blood specimen / Unknown Result [facility] Historical Provider MD LAB BLOOD ORDERABLES Hollie l Result * Cervical Cancer Screening: HPV (03/21/2022) [facility] Cervical Cancer Screening: HPV negative interpretation abstracted Historical Provider MD HEALTH MAINTENANCE Final Result * Hepatitis C Screening (01/04/2022) [facility] Hepatitis C Screening abstracted Historical Provider MD HEALTH MAINTENANCE Final Result * DXA BONE [...] classified as having normal bone density. [facility] Department of Internal Medicine recommends using National [...] beclassified as having normal bone density. [facility] Department of Internal Medicine recommendsusing National Osteoporosis [...] or over-estimation of fracture risk by FRAX. us Carlee HILTON IMG DXA PROCEDURES Final Result from Last 3 Months or Most Recently Relevant to Health Maintenance Insurance [facility] [place] [address] Care Teams Asphalt Worker Relationship Specialty Start Date End Date Carley Maguire MD [address] [place] [address] PCP - General Internal Medicine 11/13/21
--- OUTSIDE RECORDS SUMMARY | 2024-06-02 16:26 | XMS_ITS | Encounter Summary ---
Author Organization [facility] Address [address] [place] [address] Care Team Providers Care Dining Manager Name Role Phone Carley Maguire MD Primary Care Provider [phone] Encounter Details Date Type Department Care Team ([facility] st Contact Info) Description 05/28/2024 Billing Patient Not Present Adult Medicine [address] [phone] Carley Maguire MD [address] [place] [address] Schizoaffective disorder, bipolar type (CMS/HCC) (Primary Dx) Social History Tobacco Use Types Packs/Day Years [...] as of this encounter Progress Notes * Emily Asher MA - 05/28/2024 2:38 PM EST Start of Care Date: 11/16/2017 Date of certification period: 04/13/2024-06/11/2024 Date of service = signature date 04/22/24 Hospice patient: NO Home Care Agency: [facility] Order faxed, entered and copy sent to scan documented in this encounter Plan of Treatment Upcoming Encounters Date Type Department Care Team (Late st Contact Info) Description 06/03/2024 12:45 PM EST Office Visit Adult Medicine [facility] [address] [place] [address] Joshua Hampton PA [address] [place] [address] 09/01/2024 2:20 PM EDT Office Visit [facility] [address] [place] [phone] Brittany Garcia MD [address] [place] [address] documented as of this encounter Visit Diagnoses Diagnosis Schizoaffective disorder, bipolar type (CMS/HCC)- Primary Schizoaffective disorder, unspecified condition documented in this encounter Care Teams Dining Manager Relationship Specialty Start Date End Date Carley Maguire MD [address] [place] [address] PCP - General Internal Medicine 11/13/21 documented as of this encounter
--- OUTSIDE RECORDS SUMMARY | 2024-06-02 16:26 | XMS_ITS | Encounter Summary ---
Author Organization [facility] Address [address] [place] [address] Care Team Providers Care Ventilating Expert Name Role Phone Carley Maguire MD Primary Care Provider [phone] Reason for Visit * Reason Comments Home Health Cert Encounter Details Date Type Department Care Team ([facility] st Contact Info) Description 05/28/2024 Billing Patient Not Present Adult Medicine [address] [phone] Carley Maguire MD [address] [place] [address] Schizoaffective disorder, bipolar type (CMS/HCC) (Primary Dx); Post-traumatic stress disorder, unspecified; Primary hypertension; Nicotine dependence, uncomplicated, unspecified nicotine product type; Gastro-esophageal reflux disease without esophagitis; Hx of malignant neoplasm of female breast Social History Tobacco Use Types Packs/Day Years [...] Notes * Emily Asher MA - 05/28/2024 2:52 PM EST Start of Care Date: Date of certification period: 02/13/24-04/12/24 Date of service = signature date 03/22/24 Hospice patient: No Home Care Agency: [facility] Order faxed, entered and copy sent to scan documented in this encounter Plan of Treatment Upcoming Encounters Date Type Department Care Team (Late st Contact Info) Description 06/03/2024 12:45 PM EST Office Visit Adult Medicine [facility] [address] [place] [address] Joshua Hampton PA [address] [place] [address] 09/01/2024 2:20 PM EDT Office Visit [facility] [address] [place] [phone] Brittany Garcia MD [address] [place] [address] documented as of this encounter Visit Diagnoses Diagnosis Schizoaffective disorder, bipolar type (CMS/HCC)- Primary Schizoaffective disorder, unspecified condition Post-traumatic stress disorder, unspecified Primary hypertension Unspecified essential hypertension Nicotine dependence, uncomplicated, unspecified nicotine product type Gastro-esophageal reflux disease without esophagitis Hx of malignant neoplasm of female breast documented in this encounter Care Teams Ventilating Expert Relationship Specialty Start Date End Date Carley Maguire MD [address] [place] [address] PCP - General Internal Medicine 11/13/21 documented as of this encounter
--- OUTSIDE RECORDS SUMMARY | 2024-06-02 16:26 | XMS_ITS | Clinical Summary ---
Author Organization [facility] Address [address] [place] [address] Care Team Providers Care Automobile And Property Underwriter Name Role Phone Carley Maguire MD Primary Care Provider [phone] Allergies Active Allergy Reactions Criticality Noted Date [...] age to complete this topic Care Teams Automobile And Property Underwriter Relationship Specialty Start Date End Date Carley Maguire MD [address] [place] [address] PCP - General Internal Medicine 06/04/23
--- OUTSIDE RECORDS SUMMARY | 2024-06-02 16:26 | XMS_ITS | Clinical Summary ---
Author Organization Unknown Care Team Providers Care Bagel Maker Name Role Phone CHAZ DEL RIO, MADI Unavailable Unavailable KATHIE LIMA, AMY Unavailable Unavailable OTONIEL LIMA, YAHAIRA Unavailable Unavailable Payers Payer Name Policy Type Policy Number Effective Date Expira tion Date [facility] ([facility] [id number] MEDICAID [place] [id number] Problems Condition Name Condition Details Condition Category [...] 1 mg tablet 07-09 00:00: 00 Yes [id number] 1 tablet EVERY AM 1 tablet EVERY AM (route: oral) Med Classific ation: Antineopl astics carvedilol 12.5 mg tablet 07-09 00:00: 00 Yes [id number] 1 tablet Twice a day 1 tablet Twice a day (route: oral) Med Classific ation: Cardiovas cular Therapy Agents clonazepam 1 mg tablet 06-06 00:00: 00 Yes [id number] 1 tablet TWICE A DAY DAILY 1 tablet TWICE A DAY DAILY (route: oral) Alternate Route: BY MOUTH. Med Classific ation: Central Nervous System Agents clonazepam 1 mg tablet 07-09 00:00: 00 08-13 23:59 :00 No [id number] 1 tablet PRN 1 tablet PRN (route: oral) Med Classific ation: Central Nervous System Agents clozapine 100 mg tablet 05-13 00:00: 00 Yes [id number] 3 tablet AT BEDTIME 3 tablet AT BEDTIME (route: oral) Alternate Route: BY MOUTH. Med Classific ation: Central Nervous System Agents desmopressi n 0.2 mg tablet 05-21 00:00: 00 03-07 23:59 :00 No [id number] 2 tablet AT BEDTIME 2 tablet AT BEDTIME (route: oral) Alternate Route: BY MOUTH. Med Classific ation: Endocrine Depakote 500 mg tablet,pedro luis yed release 05-21 00:00: 00 Yes [id number] 1 tablet TWICE A DAY 1 tablet TWICE A DAY (route: oral) Alternate Route: BY MOUTH. Med Classific ation: Central Nervous System Agents lisinopril 2.5 mg tablet 07-09 00:00: 00 Yes [id number] 1 tablet EVERY AM 1 tablet EVERY AM (route: oral) Med Classific ation: Cardiovas cular Therapy Agents lithium carbonate 300 mg capsule 07-09 00:00: 00 Yes [id number] 1 capsule EVERY AM 1 capsule EVERY AM (route: oral) Med Classific ation: Central Nervous System Agents lithium carbonate 300 mg capsule 07-09 00:00: 00 Yes [id number] 2 capsule EVERY PM 2 capsule EVERY PM (route: oral) Med Classific ation: Central Nervous System Agents omeprazole 20 mg capsule,del ayed release 07-09 00:00: 00 Yes [id number] 1 capsule EVERY AM 1 capsule EVERY AM (route: oral) Med Classific ation: Gastroint estinal Therapy Agents oxybutynin chloride 5 mg tablet 07-09 00:00: 00 Yes [id number] 2 tablet EVERY PM 2 tablet EVERY PM (route: oral) Med Classific ation: Genitouri nary Therapy Vitamin D3 25 mcg (1,000 unit) capsule 09-03 00:00: 00 Yes [id number] 1 mcg EVERY AM 1 mcg EVERY AM (route: oral) Med Classific ation: Electroly te Balance-N utritiona l Products doxycycline hyclate 100 mg capsule 12-01 00:00: 00 01-04 23:59 :00 No [id number] 1 capsule 2 TIMES DAILY 1 capsule 2 TIMES DAILY (route: oral) Med Classific ation: Anti-Infe ctive Agents cephalexin 500 mg capsule 11-02 00:00: 00 11-05 23:59 :00 No [id number] 1 capsule 4 TIMES DAILY 1 capsule 4 TIMES DAILY (route: oral) Med Classific ation: Anti-Infe ctive Agents desmopressi n 0.2 mg tablet 2021-04 00:00: 00 Yes [id number] 3 tablet BEDTIME 3 tablet BEDTIME (route: [...] AWARENESS FOR SAFETY AND WILL NOTIFY CLINICAL EGG WORKER AND PHYSICIAN/PROVIDER WITH ANY CHANGE IN CONDITION. [code = SKILLED NURSE WILL MAINTAIN SITUATIONAL AWARENESS FOR SAFETY AND WILL NOTIFY CLINICAL EGG WORKER AND PHYSICIAN/PROVIDER WITH ANY CHANGE IN CONDITION.] [...] Goal - TAKE LESS MED ICATION Goal 2023-10-14 Patient Goal - T O [...] AND DECREASE MY NEED FOR MEDICATION. Goal 2020-10-27 Patient Goal - T O [...] AND DECREASE MY NEED FOR MEDICATION. Goal 2019-11-04 Patient Goal - TAKE LESS [...] Goal - TAKE LESS MED ICATION Goal Provider Goal - A PLAN OF [...] 00:00:00 2024-06-11 00:00:00 Outpatient RECERTIFIC AMY CURRY [facility] [id number] 02.16
--- OUTSIDE RECORDS SUMMARY | 2024-06-02 16:26 | XMS_ITS | Clinical Summary ---
Author Organization Unknown Care Team Providers Care Hvac Project Engineer Name Role Phone CHAZ DEL RIO, MADI Unavailable Unavailable KATHIE LIMA, AMY Unavailable Unavailable OTONIEL LIMA, YAHAIRA Unavailable Unavailable Payers Payer Name Policy Type Policy Number Effective Date Expira tion Date [facility] ([facility] [id number] MEDICAID [place] [id number] Problems Condition Name Condition Details Condition Category [...] 1 mg tablet 07-09 00:00: 00 Yes [id number] 1 tablet EVERY AM 1 tablet EVERY AM (route: oral) Med Classific ation: Antineopl astics carvedilol 12.5 mg tablet 07-09 00:00: 00 Yes [id number] 1 tablet Twice a day 1 tablet Twice a day (route: oral) Med Classific ation: Cardiovas cular Therapy Agents clonazepam 1 mg tablet 06-06 00:00: 00 Yes [id number] 1 tablet TWICE A DAY DAILY 1 tablet TWICE A DAY DAILY (route: oral) Alternate Route: BY MOUTH. Med Classific ation: Central Nervous System Agents clonazepam 1 mg tablet 07-09 00:00: 00 08-13 23:59 :00 No [id number] 1 tablet PRN 1 tablet PRN (route: oral) Med Classific ation: Central Nervous System Agents clozapine 100 mg tablet 05-13 00:00: 00 Yes [id number] 3 tablet AT BEDTIME 3 tablet AT BEDTIME (route: oral) Alternate Route: BY MOUTH. Med Classific ation: Central Nervous System Agents desmopressi n 0.2 mg tablet 05-21 00:00: 00 03-07 23:59 :00 No [id number] 2 tablet AT BEDTIME 2 tablet AT BEDTIME (route: oral) Alternate Route: BY MOUTH. Med Classific ation: Endocrine Depakote 500 mg tablet,pedro luis yed release 05-21 00:00: 00 Yes [id number] 1 tablet TWICE A DAY 1 tablet TWICE A DAY (route: oral) Alternate Route: BY MOUTH. Med Classific ation: Central Nervous System Agents lisinopril 2.5 mg tablet 07-09 00:00: 00 Yes [id number] 1 tablet EVERY AM 1 tablet EVERY AM (route: oral) Med Classific ation: Cardiovas cular Therapy Agents lithium carbonate 300 mg capsule 07-09 00:00: 00 Yes [id number] 1 capsule EVERY AM 1 capsule EVERY AM (route: oral) Med Classific ation: Central Nervous System Agents lithium carbonate 300 mg capsule 07-09 00:00: 00 Yes [id number] 2 capsule EVERY PM 2 capsule EVERY PM (route: oral) Med Classific ation: Central Nervous System Agents omeprazole 20 mg capsule,del ayed release 07-09 00:00: 00 Yes [id number] 1 capsule EVERY AM 1 capsule EVERY AM (route: oral) Med Classific ation: Gastroint estinal Therapy Agents oxybutynin chloride 5 mg tablet 07-09 00:00: 00 Yes [id number] 2 tablet EVERY PM 2 tablet EVERY PM (route: oral) Med Classific ation: Genitouri nary Therapy Vitamin D3 25 mcg (1,000 unit) capsule 09-03 00:00: 00 Yes [id number] 1 mcg EVERY AM 1 mcg EVERY AM (route: oral) Med Classific ation: Electroly te Balance-N utritiona l Products doxycycline hyclate 100 mg capsule 12-01 00:00: 00 01-04 23:59 :00 No [id number] 1 capsule 2 TIMES DAILY 1 capsule 2 TIMES DAILY (route: oral) Med Classific ation: Anti-Infe ctive Agents cephalexin 500 mg capsule 11-02 00:00: 00 11-05 23:59 :00 No [id number] 1 capsule 4 TIMES DAILY 1 capsule 4 TIMES DAILY (route: oral) Med Classific ation: Anti-Infe ctive Agents desmopressi n 0.2 mg tablet 2021-04 00:00: 00 Yes [id number] 3 tablet BEDTIME 3 tablet BEDTIME (route: [...] AWARENESS FOR SAFETY AND WILL NOTIFY CLINICAL MEDICAL DELIVERY DRIVER AND PHYSICIAN/PROVIDER WITH ANY CHANGE IN CONDITION. [code = SKILLED NURSE WILL MAINTAIN SITUATIONAL AWARENESS FOR SAFETY AND WILL NOTIFY CLINICAL MEDICAL DELIVERY DRIVER AND PHYSICIAN/PROVIDER WITH ANY CHANGE IN CONDITION.] [...] CARE WILL BE ESTABLISHED THAT MEETS PATIENT'S LONG TERM NEEDS AND INCLUDES PATIENT GOAL FOR HOME [...] End Date/Time Encounter Type Admission Type Attending [facility] Care Department Encounter ID Discharge Date Discharge Status Discharge Condition Discharge Reason Percent Goals Met 2017-11-16 00:00:00 2024-06-11 00:00:00 Outpatient RECERTIFIC AMY CURRY [facility] [id number] 02.16
== END 2024-06-02 13:22 | disposition home or self-care (01) ==
LOC: HO.LAB 13:21
PROVIDERS: PCP Internal Medicine; Visit Provider Psychiatry & Neurology Psychiatry
DX: Z79.899 Other long term (current) drug therapy (principal)
CPT/HCPCS: 36415; 85025

== ENCOUNTER 2024-07-02 15:08 | Outpatient (REF) | payer OTHER, SELFPAY ==
[2024-07-02 15:20] LABS: MANUAL DIFF FLAG NO
[2024-07-02 17:08] LABS: Basophils Absolute Auto 0.1 X10*3/uL (0.0-0.2); Basophils Percent Auto 0.7 % (0-2); Eosinophils Absolute Auto 0.3 X10*3/uL (0.0-0.4); Eosinophils Percent Auto 3.8 % (0-4); Hematocrit 40.5 % (37.0-47.0); Hemoglobin 13.1 g/dl (12.0-16.0); Imm Gran Abs Auto 0.03 X10*3/uL (0.00-0.03); Imm Gran Pct Auto 0.4 % (0.0-0.4); Lymphocytes Absolute Auto 2.6 X10*3/uL (1.2-4.9); Lymphocytes Percent Auto 31.7 % (20-40); Mean Corpuscular HGB Conc 32.3 g/dl (31.0-35.0); Mean Corpuscular Hemoglobin 29.5 pg (27.0-33.0); Mean Corpuscular Volume 91.2 fL (80.0-98.0); Mean Platelet Volume 9.5 fL (9.4-12.3); Monocytes Absolute Auto 0.4 X10*3/uL (0.1-1.2); Monocytes Percent Auto 5.4 % (2-11); Neutrophils Absolute Auto 4.8 x10*3/uL (2.0-8.3); Platelet Count 274 X10*3/uL (160-400); Red Blood Count 4.44 X10*6/uL (4.20-5.50); Red Cell Distribution Width 12.8 % (11.0-16.0); White Blood Count 8.2 X10*3/uL (4.8-10.8)
[2024-07-06 09:29] LABS: Clozapine (Clozaril) 353 mcg/L; Norclozapine 131 mcg/L (25-400)
== END 2024-07-02 15:09 | disposition home or self-care (01) ==
LOC: HO.LABR 15:08
PROVIDERS: PCP Internal Medicine; Visit Provider Psychiatry & Neurology Psychiatry
DX: Z79.899 Other long term (current) drug therapy (principal)
CPT/HCPCS: 36415; 80159; 85025

== ENCOUNTER 2024-09-03 14:29 | Outpatient (REF) | payer OTHER, SELFPAY ==
[2024-09-03 14:46] LABS: MANUAL DIFF FLAG NO
[2024-09-03 15:07] LABS: Basophils Absolute Auto 0.1 X10*3/uL (0.0-0.2); Basophils Percent Auto 0.7 % (0-2); Eosinophils Absolute Auto 0.3 X10*3/uL (0.0-0.4); Eosinophils Percent Auto 3.3 % (0-4); Hematocrit 40.5 % (37.0-47.0); Hemoglobin 13.2 g/dl (12.0-16.0); Imm Gran Abs Auto 0.04 X10*3/uL (0.00-0.03); Imm Gran Pct Auto 0.4 % (0.0-0.4); Lymphocytes Absolute Auto 2.5 X10*3/uL (1.2-4.9); Lymphocytes Percent Auto 27.7 % (20-40); Mean Corpuscular HGB Conc 32.6 g/dl (31.0-35.0); Mean Corpuscular Hemoglobin 29.5 pg (27.0-33.0); Mean Corpuscular Volume 90.4 fL (80.0-98.0); Mean Platelet Volume 9.1 fL (9.4-12.3); Monocytes Absolute Auto 0.6 X10*3/uL (0.1-1.2); Neutrophils Absolute Auto 5.5 x10*3/uL (2.0-8.3); Neutrophils Percent Auto 60.9 % (45-73); Platelet Count 266 X10*3/uL (160-400); Red Blood Count 4.48 X10*6/uL (4.20-5.50); Red Cell Distribution Width 12.9 % (11.0-16.0); White Blood Count 9.1 X10*3/uL (4.8-10.8)
== END 2024-09-03 14:30 | disposition home or self-care (01) ==
LOC: HO.LABR 14:29
PROVIDERS: PCP Internal Medicine; Visit Provider Psychiatry & Neurology Psychiatry
DX: Z79.899 Other long term (current) drug therapy (principal)
CPT/HCPCS: 36415; 85025

== ENCOUNTER 2024-12-18 16:47 | Outpatient (REF) | payer OTHER, SELFPAY ==
[2024-12-18 17:05] LABS: MANUAL DIFF FLAG NO
[2024-12-18 17:09] LABS: Hematocrit 39.2 % (37.0-47.0); Hemoglobin 12.6 g/dl (12.0-16.0); Imm Gran Abs Auto 0.02 X10*3/uL (0.00-0.03); Imm Gran Pct Auto 0.2 % (0.0-0.4); Lymphocytes Absolute Auto 2.5 X10*3/uL (1.2-4.9); Mean Corpuscular HGB Conc 32.1 g/dl (31.0-35.0); Mean Corpuscular Hemoglobin 30.1 pg (27.0-33.0); Mean Corpuscular Volume 93.6 fL (80.0-98.0); NRBC Abs Auto 0.000 X10*3/uL (0.0-0.012); NRBC Pct Auto 0.0 /100WBC (0.0-0.2); Platelet Count 250 X10*3/uL (160-400); Red Blood Count 4.19 X10*6/uL (4.20-5.50); White Blood Count 10.2 X10*3/uL (4.8-10.8)
--- OUTSIDE RECORDS SUMMARY | 2024-12-18 17:59 | XMS_ITS | Clinical Summary ---
Author Organization [facility] Address [address] [place] [address] Care Team Providers Care Healthcare Technician Name Role Phone Carley Maguire MD Primary Care Provider [phone] Allergies Active Allergy Reactions Criticality Noted Date [...] 81 06/04/2023 11:57 AM EST Temperature 36.3 C (97.3 F) 06/04/2023 11:57 AM EST Respiratory Rate - - Oxygen Saturation 98% [...] Depression Screening 1981 Preventative Health Evaluation 08/06/1987 Cervical Cancer Screening (Pap Smear) 1990 Colon Cancer Screening (Colonoscopy) 2014 Breast Cancer Screening (Mammogram) 08/06/2019 Shingrix-Zoster Vaccine (1 o f 2) 08/06/2019 COVID-19 Vaccine (3 - 2024-2 6 season) 2024 08/21/2020, 07/31/2020 Influenza Vaccine (#1) 2024 8, 01/07/2017 DTap / Tdap / Td (3 - Td or Tdap) 02/22/2033 02/22/2023, 01/07/2012 RSV Ped < 20 months Aged Out No longe r eligible based on patient's age to complete this topic Care Teams Healthcare Technician Relationship Specialty Start Date End Date Carley Maguire MD [address] [place] [address] PCP - General Internal Medicine 06/04/23
--- OUTSIDE RECORDS SUMMARY | 2024-12-18 17:59 | XMS_ITS | Encounter Summary ---
Author Organization [facility] Address [address] [place] [address] Care Team Providers Care Bag Tester Name Role Phone Carley Maguire MD Primary Care Provider [phone] Reason for Visit * Reason Onset Date Comments faxed vna order 12/11/2024 Jonathan Sahu [facility] e Health Cert [id number] Encounter Details Date Type Department Care Team (Late st Contact Info) Description 12/11/2024 Telephone Adult Medicine [address] [phone] Carley Maguire MD [address] [place] [address] Social History Tobacco Use Types Packs/Day Years Used Date Smoking Tobacco: Every Day Cigarettes Smokeless Tobacco: Never Alcohol Use Standard Drinks/Week Comments No 0 (1 standard drink = 0.6 oz pur e alcohol) Interpersonal Safety Answer Date Record ed Physical Abuse 08/04/2024 Verbal Abuse 08/04/2024 Comments No Sex and Gender Information Value Date Recorded Sex Assigned at Female 03/04/2024 2:27 PM EST Legal Sex Female 2:13 AM EST Gender Identity Female 03/04/2024 2:27 PM EST Sexual Orientation Straight 03/04/2024 2: 27 PM EST documented as of this encounter Progress Notes * Christine Mcrae MA - 12/17/2024 1:02 PM EDT Order has been scanned,signed and faxed to Fax to [phone] * Charli Darby - 12/16/2024 4:21 PM EDT Madeleine from [facility] stating that she needs this Home health Cert signed by the end of this week. Please Fax to [phone] * Dolly Geller - 12/11/2024 1:23 PM EDT Faxed order received from [facility] Home Health Cert [id number] please sign and fax to [phone]. documented in this encounter Plan of Treatment Not on file documented as of this encounter Visit Diagnoses Not on filedocumented in this encounter Care Teams Bag Tester Relationship Specialty Start Date End Date Carley Maguire MD [address] [place] [phone] PCP - General Internal Medicine 11/13/21 documented as of this encounter
--- OUTSIDE RECORDS SUMMARY | 2024-12-18 17:59 | XMS_ITS | Encounter Summary ---
Author Organization [facility] Address [address] [place] [address] Care Team Providers Care Tipple Tender Name Role Phone Carley Maguire MD Primary Care Provider [phone] Encounter Details Date Type Department Care Team (Late st Contact Info) Description 06/23/2024 Billing Patient Not Present Adult Medicine [address] [phone] Carley Maguire MD [address] [place] [address] Social History Tobacco Use Types Packs/Day Years [...] PM EST documented as of this encounter Plan of Treatment Not on file documented as of this encounter Visit Diagnoses Not on filedocumented in this encounter Care Teams Tipple Tender Relationship Specialty Start Date End Date Carley Maguire MD [address] [place] [address] PCP - General Internal Medicine 11/13/21 documented as of this encounter
--- OUTSIDE RECORDS SUMMARY | 2024-12-18 17:59 | XMS_ITS | Clinical Summary ---
Author Organization [facility] Address [address] [place] [phone] Phone Care Team Providers Care [employer] Other Ranks Name Role Phone Carley Maguire MD Primary Care Provider [phone] Allergies Active Allergy Reactions Criticality Noted Date Comments Lamotrigine Swelling 07/21/2011 Quetiapine Fumarate Swelling 07/21/2011 Medications clonazePAM (KlonoPIN) 1 mg tablet Take 1 Tab by mouth 2 times daily as needed. Takes 2 scheduled 2 prns Active cloZAPine (CLOZARIL) 100 mg tablet Take 300 mg by mouth at bedtime. Active desmopressin (DDAVP) 0.2 mg tablet Take 3 tablets (0.6 mg total) by mouth at bedtime. Active divalproex (DEPAKOTE ER) 500 mg 24 hr tablet Take 1 Tab by mouth 2 times daily. Active lithium 300 mg capsule Take 1 Capsule by mouth every morning. Active lithium 300 mg tablet Take 2 Tablets by mouth every evening. Active oxyBUTYnin (DITROPAN) 5 mg tablet TAKE 1 TABLET BY MOUTH TWICE A DAY Active clindamycin (CLEOCIN T) 1 % gel Apply topically 2 (two) times a day. For treatment of hydradenitis suppurativa of axillae and groin. 30 g 03/03/20 24 025 Active bisacodyL (DULCOLAX) 5 mg EC tablet Take 2 tablets by mouth right before beginning bowel prep. See instructions provided by the office 2 tablet 06/04/19 25 Active polyethylene glycol (Golytely) 236-22.74-6.74 -5.86 gram solution Take 4L by mouth once for one dose. May substitue any PEG. Starting at 6PM the night before your procedure drink 1 8oz glasses at your own pace until you complete half of the gallon. Finish 2nd half of the gallon 5 hours before your procedure. 4000 mL 06/04/19 25 Active lisinopriL (PRINIVIL,ZEST RIL) 2.5 mg tablet TAKE 1 TABLET BY MOUTH EVERY DAY 90 tablet 1 09/25/19 25 Active omeprazole (PriLOSEC) [address] capsule TAKE 1 CAPSULE BY MOUTH DAILY 90 capsule 10/14/19 25 Active celecoxib (CeleBREX) 100 mg capsule TAKE 1 CAPSULE BY MOUTH TWICE A DAY 60 capsule 1 11/12/19 25 Active carvediloL (COREG) 12.5 mg tablet TAKE 1 TABLET BY MOUTH TWICE A DAY WITH FOOD 180 tablet 11/24/19 25 Active cholecalcifero l (VITAMIN D-3) 50 mcg (2,000 unit) capsule TAKE 1 CAPSULE (2,000 UNITS TOTAL) BY MOUTH ONCE DAILY 90 capsule 11/24/19 25 Active cholecalcifero l (VITAMIN D-3) 50 mcg (2,000 unit) capsule Take 1 capsule (2,000 Units total) by mouth 1 (one) time each day. 30 capsule 5 06/04/19 25 025 Discontinued carvediloL (COREG) 12.5 mg tablet Take 1 tablet (12.5 mg total) by mouth 2 (two) times a day with meals. 180 tablet 1 06/04/19 25 025 Discontinued Active Problems Problem Noted Date Diagnosed Date Vitamin D deficiency 06/03/2024 Post-traumatic stress disorder, unspecified 05/10 Primary hypertension [...] uncomplicated 11/27/2019 Postmenopausal bleeding 08/31/2018 Dilated cardiomyopathy ([facility] V24, [facility] V28 ) 07/18/2017 Overview (01/16/2024): Cardiac cath 07/11/2017 [facility] - nonobstructive CAD Hypertriglyceridemia 06/17/2017 Tubular adenoma of colon 04/15/2017 Gastro-esophageal reflux disease without esophag itis 11/19/2016 Incisional hernia 11/16/2013 Ventral hernia 07/06/2012 Overview (01/16/2024): S/p repair Leukopenia 04/14/2012 Overview (01/16/2024): Clozaril was tapered off but she developed uncontrolled schizoaffective symptoms; Clozaril restarted 12/2012 Alcohol abuse, in remission 01/10/2012 Morbid obesity ([facility] V24, [facility] V28) 2011 Schizoaffective disorder, bi polar type ([facility] V24, [facility] V28) 07/21/2011 Encounters Date Type Department Care Team Description 12/11/2024 Telephone Adult Medicine [address] [phone] Carley Maguire MD 10/30/2024 Telephone Adult Medicine [address] [phone] Carley Maguire MD 10/16/2024 Telephone Adult Medicine [address] [phone] Carley Maguire MD 10/05/2024 1:15 PM EDT Office Visit Orthopedics - [address] [phone] Tanner Matt PA Primary osteoarthritis of right knee (Primary Dx); Knee stiffness, right 09/22/2024 Telephone Adult Medicine [address] [phone] Emily Asher MA from Last 3 Months Immunizations Name Administration [...] COMMENT: polyps UPPER GASTROINTESTINAL ENDOSCOPY 03/19/2017 PROCEDURE: [facility] UPPER GI ENDOSCOPY PERFORMED; COMMENT: gastritis CARDIAC CATHETERIZATION PROCEDURE: HISTORICAL CARDIAC CATH BREAST BIOPSY 2011 Bilateral left 2011, right 2022 BREAST LUMPECTOMY 01/24/12 Bilateral left 2011, right 2022 SECTION Medical History Medical History Date Comments Bipolar illness ([facility] V24 , [facility] V28) 07/21/2011 DX:Bipolar illness (HCC) Morbid obesity ([facility] V24, [facility] V28) 07/21/2011 DX:Morbid obesity (HCC) Schizoaffective disorder, bi polar type ([facility] V24, [facility] V28) 07/21/2011 DX:Schizoaffective disorder , bipolar type (HCC) Historical Medical DX 01/10/2012 DX:Alcohol abuse, in remission Leukopenia 04/14/2012 DX:Leukopenia; C OMMENT: Clozaril was tapered off but she developed uncontrolled schizoaffective symptoms; Clozaril restarted 12/2012 Historical Medical DX 07/06/2012 DX:Ventral hernia; COMMENT: S/p repair Gastroesophageal reflux disease 11/19/2016 DX:Gastroesophageal reflux disease Tubular adenoma of colon 04/15/2017 DX:Tubu lar adenoma of colon Hypertriglyceridemia 06/17/2017 DX:Hypertri glyceridemia Dilated cardiomyopathy ([facility] V24, [facility] V28) 07/18/2017 DX:Dilated cardiomyopathy (H CC); COMMENT: Cardiac cath 07/11/2017 [facility] - nonobstructive CAD Chronic systolic heart failu re ([facility] V24, [facility] V28) 06/17/2017 DX:Chronic systolic heart fa ilure (HCC); COMMENT: Neg cardiac cath (nonobstructive CAD) 07/11/17 at [facility] Postmenopausal bleeding 08/31/2018 DX:Postm enopausal bleeding Infiltrating ductal carcinom a of breast ([facility] V24, [facility] V28) 12/26/2011 DX:Infiltrating ductal carc inoma of breast (HCC); COMMENT: left Hepatitis C [...] Tobacco: Every Day Cigarettes Smokeless Tobacco: Never Tobacco Cessation:Ready to Q uit: Not Asked; Counseling Given: Not Answered Alcohol Use Standard Drinks/Week Comments No 0 [...] Sign Reading Time Taken Comments Blood Pressure 120/69 08/04/2024 9:29 AM EDT Pulse 65 08/04/2024 9:29 AM EDT Temperature 35.6 C (96 F) 08/04/2024 9:09 AM EDT Respiratory Rate 16 10/05/2024 1:23 PM EDT Oxygen Saturation 94% 08/04/2024 9:29 AM EDT Inhaled Oxygen Concentration - - Weight 107 kg (235 lb) 10/05/2024 1:23 PM EDT Height 170.2 cm (5' 7 ) 10/05/2024 1:23 PM EDT Body Mass Index 36.81 10/05/2024 1:23 PM EDT Plan of Treatment Health Maintenance Due Date Last Done Comments Hepatitis A Vaccines (1 of 2 - Risk 2-dose series) 1988 Hepatitis B Vaccines (1 of 3 - 19+ 3-dose series) 1988 Pneumococcal Vaccine: 50+ Years (1 of 2 - PCV) 1988 Zoster Vaccines (1 of 2) 1988 HIV Screening 03/16/2022 Social Influencers of Health Screening 03/16/2022 Depression Screening 04/08/2024 COVID-19 Vaccine ( season) 2024 04/19/2022, 04/19/2021, 08/21/2020, Additional history exists Influenza Vaccine (#1) 2024 01/16/2018, 2016 Hypertension/CHF/CAD Annual BMP Blood Test 06/03/2025 06/03/2024, 08/16/2023, 08/16/2023 Breast Cancer Screening 04/24/2026 04/24/19 25, 01/08/2023, 12/18/2022, Additional history exists Cervical Cancer Screening: HPV 03/21/2027 03/21/2022 Cholesterol Screening (Lipid Panel) 08/15/2028 08/16/2023, 08/16/2023 Colorectal Cancer Screening: Colonoscopy 08/04/2029 08/04/2024 Osteoporosis Screening (Bone Density Screening) 07/19/2031 07/18/2021, [...] age to complete this topic Meningococcal B Vaccine Aged Out No l onger eligible based on patient's age to complete this topic RSV Immunization Patients Under 20 months Aged Out No longer eligible based on patient's age to complete this topic Varicella Vaccines Aged Out No longer eligible based on patient's age to complete this topic Procedures Procedure Name Priority Date/Time Associated Diagnosis Comments COLONOSCOPY Routine 08/04/2024 9:08 AM EDT Hx of colonic polyps BASIC METABOLIC PANEL Routine 06/03/2024 1:49 PM EST Primary hypertension MG MAMMO DIGITAL DIAGNOSTIC W FARZAD BILAT Routine 04/24/2024 8:36 AM EST 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 - Stool in the entire examined colon. - No specimens collected. Recommendation: - Repeat colonoscopy in 3 months because the bowel preparation was suboptimal. Narrative 08/04/2024 9:20 AM EDT [facility] GI Patient Name: Jenny Waldrop Procedure Date: 08/04/2024 8:44 AM Date of : 1970 Age: 53 Room: ROOM 14 Gender: Female Note Status: Finalized Attending MD: Zackary Feliciano MD, Procedure Date No Time: 08/04/2024 Procedure: Colonoscopy Indications: High risk colon cancer surveillance: Personal history of colonic polyps Providers: Zackary Feliciano MD Referring MD: Zackary Feliciano MD Medicines: Propofol per Anesthesia Complications: No immediate complications. Estimated Blood Loss: Estimated blood loss: none. Procedure: Pre-Anesthesia Assessment: - ASA Grade Assessment: III - A patient with severe systemic disease. After I obtained informed consent, the scope was passed under direct vision. Throughout the procedure, the patient's blood pressure, pulse, and oxygen saturations were monitored continuously. The Olympus Pediatric Colonoscope was introduced through the anus with the intention of advancing to the cecum. The scope was advanced to the transverse colon before the procedure was aborted. Medications were given. The colonoscopy was performed without difficulty. The patient tolerated the procedure well. The quality of the bowel preparation was poor. Findings: The perianal and digital rectal examinations were normal. A large amount of semi-liquid stool was found in the entire colon, interfering with visualization. Lavage of the area was performed, resulting in incomplete clearance with continued poor visualization. Procedure Code(s): --- Professional --- G0105, 53, Colorectal cancer screening; colonoscopy on individual at high risk Diagnosis Code(s): --- Professional --- Z86.010, Personal history of colonic polyps CPT copyright 2020 [employer]. All rights reserved. The codes documented in this report are preliminary and upon videographer review may be revised to meet current compliance requirements. Zackary Feliciano MD 08/04/2024 9:20:08 AM This report has been signed electronically.Zackary Feliciano MD Number of Addenda: 0 Note Initiated On: 08/04/2024 8:44 AM Endoscopy Department at [facility] - [address] [place] [phone] Procedure Note Zackary Feliciano MD - 08/04/2024 [facility] GI Patient Name: Jenny Waldrop Procedure Date: 08/04/2024 8:44 AM Date of : 1970 Age: 53 Room: ROOM 14 Gender: Female Note Status: Finalized Attending MD: Zackary Feliciano MD, Procedure Date No Time: 08/04/2024 Procedure: Colonoscopy Indications: High risk colon cancer surveillance: Personalhistory of colonic polyps Providers: Zackary Feliciano MD Referring MD: Zackary Feliciano MD Medicines: Propofol per Anesthesia Complications: No immediate complications. Estimated Blood Loss: Estimated blood loss: none. Procedure: Pre-Anesthesia Assessment: - ASA Grade Assessment: III - A patient with severe systemic disease. After I obtained informed consent, the scope was passed under direct vision. Throughout theprocedure, the patient's blood pressure, pulse, and oxygen saturations were monitored continuously. TheOlympus Pediatric Colonoscope was introduced through theanus with the intention of advancing to the cecum. The scope was advanced to the transverse colon beforethe procedure was aborted. Medications were given. The colonoscopy was performed without difficulty. The patient tolerated the procedure well. The qualityof the bowel preparation was poor. Findings: The perianal and digital rectal examinations were normal. A large amount of semi-liquid stool was found inthe entire colon, interfering with visualization.Lavage of the area was performed, resulting in incomplete clearance with continued poor visualization. Procedure Code(s): --- Professional --- G0105, 53, Colorectal cancer screening; colonoscopyon individual at high risk Diagnosis Code(s): --- Professional --- Z86.010, Personal history of colonic polyps CPT copyright 2020 [employer]. All rights reserved. The codes documented in this report are preliminary and upon videographer reviewmay be revised to meet current compliance requirements. Zackary Feliciano MD 08/04/2024 9:20:08 AM This report has been signed electronically.Zackary Feliciano MD Number of Addenda: 0 Note Initiated On: 08/04/2024 8:44 AM Endoscopy Department at [facility] - [address] [place] [phone] IMPRESSION: - Preparation of the colon was poor. - Stool in the entire examined colon. - No specimens collected. Recommendation: - Repeat colonoscopy in 3 months because the bowel preparation was suboptimal. us Zackary Feliciano MD GI~PROCEDURE ORDERABLES Fin al Result * (ABNORMAL) Basic metabolic panel (06/03/2024 1:49 PM EST) Sodium 137 133 - 145 mmol/L LAB CHEMISTRY METHOD 06/03/2024 6:19 PM [facility] Potassium 4.5 3.5 - 5.5 mmol/L LAB CHEMISTRY METHOD 06/03/2024 6:19 PM [facility] Chloride 102 96 - 110 mmol/L LAB CHEMISTRY METHOD 06/03/2024 6:19 PM [facility] CO2 25 21 - 32 mmol/L LAB CHEMISTRY METHOD 06/03/2024 6:19 PM [facility] Anion Gap 10 3 - 11 LAB CHEMISTRY METHOD 06/03/2024 6:19 PM [facility] Glucose 101(H) 70 - 100 mg/dL LAB CHEMISTRY METHOD 06/03/2024 6:19 PM [facility] BUN 15 5 - 25 mg/dL LAB CHEMISTRY METHOD 06/03/2024 6:19 PM [facility] Creatinine 0.70 0.50 - 1.10 mg/dL LAB CHEMISTRY METHOD 06/03/2024 6:19 PM [facility] eGFR 103 >=60 mL/min/1. 73m2 LAB CHEMISTRY METHOD 06/03/2024 6:19 PM [facility] Comment:Calculation based on the Chronic Kidney Disease Epidemiology Collaboration (CKD-EPI) equation refit without adjustment for race. BUN/Creatinine Ratio 21.4 LAB CHEMISTRY METHOD 06/03/2024 6:19 PM [facility] Calcium 9.6 8.5 - 10.5 mg/dL LAB CHEMISTRY METHOD 06/03/2024 6:19 PM [facility] Blood Venous blood specimen / Unknown Venipuncture / Unknown 06/03/2024 1:49 PM EST 06/03/2024 1:49 PM EST Joshua HILTON LAB BLOOD ORDERABLES Final Res ult [facility] [address] [place] [address], [place] [phone] * MG Mammo Digital Diagnostic w Farzad bilat (04/24/2024 8:36 AM EST) Anatomical Region Laterality Modality Breast Bilateral Mammography 04/24/2024 8:14 AM EST Impressions 04/24/2024 8:26 AM EST No mammographic evidence of malignancy. Postlumpectomy changes bilaterally, stable on the left; no previous mammograms following the right lumpectomy are available for comparison. Follow-up bilateral diagnostic mammography in one year is recommended. TISSUE DENSITY: There are scattered areas of fibroglandular density. (BI-RADS category B) IMPRESSION: No mammographic evidence of malignancy. Postlumpectomy changes are present bilaterally. BI-RADS CATEGORY: 3 - PROBABLY BENIGN RECOMMENDATION: Diagnostic bilateral mammogram recommended in 1 year. Mammo Location: [facility], [address] [place] [phone] -------- FINAL REPORT -------- Dictated By: Anastacio Pathak Dictated Date: 04/24/2024 08:14 ET Assigned Physician: Anastacio Pathak Reviewed and Electronically Signed By: Anastacio Pathak Signed Date: 04/24/2024 08:26 ET Workstation ID: [id number] Transcribed By: Self Edit Transcribed Date: 04/24/2024 08:14 ET Narrative 04/24/2024 8:26 AM EST CLINICAL: The patient is a 53 years Female with personal history of left breast cancer in 2011 treated with lumpectomy, chemotherapy, and radiation. The patient also has a personal history of right breast cancer in 2022, treated with lumpectomy which was performed on 02/06/2023. This is the patient's first mammogram following treatment for right breast cancer. COMPARISON: Most recently 02/04/2023 and most remotely 12/08/2021. TECHNIQUE: Full-field digital mammography of the breasts bilaterally consisting of tomosynthesis in MLO and CC projection is performed in the [employer] 2000-D unit. Computer aided detection utilizing the iCAD system was utilized. FINDINGS: The breasts are seen to be composed of a combination of fatty and fibroglandular elements. Architectural distortion is present at the 12:00 position of the left breast, middle depth, with associated dystrophic calcifications and overlying skin thickening and retraction, representing the lumpectomy site. This is unchanged as compared to prior studies dating back to 12/08/2021. There is also mild architectural distortion in the right breast, just medial to the nipple line, with surgical clips, representing the right lumpectomy site. Mild overlying skin thickening is noted. Bilateral breast calcifications, more numerous in the left breast than in the right breast, are without suspicious interval change. There is no suspicious cluster of microcalcifications, mass, [...] MLO and CC projection is performed in the[employer] 2000-D unit. Computer aided detection utilizing the [...] mammogram recommended in 1 year. Mammo Location: [facility], [address] [place] [id number] -------- FINAL REPORT -------- Dictated By: Anastacio Pathak Dictated Date: 04/24/2024 08:14 ET Assigned Physician: Anastacio Pathak Reviewed and Electronically Signed By: Anastacio Pathak Signed Date: 04/24/2024 08:26 ET Workstation ID: [id number] Transcribed By: Self Edit Transcribed Date: 04/24/2024 08:14 ET Brittany Garcia MD IMG BI PROCEDURES Final Result * (ABNORMAL) Lipid panel (08/16/2023) Pathologist [facility] LDL/HDL Ratio 6(A) 0 - 4 Triglycerides 271(A) 0 - 150 mg/dL Cholesterol 174 0 - 200 mg/dL HDL 31(A) >=40 mg/dL LDL Cholesterol 89 0 - 100 mg/dL Blood Venous blood specimen / Unknown Historical Provider LAB BLOOD ORDERABLES Hollie l Result * Cervical Cancer Screening: HPV (03/21/2022) Pathologist [facility] Cervical Cancer Screening: HPV negative interpretation abstracted Historical Provider HEALTH MAINTENANCE Final Result * Hepatitis C Screening (01/04/2022) Hepatitis C Screening abstracted us Historical Provider HEALTH MAINTENANCE Final Result * DXA BONE DENSITY STUDY 1+ SITS AXIAL SKEL (07/18/2021 11:27 AM EDT) Anatomical Region Laterality Modality Bone Densitometr y 03/06/2021 12:0 4 PM EST Narrative 07/18/2021 6:01 PM EDT BONE DENSITY Lumbar Spine T-score is +0.2 (SD relative to 20-29 y/o adult) Z-score is +1.1 (SD relative to age matched peers) This is normal by criteria defined by the WHO. Left Hip T-score is +2.8 Z-score is +3.6 This is normal by criteria defined by the WHO. Impression: Based on the World Health Organization criteria, Jenny Waldrop should be classified as having normal bone density. The [facility] Department of Internal Medicine recommends using National [...] Based on the World Health Organization criteria, Jenny Waldrop should beclassified as having normal bone density. The [facility] Department of Internal Medicine recommendsusing National Osteoporosis [...] of fracture risk by FRAX. Carlee HILTON [facility] DXA PROCEDURES Final Result from Last 3 Months or Most Recently Relevant to Health Maintenance Insurance [facility] [employer] Care Teams [employer] Other Ranks Relationship Specialty Start Date End Date Carley Maguire MD [address] [place] [phone] PCP - General Internal Medicine 11/13/21
== END 2024-12-18 16:48 | disposition home or self-care (01) ==
LOC: HO.LABR 16:47
PROVIDERS: PCP Internal Medicine; Visit Provider Psychiatry & Neurology Psychiatry
DX: Z79.899 Other long term (current) drug therapy (principal)
CPT/HCPCS: 36415; 85025

== ENCOUNTER 2025-02-01 16:31 | Outpatient (REF) | payer OTHER, SELFPAY ==
--- OUTSIDE RECORDS SUMMARY | 2025-01-27 09:45 | XMS_ITS | Encounter Summary ---
Author Organization [facility] Address [address] [place] [address] Care Team Providers Care Bias Binding Cutter Name Role Phone Carley Maguire MD Primary Care Provider [phone] Reason for Visit * Reason Comments Follow-up Encounter Details Date Type Department Care Team (Late st Contact Info) Description 01/27/2025 9:45 AM EDT Office Visit [facility] Hematology Oncology [address] [place] [phone] Sterling Montes MD [address] [place] [address] Malignant neoplasm of breast in female, estrogen receptor positive, unspecified laterality, unspecified site of breast (CMS/HCC V24, CMS/HCC V28) (Primary Dx) Social History Tobacco Use Types Packs/Day Years Used Date Smoking Tobacco: Every Day Cigarettes Smokeless Tobacco: Never Alcohol Use Standard Drinks/Week Comments No 0 (1 standard drink = 0.6 oz pur e alcohol) Interpersonal Safety Answer Date Record ed Physical Abuse Unrecognized value 08/04/2024 Verbal Abuse Unrecognized value 08/04/2024 Comments No Sex and Gender Information Value Date Recorded Sex Assigned at Female 03/04/2024 2:27 PM EST Legal Sex Female 2:13 AM EST Gender Identity Female 03/04/2024 2:27 PM EST Sexual Orientation Straight 03/04/2024 2: 27 PM EST documented as of this encounter Last Filed Vital Signs Vital Sign Reading Time Taken Comments Blood Pressure 131/78 01/27/2025 9:55 AM EDT Pulse - - Temperature 36.4 C (97.6 F) 01/27/2025 9:55 AM EDT Respiratory Rate - - Oxygen Saturation 98% 01/27/2025 9:55 AM EDT Inhaled Oxygen Concentration - - Weight 102 kg (224 lb) 01/27/2025 9:55 AM EDT Height - - Body Mass Index 36.15 01/11/2025 2:24 PM EDT documented in this encounter Progress Notes * Sterling Montes MD - 01/27/2025 9:45 AM EDT CHIEF COMPLAINT: Follow-up IDENTIFIER:Aleksandra Waldrop is a 54 y.o. female. HPI: Patient is a 54-year-old female who has multiple medical issues including schizophrenia, history of breast cancer stage II resected more than a decade ago, please see oncology history for detail patient recently found to have metastatic breast cancer, patient was supposed to have staging workup including PET scan but her insurance declined but patient have tumor marker checked which is more than 9000 (CA 27-29) ROS: Patient not having any significant aches and pains today, patient had some rib pain as well as backpain 1 episode in last few days Patient has been more sleepy Patient lives by herself Patient has poor appetite but able to eat Patient denies any chest pain chest pressure Patient denies any significant abdominal pain at this time Oncology History No problem history exists. Oncology History Overview Note __patient had any screening mammogram in November 2011, demonstrated a suspicious lesion in left breast, further workup confirmed that lesion so patient underwent a biopsy in December 2011, pathology result showed infiltrating ductal carcinoma, ER/MS positive HER-2/steve negative __patient underwent lumpectomy on 01/24/[address] Carina Gibson, patient found to have T1c [id number] __Patient underwent adjuvant chemoradiation and is started on tamoxifen in September 2012 (patient was premenopausal) __Patient did not have menses since 2015 so, I switched to anastrozole 1 mg daily in February 2017 which she has tolerated very well __Patient bone density in June 2019 was unremarkable, there was no osteopenia or osteoporosis __I followed patient until 2023, endocrine therapy discontinued __Patient admitted to [facility] in summer 2024 with atypical aches and pain as well as abnormal liver function test, further workup showed metastatic lesion in the liver, biopsy confirmed metastatic breast cancer __Patient starting on Faslodex with Ibrance in last week of January 2025 PAST MEDICAL HISTORY: Problem List[1] Medical History[2] SOCIAL HISTORY: Social History Tobacco Use Smoking status: Every Day Current packs/day: 0.50 Types: Cigarettes Smokeless tobacco: Never Substance Use Topics Alcohol use: No FAMILY HISTORY: Family History[3] Family Status Relation Name Status MGM 54 Father unknown type cancer Mother Alive Uncle MGF Son Alive Son Alive Son Alive PGM PGF No partnership data on file Current Medications[4] Current Allergies[5] PHYSICAL EXAM: Visit Vitals BP 131/78 (BP Location: Left arm, Patient Position: Sitting, BP Cuff Size: Adult) Temp 36.4 ??C (97.6 ??F) (Temporal) Wt 102 kg (224 lb) SpO2 98% BMI 36.15 kg/m?? OB Status Postmenopausal Smoking Status Every Day BSA 2.1 m?? ECOG 1-2 APPEARANCE: Alert and oriented in no acute distress, moderately obese EYES: nonicteric sclera pink conjunctiva ORAL CAVITY: No mucositis or thrush NECK: Neck supple, no significant adenopathy, HEART: normal S1 and S2 LUNG: clear to auscultation bilaterally except decreased breath sounds at bases LYMPH NODES: No palpable superficial adenopathy ABDOMEN: Obese, distended, soft, nontender and no organomegaly appreciated EXTREMITIES: Trace edema of lower extremity LABS: SGOT 108, SGPT 83 and alk phos 391 with total bilirubin of 0.6 BUN 18 creatinine 1.12 CA 27-29 level is more than 9000 WBC 11,000, hemoglobin 12.3 g, hematocrit 40.8% and platelet count 322 IMPRESSION: 1. Malignant neoplasm of breast in female, estrogen receptor positive, unspecified laterality, unspecified site of breast (CMS/HCC V24, CMS/HCC V28) Patient is a 54-year-old female who has multiple medical issues including schizoaffectivedisorder, patient has history of T1c N1 carcinoma of left breast resected in [address] Carina Gibson, patient had adjuvant chemoradiation and did endocrine therapy for almost 10 years, patient recently admitted to [facility] because of abnormal liver function test and generalized aches and pain, CT scan showed innumerable lesion of the liver suggestive of metastatic disease, biopsy confirmed breast cancer Patient saw me earlier this month, I did some staging workup but unfortunately PET scan was declined by her insurance, patient tumor marker is significantly elevated, clearly patient has been widespread metastatic disease. 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 Gastro-esophageal reflux disease without esophagitis Hidradenitis suppurativa Hypertriglyceridemia Incisional hernia Internal derangement of knee, left Leukopenia Morbid obesity (CMS/HCC V24, CMS/HCC V28) Overactive bladder Patellofemoral pain syndrome of left knee Postmenopausal bleeding Primary osteoarthritis of both knees Schizoaffective disorder, bipolar type (CMS/HCC V24, CMS/HCC V28) Tubular adenoma of colon Ventral hernia Post-traumatic stress disorder, unspecified Primary hypertension Hx of malignant neoplasm of female breast Vitamin D deficiency [2] Past Medical History: Diagnosis Date Bipolar illness (CMS/HCC V24, CMS/HCC V28) 07/21/2011 DX:Bipolar illness (HCC) Chronic systolic heart failure (CMS/HCC V24, CMS/HCC V28) 06/17/2017 DX:Chronic systolic heart failure (HCC); COMMENT: Neg cardiac cath (nonobstructive CAD) 07/11/17 at [facility] Dilated cardiomyopathy (CMS/HCC V24, CMS/HCC V28) 07/18/2017 DX:Dilated cardiomyopathy (HCC); COMMENT: Cardiac cath 07/11/2017 [facility] - nonobstructive CAD Gastroesophageal reflux disease 11/19/2016 DX:Gastroesophageal reflux disease Hepatitis C antibody test positive DX:Hepatitis C antibody test positive Historical Medical DX 01/10/2012 DX:Alcohol abuse, in remission Historical Medical DX 07/06/2012 DX:Ventral hernia; COMMENT: S/p repair Hypertriglyceridemia 06/17/2017 DX:Hypertriglyceridemia Infiltrating ductal carcinoma of breast (CMS/HCC V24, CMS/HCC V28) 12/26/2011 DX:Infiltrating ductal carcinoma of breast (HCC); COMMENT: left Leukopenia 04/14/2012 DX:Leukopenia; COMMENT: Clozaril was tapered off but she developed uncontrolled schizoaffective symptoms; Clozaril restarted 12/2012 Morbid obesity (CMS/HCC V24, CMS/HCC V28) 07/21/2011 DX:Morbid obesity (HCC) Postmenopausal bleeding 08/31/2018 DX:Postmenopausal bleeding Schizoaffective disorder, bipolar type (CMS/HCC V24, CMS/HCC V28) 07/21/2011 DX:Schizoaffective disorder, bipolar type (HCC) Tubular adenoma of colon 04/15/2017 DX:Tubular adenoma of colon [3] Family History Problem Relation Name Age of Onset Breast cancer Maternal Grandmother 54 Colon cancer Maternal Grandmother 54 Other (Other: Other) Father possible brain tumor Diabetes Mother Bipolar disorder Mother Other (Other: shizoaffective) Mother Esophageal cancer Uncle maternal Pneumonia Maternal Grandfather No Known Problems Son No Known Problems Son No Known Problems Son [4] Current Outpatient Medications: bisacodyL (DULCOLAX) 5 mg EC tablet, Take 2 tablets by mouth right before beginning bowel prep. Seeinstructions provided by the office, Disp: 2 tablet, Rfl: 0 carvediloL (COREG) 12.5 mg tablet, TAKE 1 TABLET BY MOUTH TWICE A DAY WITH FOOD, Disp: 180 tablet, Rfl: 0 cholecalciferol (VITAMIN D-3) 50 mcg (2,000 unit) capsule, TAKE 1 CAPSULE (2,000 UNITS TOTAL) BY MOUTH ONCE DAILY, Disp: 90 capsule, Rfl: 0 clindamycin (CLEOCIN T) 1 % gel, Apply topically 2 (two) times a day. For treatment of hydradenitissuppurativa of axillae and groin., Disp: 30 g, Rfl: 0 clonazePAM (KlonoPIN) 1 mg tablet, Take 1 tablet (1 mg total) by mouth 1 (one) time each day if needed for anxiety., Disp: , Rfl: cloZAPine (CLOZARIL) 100 mg tablet, Take 300 mg by mouth at bedtime., Disp: , Rfl: desmopressin (DDAVP) 0.2 mg tablet, Take 3 tablets (0.6 mg total) by mouth at bedtime., Disp: , Rfl: divalproex (DEPAKOTE ER) 500 mg 24 hr tablet, Take 1 Tab by mouth 2 times daily., Disp: , Rfl: lithium 300 mg tablet, Take 2 Tablets by mouth every evening., Disp: , Rfl: lithium 600 mg capsule, , Disp: , Rfl: omeprazole (PriLOSEC) [address] capsule, TAKE 1 CAPSULE BY MOUTH DAILY, Disp: 90 capsule, Rfl: 0 oxyBUTYnin (DITROPAN) 5 mg tablet, TAKE 1 TABLET BY MOUTH TWICE A DAY, Disp: , Rfl: polyethylene glycol (Golytely) 236-22.74-6.74 -5.86 gram solution, Take 4L by mouth once for one dose. May substitue any PEG. Starting at 6PM the night before your procedure drink 1 8oz glasses at your own pace until you complete half of the gallon. Finish 2nd half of the gallon 5 hours before yourprocedure., Disp: 4000 mL, Rfl: 0 [5] Allergies Allergen Reactions Lamotrigine Swelling Quetiapine Fumarate Swelling documented in this encounter Plan of Treatment Upcoming Encounters Date Type Department Care Team (Late st Contact Info) Description 02/02/2025 12:30 PM EDT Office Visit Adult Medicine [address] [phone] Carley Maugire MD [address] [place] [address] 02/10/2025 11:00 AM EST Office Visit Adult Medicine [address] [phone] Joshua Hampton PA [address] [place] [address] 03/16/2025 11:15 AM EST Office Visit [facility] Hematology Oncology [address] [place] [phone] Sterling Montes MD [address] [place] [address] Scheduled Orders Name Type Priority Associated Diagnoses Orde r Schedule CBC and differential Lab Routine Malignant neoplasm of breast in female, estrogen receptor positive, unspecified laterality, unspecified site of breast (CMS/HCC V24, CMS/HCC V28) Every 2 weeks for 99 Occurrences starting 01/27/2025 until 01/27/2026, 1 completed Comprehensive metabolic panel Lab Routine Malignant neoplasm of breast in female, estrogen receptor positive, unspecified laterality, unspecified site of breast (CMS/HCC V24, CMS/HCC V28) Every 2 weeks for 99 Occurrences starting 01/27/2025 until 01/27/2026, 1 completed documented as of this encounter Results * (ABNORMAL) Comprehensive metabolic panel (01/29/2025 4:49 PM EDT) Sodium 137 133 - 145 mmol/L LAB CHEMISTRY METHOD 01/29/2025 7:29 PM [facility] Potassium 4.3 3.5 - 5.5 mmol/L LAB CHEMISTRY METHOD 01/29/2025 7:29 PM [facility] Chloride 102 96 - 110 mmol/L LAB CHEMISTRY METHOD 01/29/2025 7:29 PM [facility] CO2 28 21 - 32 mmol/L LAB CHEMISTRY METHOD 01/29/2025 7:29 PM [facility] Anion Gap 7 3 - 11 LAB CHEMISTRY METHOD 01/29/2025 7:29 PM [facility] Glucose 70 70 - 100 mg/dL LAB CHEMISTRY METHOD 01/29/2025 7:29 PM [facility] BUN 26(H) 5 - 25 mg/dL LAB CHEMISTRY METHOD 01/29/2025 7:29 PM [facility] Creatinine 0.86 0.50 - 1.10 mg/dL LAB CHEMISTRY METHOD 01/29/2025 7:29 PM [facility] eGFR 80 >=60 mL/min/1. 73m2 LAB CHEMISTRY METHOD 01/29/2025 7:29 PM [facility] Comment:Calculation based on the Chronic Kidney Disease Epidemiology Collaboration (CKD-EPI) equation refit without adjustment for race. BUN/Creatinine Ratio 30.2 LAB CHEMISTRY METHOD 01/29/2025 7:29 PM [facility] Calcium 10.8(H) 8.5 - 10.5 mg/dL LAB CHEMISTRY METHOD 01/29/2025 7:29 PM [facility] AST (SGOT) 117(H) 10 - 42 unit/L LAB CHEMISTRY METHOD 01/29/2025 7:29 PM [facility] ALT (SGPT) 59 10 - 60 unit/L LAB CHEMISTRY METHOD 01/29/2025 7:29 PM [facility] Alkaline Phosphatase 434(H) 42 - 121 unit/L LAB CHEMISTRY METHOD 01/29/2025 7:29 PM [facility] Total Protein 7.0 6.0 - 8.0 g/dL LAB CHEMISTRY METHOD 01/29/2025 7:29 PM [facility] Albumin 3.0(L) 3.2 - 5.0 g/dL LAB CHEMISTRY METHOD 01/29/2025 7:29 PM [facility] Total Bilirubin 1.0 0.0 - 1.4 mg/dL LAB CHEMISTRY METHOD 01/29/2025 7:29 PM [facility] Blood Venous blood specimen / Unknown Venipuncture / Unknown 01/29/2025 4:49 PM EDT 01/29/2025 4:49 PM EDT us Sterling Montes MD LAB BLOOD ORDERABLES Final R esult [facility] [address] [place] [address], documented in this encounter Visit Diagnoses Diagnosis Malignant neoplasm of breast in female, estrogen receptor positive, unspecified laterality, unspecified site of breast (CMS/[facility] V24, CMS/[facility] V28)- Primary documented in this encounter Care Teams Bias Binding Cutter Relationship Specialty Start Date End Date Carley Maguire MD [address] [place] [address] PCP - General Internal Medicine 11/13/21 documented as of this encounter
[2025-02-01 16:41] LABS: MANUAL DIFF FLAG NO
[2025-02-01 17:22] LABS: Hematocrit 42.2 % (37.0-47.0); Hemoglobin 12.9 g/dl (12.0-16.0); Imm Gran Abs Auto 0.06 X10*3/uL (0.00-0.03); Imm Gran Pct Auto 0.6 % (0.0-0.4); Lymphocytes Absolute Auto 2.6 X10*3/uL (1.2-4.9); Mean Corpuscular HGB Conc 30.6 g/dl (31.0-35.0); Mean Corpuscular Hemoglobin 29.7 pg (27.0-33.0); Mean Corpuscular Volume 97.0 fL (80.0-98.0); NRBC Abs Auto 0.000 X10*3/uL (0.0-0.012); NRBC Pct Auto 0.0 /100WBC (0.0-0.2); Platelet Count 268 X10*3/uL (160-400); Red Blood Count 4.35 X10*6/uL (4.20-5.50); White Blood Count 10.4 X10*3/uL (4.8-10.8)
--- OUTSIDE RECORDS SUMMARY | 2025-02-01 19:16 | XMS_ITS | Encounter Summary ---
Author Organization [facility] Address [address] [place] [address] Care Team Providers Care Hand Binder Stripper Name Role Phone Carley Maguire MD Primary Care Provider [phone] Reason for Visit * Reason Onset Date Comments faxed vna order 01/22/2025 Jonathan Sahu [phone] Encounter Details Date Type Department Care Team ([facility] st Contact Info) Description 01/22/2025 Telephone Adult Medicine [address] [phone] Carley Maguire MD [address] [place] [address] Social History Tobacco Use Types Packs/Day Years [...] as of this encounter Progress Notes * Dolly Geller - 01/22/2025 3:43 PM EDT Faxed order received from Jonathan Sahu [phone] please sign and fax to [phone]. documented in this encounter Plan of Treatment Upcoming Encounters Date Type Department Care Team (Late st Contact Info) Description 02/02/2025 12:30 PM EDT Office Visit [address] [phone] Carley Maguire MD [address] [place] [address] 02/10/2025 11:00 AM EST Office Visit [address] [phone] Joshua Hampton PA [address] [place] [address] 03/16/2025 11:15 AM EST Office Visit [facility] Hematology Oncology [address] [place] [phone] Sterling Montes MD [address] [place] [address] documented as of this encounter Visit Diagnoses Not on filedocumented in this encounter Care Teams Hand Binder Stripper Relationship Specialty Start Date End Date Carley Maguire MD [address] [place] [address] PCP - General Internal Medicine 11/13/21 documented as of this encounter
--- OUTSIDE RECORDS SUMMARY | 2025-02-01 19:16 | XMS_ITS | Clinical Summary ---
Author Organization [facility] Address [address] [place] [address] Care Team Providers Care Cobbler Upper Name Role Phone Carley Maguire MD Primary Care Provider [phone] Allergies Active Allergy Reactions Criticality Noted Date [...] age to complete this topic Care Teams Cobbler Upper Relationship Specialty Start Date End Date Carley Maguire MD [address] [place] [address] PCP - General Internal Medicine 06/04/23
--- OUTSIDE RECORDS SUMMARY | 2025-02-01 19:16 | XMS_ITS | Encounter Summary ---
Author Organization [facility] Address [address] [place] [address] Care Team Providers Care Driver Utility Worker Name Role Phone Carley Maguire MD Primary Care Provider [phone] Reason for Visit * Reason Onset Date Comments faxed vna order 01/28/2025 Jonathan Sahu [phone] Encounter Details Date Type Department Care Team ([facility] st Contact Info) Description 01/28/2025 Telephone Adult Medicine [address] [phone] Carley Maguire MD [address] [place] [address] Social History Tobacco Use Types Packs/Day Years [...] encounter Progress Notes * Dolly Geller - 01/28/2025 3:06 PM EDT Faxed order received from Jonathan Sahu [phone] please sign and fax to [phone]. documented in this encounter Plan of Treatment Upcoming Encounters Date Type Department Care Team (Late st Contact Info) Description 02/02/2025 12:30 PM EDT Office Visit [address] [phone] Carley Maguire MD [address] [place] [address] 02/10/2025 11:00 AM EST Office Visit [address] [phone] Joshua Hampton PA [address] [place] [address] 03/16/2025 11:15 AM EST Office Visit [facility] Hematology Oncology [address] [place] [phone] Sterling Montes MD [address] [place] [address] documented as of this encounter Visit Diagnoses Not on filedocumented in this encounter Care Teams Driver Utility Worker Relationship Specialty Start Date End Date Carley Maguire MD [address] [place] [address] PCP - General Internal Medicine 11/13/21 documented as of this encounter
--- OUTSIDE RECORDS SUMMARY | 2025-02-01 19:16 | XMS_ITS | Encounter Summary ---
Author Organization [facility] Address [address] [place] [address] Care Team Providers Care Benefits Coordinator Name Role Phone Carley Maguire MD Primary Care Provider [phone] Encounter Details Date Type Department Care Team (Late Contact Info) Description 01/08/2025 Lab Requisition [facility] [address] [facility] [place] [phone] [place], [place] [address] [place] [address] Frequency of micturition Social History Tobacco Use Types Packs/Day Years [...] as of this encounter Plan of Treatment Upcoming Encounters Date Type Department Care Team (Late Contact Info) Description 02/02/2025 12:30 PM EDT Office Visit Adult Medicine [address] [phone] Carley Maguire MD [address] [place] [address] 02/10/2025 11:00 AM EST Office Visit [facility] [address] [place], [place] [phone] Joshua Hampton PA [address] [place] [address] 03/16/2025 11:15 AM EST Office Visit [facility] Hematology Oncology [address] [place] [phone] Sterling Montes MD [address] [place] [address] documented as of this encounter Procedures Procedure Name Priority Date/Time Associated Diagnosis Comments CULTURE URINE Routine 01/08/2025 12:00 AM EDT Frequency of micturition documented in this encounter Results * (ABNORMAL) Culture urine (01/08/2025 12:00 AM EDT) Culture, Urine >=100,000 CFU/mL Streptococcus beta-hemolytic Group B(A) 01/09/2025 2:03 PM EDT [facility] Comment: Susceptibility testing is not routinely performed for Beta Streptococcus isolates since these organisms are predictably sensitive to Penicillin. If the Patient is not responding, is allergic to Penicillin, or further therapeutic information is requir ed, please consult an Infectious Disease Specialist. Urine Urine specimen obtained by clean catch procedure / Unknown 01/08/2025 01/08/2025 5:26 PM EDT Narrative [facility] - 01/09/2025 2:03 PM EDT Additional colony types present in insignificant amounts. us [facility] MICROBIOLOGY - GENERAL ORDERABLES Final Result [facility] [address] [place] [address], documented in this encounter Visit Diagnoses Diagnosis Frequency of micturition Urinary frequency documented in this encounter Care Teams Benefits Coordinator Relationship Specialty Start Date End Date Carley Maguire MD [address] [place] [phone] PCP - General Internal Medicine 11/13/21 documented as of this encounter
--- OUTSIDE RECORDS SUMMARY | 2025-02-01 19:16 | XMS_ITS | Encounter Summary ---
Author Organization [facility] Address [address] [place] [address] Care Team Providers Care Sawdust Drier Name Role Phone Carley Maguire MD Primary Care Provider [phone] Reason for Visit * Reason Onset Date Comments VNA 01/26/2025 Encounter Details Date Type Department Care Team ([facility] st Contact Info) Description 01/26/2025 Telephone Adult Medicine [address] [phone] [place], [place] Social History Tobacco Use Types Packs/Day Years [...] 2:27 PM EST Sexual Orientation Straight 03/04/2024 2 :27 PM EST documented as of this encounter Progress Notes * Karen Starkey RN - 01/26/2025 3:10 PM EDT Spoke with bianca pt's worker she too has been trying to contact pt with no success, Call to [place] [employer] they will go now and do a welfare check and call ambulance to evaluate pt Call to [facility]a [facility] to speak with food and nutrition supervisor. elizabeth is aware * Carley Maguire MD - 01/26/2025 3:01 PM EDT I saw the patient on 01/06 for hospital discharge follow-up and patient was verbal and ambulatory, she was able to provide a history, talk to me and asked questions this is definitely a big change from patient's baseline. Patient was accompanied by her social worker masters at last visit they are the ones who took her to the hospital previously they previously contacted us with this phone #[phone] her name is Bianca. I have not seen the patient since her visit for her low blood pressure on 01/19 so I do not know what her status was at that time. * Karen Starkey RN - 01/26/2025 2:19 PM EDT VNA Nurse is new to this patient and she assumed this was pt's baseline, she is very weak, drooling, speech is slurred and she is unable to use her hands to hold any object , [facility] ( [facility]) but d/c papers do not indicate pt's status on discharge . It dos not appear that this is normal for this patient Call to pt and left message pt lives alone * Eduarda Luque MA - 01/26/2025 2:07 PM EDT VNA CALL Which VNA office is calling? SOWMYA RIZO Full name of caller: BRENNA Linda The caller is A nurse Is the caller at the patients home?: no Reason for call: EXTREME UPPER BODY WEAKNESS/DROOLING AT THE MOUTH/SLURRED SPEECH.UNABLE TO HOLD PHONE OR REMOTE.HEART RATE AT REST IS 88 AND WALKING IS 116.SHE LIVES ALONE THEY ARE GOING TO INCREASEHER VISITS. Does caller need an urgent call back? yes Was CONTACT Telephone # obtained above?: yes Fax #: documented in this encounter Plan of Treatment Upcoming Encounters Date Type Department Care Team (Late st Contact Info) Description 02/02/2025 12:30 PM EDT Office Visit [address] [phone] Carley Maguire MD [address] [place] [address] 02/10/2025 11:00 AM EST Office Visit [address] [phone] Joshua Hampton PA [address] [place] [address] 03/16/2025 11:15 AM EST Office Visit [facility] Hematology Oncology [address] [place] [address] Sterling Montes MD [address] [place] [address] documented as of this encounter Visit Diagnoses Not on filedocumented in this encounter Care Teams Sawdust Drier Relationship Specialty Start Date End Date Carley Maguire MD [address] [place] [address] PCP - General Internal Medicine 11/13/21 documented as of this encounter
--- OUTSIDE RECORDS SUMMARY | 2025-02-01 19:16 | XMS_ITS | Encounter Summary ---
Author Organization [facility] Address [address] [place] [address] Care Team Providers Care Copper Miner Blasting Name Role Phone Carley Maguire MD Primary Care Provider [phone] Encounter Details Date Type Department Care Team (Late Contact Info) Description 06/23/2024 Billing Patient Not Present Adult Medicine [address] [phone] Carley Maguire MD [address] [place] [address] Social History Tobacco Use Types Packs/Day Years [...] 12:30 PM EDT Office Visit Adult Medicine [address] [phone] Carley Maguire MD [address] [place] [address] 02/10/2025 11:00 AM EST Office Visit Adult Medicine [address] [phone] Joshua Hampton PA [address] [place], [place] 03/16/2025 11:15 AM EST Office Visit [facility] Hematology Oncology [address] [place] [address] Sterling Montes MD [address] [place] [address] documented as of this encounter Visit Diagnoses Not on filedocumented in this encounter Care Teams Copper Miner Blasting Relationship Specialty Start Date End Date Carley Maguire MD [address] [place] [address] PCP - General Internal Medicine 11/13/21 documented as of this encounter
--- OUTSIDE RECORDS SUMMARY | 2025-02-01 19:16 | XMS_ITS | Encounter Summary ---
Author Organization [facility] Address [address] [place] [address] Care Team Providers Care Parking Meter Collector Name Role Phone Carley Maguire MD Primary Care Provider [phone] Reason for Visit * Reason Onset Date Comments faxed order 01/26/2025 [facility] er #[id number] Encounter Details Date Type Department Care Team ([facility] st Contact Info) Description 01/26/2025 Telephone Adult Medicine [address] [phone] Alexandria Costa [place] Social History Tobacco Use Types Packs/Day Years [...] as of this encounter Progress Notes * Alexandria Costa MA - 01/26/2025 9:32 AM EDT Received orders from [facility] order #[id number]. Please sign and fax to [phone] documented in this encounter Plan of Treatment Upcoming Encounters Date Type Department Care Team (Late st Contact Info) Description 02/02/2025 12:30 PM EDT Office Visit Adult Medicine [address] [phone] Carley Maguire MD [address] [place] [address] 02/10/2025 11:00 AM EST Office Visit [address] [phone] Joshua Hampton PA [address] [place] [address] 03/16/2025 11:15 AM EST Office Visit [facility] Hematology Oncology [address] [place] [address] Sterling Montes MD [address] [place] [address] documented as of this encounter Visit Diagnoses Not on filedocumented in this encounter Care Teams Parking Meter Collector Relationship Specialty Start Date End Date Carley Maguire MD [address] [place] [address] PCP - General Internal Medicine 11/13/21 documented as of this encounter
--- OUTSIDE RECORDS SUMMARY | 2025-02-01 19:16 | XMS_ITS | Clinical Summary ---
Author Organization [facility] Address [address] [place] [phone] Phone Care Team Providers Care Stage Settings Painter Name Role Phone Carley Maguire MD Primary Care Provider [phone] Allergies Active Allergy Reactions Criticality Noted Date Comments Lamotrigine Swelling 07/21/2011 Quetiapine Fumarate Swelling 07/21/2011 Medications clonazePAM (KlonoPIN) 1 mg tablet Take 1 tablet (1 mg total) by mouth 1 (one) time each day if needed for anxiety. Active cloZAPine (CLOZARIL) 100 mg tablet Take 300 mg by mouth at bedtime. Active desmopressin (DDAVP) 0.2 mg tablet Take 3 tablets (0.6 mg total) by mouth at bedtime. Active divalproex (DEPAKOTE ER) 500 mg 24 hr tablet Take 1 Tab by mouth 2 times daily. Active lithium 300 mg tablet Take 2 [...] your procedure. 4000 mL 06/04/19 25 Active omeprazole (PriLOSEC) [address] capsule TAKE 1 CAPSULE BY MOUTH DAILY 90 capsule 10/14/19 25 Active carvediloL (COREG) 12.5 mg tablet TAKE 1 TABLET BY MOUTH TWICE A DAY WITH FOOD 180 tablet 11/24/19 25 Active cholecalciferol (VITAMIN D-3) 50 mcg (2,000 unit) capsule TAKE 1 CAPSULE (2,000 UNITS TOTAL) BY MOUTH ONCE DAILY 90 capsule 11/24/19 25 Active lithium 600 mg capsule 01/05/20 25 Active palbociclib (IBRANCE) 125 mg tabletIndication s:Breast cancer metastasized to liver, left (CMS/HCC V24, CMS/HCC V28) Take 1 tablet (125 mg total) by mouth 1 (one) time each day. Days 1-21 followed by 7 days off. 21 tablet 6 01/28/20 25 Active lithium 300 mg capsule Take 1 Capsule by mouth every morning. 025 Discontin ued(Dupli jenni order) lisinopriL (PRINIVIL,ZESTRI L) 2.5 mg tablet TAKE 1 TABLET BY MOUTH EVERY DAY 90 tablet 1 09/25/19 25 025 Discontin ued(Thera py completed ) celecoxib (CeleBREX) 100 mg capsule TAKE 1 CAPSULE BY MOUTH TWICE A DAY 60 capsule 1 11/12/19 25 025 Discontin ued(Thera py completed ) Active Problems Problem Noted Date Diagnosed Date [...] uncomplicated 11/27/2019 Postmenopausal bleeding 08/31/2018 Dilated cardiomyopathy ([facility] V24, [facility] V28 ) 07/18/2017 Overview (01/16/2024): Cardiac cath 07/11/2017 [facility] - nonobstructive CAD Hypertriglyceridemia 06/17/2017 Tubular adenoma of colon 04/15/2017 Gastro-esophageal reflux disease without esophag itis 11/19/2016 Incisional hernia 11/16/2013 Ventral hernia 07/06/2012 Overview (01/16/2024): S/p repair Leukopenia 04/14/2012 Overview (01/16/2024): Clozaril was tapered off but she developed uncontrolled schizoaffective symptoms; Clozaril restarted 12/2012 Alcohol abuse, in remission 01/10/2012 Morbid obesity ([facility] V24, [facility] V28) 2011 Schizoaffective disorder, bi polar type ([facility] V24, [facility] V28) 07/21/2011 Encounters Date Type Department Care Team Description 01/28/2025 Telephone Adult Medicine [address] [phone] Carley Maguire MD 01/27/2025 9:45 AM EDT Office Visit [facility] [address] [place] [phone] Sterling Montes MD Malignant neoplasm of breast in female, estrogen receptor positive, unspecified laterality, unspecified site of breast ([facility] V24, [facility]/HCC V28) (Primary Dx) 01/26/2025 Telephone Adult Medicine [address] [phone] Eduarda Luque MA 01/26/2025 Telephone Adult Medicine [address] [phone] Alexandria Costa [place] 01/22/2025 Telephone Adult [address] [phone] Carley Maguire MD 01/20/[address] [phone] Carley Maguire MD 01/15/2025 Telephone [facility] [address] [place] [phone] Adrianna Morales [place] 01/11/2025 2:00 PM EDT Office Visit [facility] [address] [place] [phone] Sterling Montes MD Personal history of breast cancer (Primary Dx) 01/08/2025 Lab Requisition [facility] [address] [facility] [place] [phone] Jojo Nugent, PA Frequency of micturition 01/06/2025 12:30 PM EDT Office Visit [address] [phone] Carley Maguire MD Hospital discharge follow-up (Primary Dx); Metastatic cancer to liver (CMS/HCC V24, CMS/HCC V28); Primary hypertension 01/05/2025 Telephone Adult Medicine [address] [phone] Carley Maguire MD 01/05/2025 [place] Adult [address] [phone] Carley Maguire MD 12/30/2024 Telephone Adult Medicine [facility] [address] [place] [phone] Carley Maguire MD 12/22/2024 1:47 PM EDT - 12/22/2024 2:55 PM EDT Emergency [facility] [address] [place] [phone] Madhu Zaldivar MD Closed fracture of multiple ribs of both sides, initial encounter (Primary Dx) Discharge Disposition: Home or Self Care 12/21/2024 7:10 PM EDT - 12/21/2024 9:54 PM EDT Emergency [facility] [address] [place] [phone] Discharge Disposition: Home or Self Care 12/11/2024 Telephone Adult Medicine [facility] [address] [place] [phone] Carley Maguire MD from Last 3 Months Immunizations Immunization Administration Dates Next Due Influenza Quadravalent, MDCK [...] History Medical History Date Comments Bipolar illness ([facility] V24 , [facility] V28) 07/21/2011 DX:Bipolar illness (HCC) Morbid obesity ([facility] V24, [facility] V28) 07/21/2011 DX:Morbid obesity (HCC) Schizoaffective disorder, bi polar type ([facility] V24, [facility] V28) 07/21/2011 DX:Schizoaffective disorder , bipolar type [...] colon Hypertriglyceridemia 06/17/2017 DX:Hypertri glyceridemia Dilated cardiomyopathy ([facility] V24, [facility] V28) 07/18/2017 DX:Dilated cardiomyopathy (H CC); COMMENT: Cardiac cath 07/11/2017 [facility] - nonobstructive CAD Chronic systolic heart failu re ([facility] V24, [facility] V28) 06/17/2017 DX:Chronic systolic heart fa ilure ([facility]); COMMENT: Neg cardiac cath (nonobstructive CAD) 07/11/17 at [facility] Postmenopausal bleeding 08/31/2018 DX:Postm enopausal bleeding Infiltrating ductal carcinom a of breast ([facility] V24, [facility] V28) 12/26/2011 DX:Infiltrating ductal carc inoma of [...] Pressure 131/78 01/27/2025 9:55 AM EDT Pulse 64 01/11/2025 2:24 PM EDT Temperature 36.4 C (97.6 F) 01/27/2025 9:55 AM EDT Respiratory Rate 16 01/06/2025 12:54 PM EDT Oxygen Saturation 98% 01/27/2025 9:55 AM EDT Inhaled Oxygen Concentration - - Weight 102 kg (224 lb) 01/27/2025 9:55 AM EDT Height 167.6 cm (5' 6 ) 01/11/2025 2:24 PM EDT Body Mass Index 36.15 01/11/2025 2:24 PM EDT Plan of Treatment Upcoming Encounters Date Type Department Care Team (Late st Contact Info) Description 02/02/2025 12:30 PM EDT Office Visit Adult Medicine [address] [phone] Carley Maguire MD [address] [place] [address] 02/10/2025 11:00 AM EST Office Visit Adult Medicine [address] [phone] Joshua Hampton PA [address] [place] [address] 03/16/2025 11:15 AM EST Office Visit [facility] [address] [place] [phone] Sterling Montes MD [address] [place] [address] Health Maintenance Due Date Last Done Comments Hepatitis A Vaccines (1 of 2 - Risk 2-dose series) 1988 Hepatitis B Vaccines (1 of 3 - 19+ 3-dose series) 1988 Pneumococcal Vaccine: 50+ Years (1 of 2 - PCV) 1988 Zoster Vaccines (1 of 2) 1988 RSV Immunization Adult Patients (1 - Risk 50-74 years 1-dose series) 08/06/2019 HIV Screening 03/16/2022 Social Influencers of Health Screening 03/16/2022 Depression Screening 04/08/2024 COVID-19 Vaccine ( season) 2024 04/19/2022, 04/19/2021, 08/21/2020, Additional history exists Influenza Vaccine (#1) 2024 01/16/2018, 2016 Hypertension/CHF/CAD Annual BMP Blood Test 01/29/2026 01/29/2025, 01/11/2025, 06/03/2024, Additional history exists Breast Cancer Screening 04/24/2026 04/24/19 25, 01/08/2023, [...] Procedure Name Priority Date/Time Associated Diagnosis Comments CBC WITH AUTO DIFFERENTIAL Routine 01/29/2025 4:49 PM EDT Malignant neoplasm of breast in female, estrogen receptor positive, unspecified laterality, unspecified site of breast (CMS/HCC V24, CMS/HCC V28) CBC AND DIFFERENTIAL Routine 01/29/2025 4:49 PM EDT Malignant neoplasm of breast in female, estrogen receptor positive, unspecified laterality, unspecified site of breast (CMS/HCC V24, CMS/HCC V28) COMPREHENSIVE METABOLIC PANEL Routine 01/29/2025 4:49 PM EDT Malignant neoplasm of breast in female, estrogen receptor positive, unspecified laterality, unspecified site of breast (CMS/HCC V24, CMS/HCC V28) CBC WITH AUTO DIFFERENTIAL Routine 01/11/2025 2:57 PM EDT Personal history of breast cancer CANCER ANTIGEN 27-29 Routine 01/11/2025 2:57 PM EDT Personal history of breast cancer COMPREHENSIVE METABOLIC PANEL Routine 01/11/2025 2:57 PM EDT Personal history of breast cancer CBC AND DIFFERENTIAL Routine 01/11/2025 2:57 PM EDT Personal history of breast cancer CULTURE URINE Routine 01/08/2025 12:00 AM EDT Frequency of micturition XR RIBS W CHEST 3+ VIEWS RIGHT STAT 12/22/2024 12:16 PM EDT EXTERNAL CLINICAL LAB 12/18/2024 COLONOSCOPY Routine 08/04/2024 9:08 AM EDT Hx of colonic polyps MG MAMMO DIGITAL DIAGNOSTIC W UMER BILAT Routine 04/24/2024 8:36 AM EST 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 WBC 8.9 4.8 - 10.8 K/mcL LAB HEMETOLOGY METHOD 01/29/2025 7:26 PM EDT [facility] RBC 4.40 3.80 - 4.80 M/mcL LAB HEMETOLOGY METHOD 01/29/2025 7:26 PM EDT [facility] Hemoglobin 12.9 11.5 - 16.0 g/dL LAB HEMETOLOGY METHOD 01/29/2025 7:26 PM EDT [facility] Hematocrit 42.8 35.0 - 47.0 % LAB HEMETOLOGY METHOD 01/29/2025 7:26 PM EDT [facility] MCV 97.5 79.0 - 98.0 FL LAB HEMETOLOGY METHOD 01/29/2025 7:26 PM EDT [facility] MCH 29.4 27.0 - 32.0 pcg LAB HEMETOLOGY METHOD 01/29/2025 7:26 PM [facility] MCHC 30.1(L) 32.0 - 37.0 g/dL LAB HEMETOLOGY METHOD 01/29/2025 7:26 PM [facility] RDW 14.5 11.0 - 15.0 % LAB HEMETOLOGY METHOD 01/29/2025 7:26 PM [facility] Platelets 276 130 - 400 K/mcL LAB HEMETOLOGY METHOD 01/29/2025 7:26 PM [facility] MPV 10.8 7.0 - 11.0 FL LAB HEMETOLOGY METHOD 01/29/2025 7:26 PM [facility] NRBC 0.0 <1.0 % LAB HEMETOLOGY METHOD 01/29/2025 7:26 PM [facility] NRBC Absolute 0.00 <0.10 K/mcL LAB HEMETOLOGY METHOD 01/29/2025 7:26 PM [facility] Neutrophils Relative 67.5 % LAB HEMETOLOGY METHOD 01/29/2025 7:26 PM [facility] Lymphocytes Relative 22.7 % LAB HEMETOLOGY METHOD 01/29/2025 7:26 PM [facility] Monocytes Relative 6.8 % LAB HEMETOLOGY METHOD 01/29/2025 7:26 PM [facility] Eosinophils Relative 1.5 % LAB HEMETOLOGY METHOD 01/29/2025 7:26 PM [facility] Basophils Relative 0.8 % LAB HEMETOLOGY METHOD 01/29/2025 7:26 PM [facility] Immature Granulocytes Relative 0.7 % LAB HEMETOLOGY METHOD 01/29/2025 7:26 PM [facility] Neutrophils Absolute 6.02 1.50 - 7.00 K/mcL LAB HEMETOLOGY METHOD 01/29/2025 7:26 PM EDT [facility] Lymphocytes Absolute 2.02 1.00 - 5.00 K/mcL LAB HEMETOLOGY METHOD 01/29/2025 7:26 PM EDT [facility] Monocytes Absolute 0.61 0.20 - 1.00 K/mcL LAB HEMETOLOGY METHOD 01/29/2025 7:26 PM EDT [facility] Eosinophils Absolute 0.13 0.00 - 0.50 K/[facility] LAB HEMETOLOGY METHOD 01/29/2025 7:26 PM EDT [facility] Basophils Absolute 0.07 0.00 - 0.20 K/[facility] LAB HEMETOLOGY METHOD 01/29/2025 7:26 PM EDT [facility] Immature Granulocytes Absolute 0.06(H) 0.00 - 0.03 K/[facility] LAB HEMETOLOGY METHOD 01/29/2025 7:26 PM EDT [facility] Blood Venous blood specimen / Unknown Venipuncture / Unknown 01/29/2025 4:49 PM EDT 01/29/2025 4:49 PM EDT us Sterling Montes MD LAB BLOOD ORDERABLES Final R esult [facility] [address] [place] [address], * (ABNORMAL) Comprehensive metabolic panel (01/29/2025 4:49 PM EDT) Only the most recent of2 resultswithin the time period is included. Sodium 137 133 - 145 mmol/L LAB CHEMISTRY METHOD 01/29/2025 7:29 PM EDT [facility] Potassium 4.3 3.5 - 5.5 mmol/L LAB CHEMISTRY METHOD 01/29/2025 7:29 PM EDT [facility] Chloride 102 96 - 110 mmol/L LAB CHEMISTRY METHOD 01/29/2025 7:29 PM [facility] CO2 28 21 - 32 mmol/L LAB CHEMISTRY METHOD 01/29/2025 7:29 PM [facility] Anion Gap 7 3 - 11 LAB CHEMISTRY METHOD 01/29/2025 7:29 PM [facility] Glucose 70 70 - 100 mg/dL LAB CHEMISTRY METHOD 01/29/2025 7:29 PM [facility] BUN 26(H) 5 - 25 mg/dL LAB CHEMISTRY METHOD 01/29/2025 7:29 PM [facility] Creatinine 0.86 0.50 - 1.10 mg/dL LAB CHEMISTRY METHOD 01/29/2025 7:29 PM [facility] eGFR 80 >=60 mL/min/1. 73m2 LAB CHEMISTRY METHOD 01/29/2025 7:29 PM [facility] Comment:Calculation based on the Chronic Kidney Disease Epidemiology Collaboration (CKD-EPI) equation refit without adjustment for race. BUN/Creatinine Ratio 30.2 LAB CHEMISTRY METHOD 01/29/2025 7:29 PM [facility] Calcium 10.8(H) 8.5 - 10.5 mg/dL LAB CHEMISTRY METHOD 01/29/2025 7:29 PM [facility] AST (SGOT) 117(H) 10 - 42 unit/L LAB CHEMISTRY METHOD 01/29/2025 7:29 PM [facility] ALT (SGPT) 59 10 - 60 unit/L LAB CHEMISTRY METHOD 01/29/2025 7:29 PM [facility] Alkaline Phosphatase 434(H) 42 - 121 unit/L LAB CHEMISTRY METHOD 01/29/2025 7:29 PM [facility] Total Protein 7.0 6.0 - 8.0 g/dL LAB CHEMISTRY METHOD 01/29/2025 7:29 PM EDT [facility] Albumin 3.0(L) 3.2 - 5.0 g/dL LAB CHEMISTRY METHOD 01/29/2025 7:29 PM EDT [facility] Total Bilirubin 1.0 0.0 - 1.4 mg/dL LAB CHEMISTRY METHOD 01/29/2025 7:29 PM EDT [facility] Blood Venous blood specimen / Unknown Venipuncture / Unknown 01/29/2025 4:49 PM EDT 01/29/2025 4:49 PM EDT Sterling Montes MD LAB BLOOD ORDERABLES Final R esult [facility] [address] [place] [address], [place] [phone] * (ABNORMAL) Cancer antigen 27-29 (01/11/2025 2:57 PM EDT) CA 27.29 >9000.0(H ) <38.6 U/mL 01/14/2025 1:11 PM EDT [facility] Comment: The Siemens Advia RIGIDaur [id number] Chemiluminescent Immunoassay is used. Results obtained with different assay methods or kits cannot be used interchangeably. Results cannot be interpreted as absolute evidence of the presence or absence of malignant disease. Test performed at [facility], [address], [place] [address] Jazmine Darling MD, PhD - Textile Cutting Machine Operator Blood Venous blood specimen / Unknown Venipuncture / Unknown 01/11/2025 2:57 PM EDT 01/11/2025 4:46 PM EDT Sterling Montes MD LAB BLOOD ORDERABLES Final R esult [facility] [address] [place] [address] * (ABNORMAL) Culture urine (01/08/2025 12:00 AM EDT) Culture, Urine >=100,000 CFU/mL Streptococcus beta-hemolytic Group B(A) 01/09/2025 2:03 PM EDT [facility] Comment: Susceptibility testing is not routinely performed for Beta Streptococcus isolates since these organisms are predictably sensitive to Penicillin. If the Patient is not responding, is allergic to Penicillin, or further therapeutic information is requir ed, please consult an Infectious Disease Specialist. Urine Urine specimen obtained by clean catch procedure / Unknown 01/08/2025 01/08/2025 5:26 PM EDT Narrative [facility] - 01/09/2025 2:03 PM EDT Additional colony types present in insignificant amounts. us Jojo [facility] LAB MICROBIOLOGY - GENERAL ORDERABLES Final Result [facility] [address] [place] [address], [place] [phone] * XR Ribs w Chest 3+ Views Right (12/22/2024 12:16 PM EDT) Anatomical Region Laterality Modality Body Right Radiographic Peggy ging 12/22/2024 12:2 1 PM EDT Impressions 12/22/2024 12:24 PM EDT Displaced bilateral rib fractures. -------- FINAL REPORT -------- Dictated By: Jay Jay Byrnes Dictated Date: 12/22/2024 12:21 ET Assigned Physician: Jay Jay Byrnes Reviewed and Electronically Signed By: Jay Jay Byrnes Signed Date: 12/22/2024 12:24 ET Workstation ID: [id number] Transcribed By: Self Edit Transcribed Date: 12/22/2024 12:21 ET Narrative 12/22/2024 12:24 PM EDT PROCEDURE: Chest radiograph and dedicated views of the right ribs. HISTORY: pain. COMPARISON: None. FINDINGS: Lungs are mildly hypoventilatory. Patchy opacities at the bases suggesting mild atelectasis. Mild cardiomegaly. Trace atherosclerotic calcification of the aorta. Multiple surgical clips along the lateral left chest wall. No pneumothorax, pleural effusion, or pulmonary edema. Mild S-shaped curvature of the thoracolumbar spine with small endplate osteophytes. Mild degenerative changes of the left shoulder. There is a displaced fracture of the right posterolateral 3rd rib and a mildly displaced fracture of the right lateral 6th rib. There is also mildly displaced fracture of the posterior left 5th rib. Procedure Note Jay Jay Byrnes MD - 12/22/2024 PROCEDURE: Chest radiograph and dedicated views of the right ribs. HISTORY: pain. COMPARISON: None. FINDINGS: Lungs are mildly hypoventilatory. Patchy opacities at the basessuggesting mild atelectasis. Mild cardiomegaly. Trace atheroscleroticcalcification of the aorta. Multiple surgical clips along the lateralleft chest wall. No pneumothorax, pleural effusion, or pulmonary edema.Mild S-shaped curvature of the thoracolumbar spine with small endplateosteophytes. Mild degenerative changes of the left shoulder. There is a displaced fracture of the right posterolateral 3rd rib and amildly displaced fracture of the right lateral 6th rib. There is also mildly displaced fracture of the posterior left 5th rib. IMPRESSION: Displaced bilateral rib fractures. -------- FINAL REPORT -------- Dictated By: Jay Jay Byrnes Dictated Date: 12/22/2024 12:21 ET Assigned Physician: Jay Jay Byrnes Reviewed and Electronically Signed By: Jay Jay Byrnes Signed Date: 12/22/2024 12:24 ET Workstation ID: [id number] Transcribed By: Self Edit Transcribed Date: 12/22/2024 12:21 ET Madhu Zaldivar MD IMG XR PROCEDURES Final Result * External clinical lab (12/18/2024) Provider [facility] LAB BLOOD ORDERABLES Fin al Result * COLONOSCOPY Anesthesia - MAC; [facility] ENDOSCOPY (08/04/2024 9:08 AM EDT) Anatomical Region Laterality Modality Other 08/04/2024 8:44 AM EDT Impressions 08/04/2024 9:20 AM EDT - Preparation of the colon was poor. - Stool in the entire examined colon. - No specimens collected. Recommendation: - Repeat colonoscopy in 3 months because the bowel preparation was suboptimal. Narrative 08/04/2024 9:20 AM EDT [facility] Patient Name: Jenny Waldrop Procedure Date: [...] history of colonic polyps CPT copyright 2020 [employer]. All rights reserved. The codes documented in this report are preliminary and upon utilization management nurse review may be revised to meet current compliance requirements. Zackary Feliciano MD 08/04/2024 9:20:08 AM This report has been signed electronically.Zackary Feliciano MD Number of Addenda: 0 Note Initiated On: 08/04/2024 8:44 AM Endoscopy Department at [facility] - [address] [place] [phone] Procedure Note Zackary Feliciano MD - 08/04/2024 [facility] Patient Name: Jenny Waldrop Procedure Date: [...] history of colonic polyps CPT copyright 2020 [employer]. All rights reserved. The codes documented in this report are preliminary and upon utilization management nurse reviewmay be revised to meet current compliance requirements. Zackary Feliciano MD 08/04/2024 9:20:08 AM This report has been signed electronically.Zackary Feliciano MD Number of Addenda: 0 Note Initiated On: 08/04/2024 8:44 AM Endoscopy Department at [facility] - [address] [place] [phone] IMPRESSION: - Preparation of the colon was poor. - Stool in the entire examined colon. - No specimens collected. Recommendation: - Repeat colonoscopy in 3 months because the bowel preparation was suboptimal. us Zackary Feliciano MD GI~PROCEDURE ORDERABLES Fin al Result * [facility] Mammo Digital Diagnostic w Umer [...] mammogram recommended in 1 year. Mammo Location: [facility], [address] [place] [id number] -------- FINAL REPORT -------- Dictated By: Anastacio Pathak Dictated Date: 04/24/2024 08:14 ET Assigned Physician: Anastacio Pathak Reviewed and Electronically Signed By: Anastacio Pathak Signed Date: 04/24/2024 08:26 ET Workstation ID: [id number] Transcribed By: Self Edit Transcribed Date: 04/24/2024 [...] and CC projection is performed in the [employer] IO[employer] 2000-D unit. Computer aided detection utilizing the [...] MLO and CC projection is performed in the[employer] Ine 2000-D unit. Computer aided detection utilizing the [...] mammogram recommended in 1 year. Mammo Location: [facility] [place] [facility], [address] [place] [phone] -------- FINAL REPORT -------- Dictated By: Anastacio Pathak Dictated Date: 04/24/2024 08:14 ET Assigned Physician: Anastacio Pathak Reviewed and Electronically Signed By: Anastacio Pathak Signed Date: 04/24/2024 08:26 ET Workstation ID: [id number] Transcribed By: Self Edit Transcribed Date: 04/24/2024 08:14 ET Brittany Garcia MD IMG BI PROCEDURES Final Result * (ABNORMAL) Lipid panel (08/16/2023) Pathologist [facility] LDL/HDL Ratio 6(A) 0 - 4 Triglycerides 271(A) 0 - 150 mg/dL Cholesterol 174 0 - 200 mg/dL HDL 31(A) >=40 mg/dL LDL Cholesterol 89 0 - 100 mg/dL Blood Venous blood specimen / Unknown Historical Provider LAB BLOOD ORDERABLES Hollie l Result * Cervical Cancer Screening: HPV (03/21/2022) Pathologist [facility] Cervical Cancer Screening: HPV negative interpretation abstracted [...] classified as having normal bone density. [facility] Department of Internal Medicine recommends using [...] beclassified as having normal bone density. [facility] Department of Internal Medicine recommendsusing National [...] of fracture risk by FRAX. Carlee [facility] DXA PROCEDURES Final Result from Last 3 Months or Most Recently Relevant to Health Maintenance Insurance [facility] [employer] [facility] Care Teams Stage Settings Painter Relationship Specialty Start Date End Date Carley Maguire MD [address] [place] [phone] PCP - General Internal Medicine 11/13/21
--- OUTSIDE RECORDS SUMMARY | 2025-02-05 20:00 | XMS_ITS | Clinical Summary ---
Author Organization Unknown Care Team Providers Care Knotter Hand Name Role Phone CHAZ DEL RIO, MADI Unavailable Unavailable ABDOULAYE LIMA, MANUEL Unavailable Unavailable AARON RN, NURIA Unavailable Unavailable Payers Payer Name Policy Type Policy Number Effective Date Expira tion Date [facility] ([facility] [place] [id number] MEDICAID [place] [id number] Problems Condition Name Condition Details Condition Category [...] Arimidex 1 mg tablet 07-09 00:00: 00 06-04 23:59 :00 No [id number] 1 tablet EVERY AM 1 tablet EVERY AM (route: oral) Med Classific ation: Antineopl astics carvedilol 12.5 mg tablet 07-09 00:00: 00 01-21 23:59 :00 No [id number] 1 tablet Twice a day 1 tablet Twice a day (route: oral) Med Classific ation: Cardiovas cular Therapy Agents clonazepam 1 mg tablet 3- 00:00: 00 01-21 23:59 :00 No [id number] 1 tablet TWICE A DAY DAILY 1 tablet TWICE A DAY DAILY (route: oral) Alternate Route: BY MOUTH. Med Classific ation: Central Nervous System Agents clonazepam 1 mg tablet 07-09 00:00: 00 08-13 23:59 :00 No [id number] 1 tablet PRN 1 tablet PRN (route: oral) Med Classific ation: Central Nervous System Agents clozapine 100 mg tablet 2 00:00: 00 01-21 23:59 :00 No [id number] 3 tablet AT BEDTIME 3 tablet AT BEDTIME (route: oral) Alternate Route: BY MOUTH. Med Classific ation: Central Nervous System Agents desmopressi n 0.2 mg tablet 2 00:00: 00 03-07 23:59 :00 No [id number] 2 tablet AT BEDTIME 2 tablet AT BEDTIME (route: oral) Alternate Route: BY MOUTH. Med Classific ation: Endocrine Depakote 500 mg tablet,pedro luis yed release 05-21 00:00: 00 01-22 23:59 :00 No [id number] 1 tablet TWICE A DAY 1 tablet TWICE A DAY (route: oral) Alternate Route: BY MOUTH. Med Classific ation: Central Nervous System Agents lisinopril 2.5 mg tablet 4 00:00: 00 01-22 23:59 :00 No [id number] 1 tablet EVERY AM 1 tablet EVERY AM (route: oral) Med Classific ation: Cardiovas cular Therapy Agents lithium carbonate 300 mg capsule 07-09 00:00: 00 01-22 23:59 :00 No [id number] 1 capsule EVERY AM 1 capsule EVERY AM (route: oral) Med Classific ation: Central Nervous System Agents lithium carbonate 300 mg capsule 4- 00:00: 00 01-22 23:59 :00 No [id number] 2 capsule EVERY PM 2 capsule EVERY PM (route: oral) Med Classific ation: Central Nervous System Agents omeprazole 20 mg capsule,del ayed release 4- 00:00: 00 01-22 23:59 :00 No [id number] 1 capsule EVERY AM 1 capsule EVERY AM (route: oral) Med Classific ation: Gastroint estinal Therapy Agents oxybutynin chloride 5 mg tablet 4- 00:00: 00 01-22 23:59 :00 No [id number] 2 tablet EVERY PM 2 tablet EVERY PM (route: oral) Med Classific ation: Genitouri nary Therapy Vitamin D3 25 mcg (1,000 unit) capsule 09-03 00:00: 00 01-22 23:59 :00 No [id number] 1 mcg EVERY AM 1 mcg EVERY AM (route: oral) Med Classific ation: Electroly te Balance-N utritiona l Products doxycycline hyclate 100 mg capsule 8 00:00: 00 01-04 23:59 :00 No [id number] 1 capsule 2 TIMES DAILY 1 capsule 2 TIMES DAILY (route: oral) Med Classific ation: Anti-Infe ctive Agents cephalexin 500 mg capsule 11-02 00:00: 00 11-05 23:59 :00 No [id number] 1 capsule 4 TIMES DAILY 1 capsule 4 TIMES DAILY (route: oral) Med Classific ation: Anti-Infe ctive Agents desmopressi n 0.2 mg tablet 2021-04 130 00:00: 00 01-22 23:59 :00 No [id number] 3 tablet BEDTIME 3 tablet BEDTIME (route: oral) Med Classific ation: Endocrine Celebrex 100 mg capsule 6-05 00:00: 00 01-21 23:59 :00 No [id number] 1 capsule 2 TIMES DAILY 1 capsule 2 TIMES DAILY (route: oral) Med Classific ation: Analgesic , Anti-infl ammatory or Antipyret ic clonazepam 1 mg tablet 2024-04 017 00:00: 00 Yes [id number] 1 tablet EVERY AM 1 tablet EVERY AM (route: oral) Alternate Route: BY MOUTH. Med Classific ation: Central Nervous System Agents clozapine 100 mg tablet 2024-04 00:00: 00 Yes [id number] 3 tablet BEDTIME 3 tablet BEDTIME (route: oral) Alternate Route: BY MOUTH. Med Classific ation: Central Nervous System Agents Depakote 500 mg tablet,pedro luis yed release 2024-04 00:00: 00 01-28 23:59 :00 No [id number] 1 tablet 2 TIMES DAILY 1 tablet 2 TIMES DAILY (route: oral) Alternate Route: BY MOUTH. Med Classific ation: Central Nervous System Agents desmopressi n 0.2 mg tablet 2024-04 00:00: 00 Yes [id number] 3 tablet BEDTIME 3 tablet BEDTIME (route: oral) Med Classific ation: Endocrine lisinopril 2.5 mg tablet 2024-04 00:00: 00 Yes [id number] 1 tablet EVERY AM 1 tablet EVERY AM (route: oral) Med Classific ation: Cardiovas cular Therapy Agents omeprazole 20 mg capsule,del ayed release 2024-04 00:00: 00 Yes [id number] 1 capsule EVERY AM 1 capsule EVERY AM (route: oral) Med Classific ation: Gastroint estinal Therapy Agents oxybutynin chloride 5 mg tablet 2024-04 00:00: 00 Yes [id number] 2 tablet BEDTIME 2 tablet BEDTIME (route: oral) Med Classific ation: Genitouri nary Therapy Vitamin D3 25 mcg (1,000 unit) capsule 2024-04 00:00: 00 Yes [id number] 1 mcg EVERY AM 1 mcg EVERY AM (route: oral) Med Classific ation: Electroly te Balance-N utritiona l Products Celebrex 100 mg capsule 2024-04 00:00: 00 Yes [id number] 1 capsule 2 TIMES DAILY 1 capsule 2 TIMES DAILY (route: oral) Med Classific ation: Analgesic , Anti-infl ammatory or Antipyret ic lithium carbonate 300 mg tablet 2024-04 00:00: 00 Yes [id number] 1 tablet 2 TIMES DAILY 1 tablet 2 TIMES DAILY (route: oral) Med Classific ation: Central Nervous System Agents Depakote 500 mg tablet,pedro luis yed release 2024-04 00:00: 00 Yes [id number] .5 tablet EVERY AM .5 tablet EVERY AM (route: oral) Med Classific ation: Central Nervous System Agents Depakote 500 mg tablet,pedro luis yed release 2024-04 00:00: 00 Yes [id number] 1 tablet BEDTIME 1 tablet BEDTIME (route: oral) Med Classific ation: Central Nervous System Agents Immunizations Ordered Immunization Name Filled Immunization Name Date Status Comments Refusal Reason INFLUENZA, TIV (INACTIVATED) 2018-04-08 00:00:00 PNEUMOCOCCAL (PPV), PPV 2018-04-08 00:00:00 Vital Signs Vital Name Observation Time Observation Value Commen ts Temperature 2025-01-14 22:08:00.000 98 [degF] Temperature 2025-01-06 10:08:00.000 98 [degF] Temperature 2024-12-25 11:28:00.000 98 [degF] Temperature 2024-12-17 21:14:00.000 98 [degF] BMI (%) 2025-01-06 10:08:00.000 36 kg/m2 Height 2025-01-06 10:08:00.000 67 [in_us] Pulse 2025-01-28 11:12:00.000 94 /min Pulse 2025-01-21 09:08:00.000 88 /min Pulse 2025-01-14 22:08:00.000 73 /min Pulse 2025-01-06 10:08:00.000 77 /min Pulse 2024-12-25 11:28:00.000 75 /min Pulse 2024-12-17 21:14:00.000 78 /min O2 Saturation (%) 2025-01-28 11:12:00.000 95 % Respirations 2025-01-28 11:12:00.000 12 /min Respirations 2025-01-21 09:08:00.000 12 /min Respirations 2025-01-14 22:08:00.000 12 /min Respirations 2025-01-06 10:08:00.000 12 /min Respirations 2024-12-25 11:28:00.000 12 /min Respirations 2024-12-17 21:14:00.000 12 /min Weight (lbs) 2025-01-06 10:08:00.000 235 [lb_av] Systolic Blood Pressure 2025-01-28 11:12:00.000 118 mm [Hg] Systolic Blood Pressure 2025-01-21 09:08:00.000 126 mm [Hg] Systolic Blood Pressure 2025-01-14 22:08:00.000 125 mm [Hg] Systolic Blood Pressure 2025-01-06 10:08:00.000 135 mm [Hg] Systolic Blood Pressure 2024-12-25 11:28:00.000 122 mm [Hg] Systolic Blood Pressure 2024-12-17 21:14:00.000 133 mm [Hg] Diastolic Blood Pressure 2025-01-28 11:12:00.000 80 mm [Hg] Diastolic Blood Pressure 2025-01-21 09:08:00.000 80 mm [Hg] Diastolic Blood Pressure 2025-01-14 22:08:00.000 70 mm [Hg] Diastolic Blood Pressure 2025-01-06 10:08:00.000 75 mm [Hg] Diastolic Blood Pressure 2024-12-25 11:28:00.000 75 mm [Hg] Diastolic Blood Pressure 2024-12-17 21:14:00.000 82 mm [Hg] Plan of Treatment Planned Activity [...] HEALTH.] Future Scheduled Test SKILLED NU RSE WILL MAINTAIN SITUATIONAL AWARENESS FOR SAFETY AND WILL NOTIFY CLINICAL MEDICAL HEALTH RESEARCHER AND PHYSICIAN/PROVIDER WITH ANY CHANGE IN CONDITION. [code = SKILLED NURSE WILL MAINTAIN SITUATIONAL AWARENESS FOR SAFETY AND WILL NOTIFY CLINICAL MEDICAL HEALTH RESEARCHER AND PHYSICIAN/PROVIDER WITH ANY CHANGE IN CONDITION.] Future Scheduled Test SKILLED NU RSE TO PRE-POUR MEDICATION PER MEDICATION LIST EVERY SN VISIT [code = SKILLED NURSE TO PRE-POUR MEDICATION PER MEDICATION LIST EVERY SN VISIT] Future Scheduled Test SKILLED NU RSE TO REVIEW PATIENT MEDICATIONS. INSTRUCT PATIENT/CAREGIVER ON MONITORING OF EFFECTIVENESS, ADVERSE DRUG REACTIONS, SIDE EFFECTS OF ALL MEDICATIONS (PRESCRIPTION/-OTC), AND HOW AND WHEN TO REPORT PROBLEMS. [code = SKILLED NURSE TO REVIEW PATIENT MEDICATIONS. INSTRUCT PATIENT/CAREGIVER ON MONITORING OF EFFECTIVENESS, ADVERSE DRUG REACTIONS, SIDE EFFECTS OF ALL MEDICATIONS (PRESCRIPTION/-OTC), AND HOW AND WHEN TO REPORT PROBLEMS.] Future Scheduled Test SKILLED NU RSE TO ASSESS PATIENT S PSYCHOSOCIAL STATUS TO IDENTIFY POTENTIAL ISSUES THAT MAY COMPLICATE THE PROVISION OF THE PLAN OF CARE INCLUDING THE PATIENT S ABILITY TO ACCESS COMMUNITY RESOURCES AND PSYCHOSOCIAL SUPPORT SERVICES. [code = SKILLED NURSE TO ASSESS PATIENT S PSYCHOSOCIAL STATUS TO IDENTIFY POTENTIAL ISSUES THAT MAY COMPLICATE THE PROVISION OF THE PLAN OF CARE INCLUDING THE PATIENT S ABILITY TO ACCESS COMMUNITY RESOURCES AND PSYCHOSOCIAL SUPPORT SERVICES.] Future Scheduled Test SKILLED NU RSE FOR O/A OF CLIENT'S SOCIAL ISOLATION AND PROVIDE ASSISTANCE TO CLIENT IN DEVELOPMENT OF PLANNED ACTIVITIES [code = SKILLED NURSE FOR O/A OF CLIENT'S SOCIAL ISOLATION AND PROVIDE ASSISTANCE TO CLIENT IN DEVELOPMENT OF PLANNED ACTIVITIES] Future Scheduled Test SKILLED NU RSE FOR O/A OF ALTERED THOUGHT PROCESS AND/OR DISRUPTION IN COGNITIVE OPERATIONS AND ACTIVITIES [code = SKILLED NURSE FOR O/A OF ALTERED THOUGHT PROCESS AND/OR DISRUPTION IN COGNITIVE OPERATIONS AND ACTIVITIES] Future Scheduled Test SKILLED NU RSE FOR O/A AND SKILLED TEACHING OF COPING SKILLS TO MANAGE ANXIETY AND MAINTAIN SAFETY. [code = SKILLED NURSE FOR O/A AND SKILLED TEACHING OF COPING SKILLS TO MANAGE ANXIETY AND MAINTAIN SAFETY.] Future Scheduled Test SKILLED NU RSE FOR O/A, TEACHING RELATED TO GERD OR EARLY IDENTIFICATION OF EXACERBATION OF DISEASE PROCESS. [code = SKILLED NURSE FOR O/A, TEACHING RELATED TO GERD OR EARLY IDENTIFICATION OF EXACERBATION OF DISEASE PROCESS.] Goal 2023-08-15 Patient Goal - T O EXERCISE MORE AND DECREASE MY NEED FOR MEDICATION. Goal 2018-09-10 Patient Goal - TAKE LESS MED ICATION Goal 2023-06-13 Patient Goal - T O [...] AND DECREASE MY NEED FOR MEDICATION. Goal 2020-08-31 Patient Goal - TAKE LESS [...] Goal - TAKE LESS MED ICATION Goal 2018-11-07 Patient Goal - TAKE LESS MED ICATION Goal Patient Goal - T O EXERCISE MORE AND DECREASE MY NEED FOR MEDICATION. Goal 2024-12-08 Patient Goal - T O EXERCISE MORE AND DECREASE MY NEED FOR MEDICATION. Goal 2024-10-08 Patient Goal - T O EXERCISE MORE AND DECREASE MY NEED FOR MEDICATION. Goal 2024-08-06 Patient Goal - T O EXERCISE MORE AND DECREASE MY NEED FOR MEDICATION. Goal 2024-06-08 Patient Goal - T O EXERCISE MORE [...] CARE WILL BE ESTABLISHED THAT MEETS PATIENT'S ALF NEEDS AND INCLUDES PATIENT GOAL FOR HOME HEALTH. Goal Provider Goal - PATIENT WILL REMAIN SAFE IN THE COMMUNITY AND WILL BE FREE OF DANGER TO SELF AND OTHERS THROUGHOUT THE CERTIFICATION PERIOD. Goal Provider Goal - PATIENT WILL COMPLY WITH MEDICATION WHEN SKILLED NURSE PRE-POURS MEDICATION THROUGHOUT CERTIFICATION PERIOD. Goal Provider Goal - PATIENT/CAREGIVER WILL VERBALIZE UNDERSTANDING OF EDUCATION PROVIDED ON MEDICATIONS BY THE END OF THE CERTIFICATION PERIOD. Goal Provider Goal - PSYCHOSOCIAL [...] THROUGHOUT CERTIFICATION PERIOD. Goal Provider Goal - EXACERBATIONS O GERD WILL BE PROMPTLY IDENTIFIED AND INTERVENTIONS IMPLEMENTED TO MINIMIZE RISKS TO PATIENT BY END OF EPISODE. Encounters Start Date/Time End Date/Time Encounter Type Admission Type Attending Clinicians Care Facility Care Department Encounter ID Discharge Date Discharge Status Discharge Condition Discharge Reason Percent Goals Met 2024-12-09 00:00:00 2025-02-06 00:00:00 Outpatient RECERTIFIC NURIA GAN [facility] [id number] 24.39
== END 2025-02-01 16:32 | disposition home or self-care (01) ==
LOC: HO.LABR 16:31
PROVIDERS: PCP Internal Medicine; Visit Provider Psychiatry & Neurology Psychiatry
DX: Z79.899 Other long term (current) drug therapy (principal)
CPT/HCPCS: 36415; 85025